=== PATIENT | female | born 1935 | race Caucasian/White ===

== ENCOUNTER → 2016-05-02 | Outpatient (CLI) | payer MEDICARE, BC ==
[~2016-05-02] MED LIST: CALC-136 PO; CELE-19 PO; FISH100049 PO; IRON27TA PO; ONETAB35 PO; PANT40TA2 PO; TYLE1TAB5 PO; VITA-130 PO
--- NOTE | 2016-05-02 09:58 | REPMRS ---
Patient History The patient states she has not had a clinical breast exam in over a year. Patient is postmenopausal. No known family history of cancer. Took hormonal contraceptives for 3 years. Took unspecified hormones for 1 year. Digital Mammo Screening Bilat: May 02, 2016 - Exam #: [id number] Bilateral CC and MLO view(s) were taken. Technologist: Daija Angeles, Technologist Prior study comparison: April 27, 2015, bilateral digital mammo screening bilat performed at [facility]. May 02, 2014, bilateral digital mammo screening bilat performed at [facility]. FINDINGS: There are scattered fibroglandular densities. There has been no change in the appearance of the mammogram from the prior studies. There is a mild amount of residual fibroglandular tissue which is fairly symmetric. There is no interval development of dominant mass, architectural distortion, or clustered microcalcification suggestive of malignancy. ASSESSMENT: BI-RADS/ACR category 1 mammogram. Negative. Recommendation Routine screening mammogram in 1 year (for women over age 40). This mammogram was interpreted with the aid of an FDA-approved computer-aided dectection system. Electronically Signed By: Saroj Flores MD 05/02/16 0958
== END ==
LOC: M RAD 09:34
PROVIDERS: ATTEND Nurse Practitioner Family
DX: Z12.31 Encounter for screening mammogram for malignant neoplasm of breast (principal); Z78.0 Asymptomatic menopausal state

== ENCOUNTER → 2017-06-03 | Outpatient (CLI) | payer MEDICARE, BC | LOC: M RAD 12:03 | DX: Z12.31 Encounter for screening mammogram for malignant neoplasm of breast (principal); Z78.0 Asymptomatic menopausal state; Z92.0 Personal history of contraception; Z92.29 Personal history of other drug therapy | CPT/HCPCS: 77067 ==

== ENCOUNTER 2017-10-05 18:55 | Emergency (ER) | payer MEDICARE, BC ==
[2017-10-05] MEDS: METOCLOPRAMIDE INJ 10MG/2ML VIAL (J2765) IV (19:49)
[2017-10-05] MEDS: NS 1,000 ML IV (19:49)
[2017-10-05 19:54] LABS: BASO % 0.1 % (0.0-1.0); EOS # 0.1 10^3/uL (0.0-0.50); EOS % 0.8 % (0.0-3.0); HEMATOCRIT 37.9 % (36.0-47.0); HEMOGLOBIN 12.5 g/dl (12.0-15.5); IMMATURE GRANULOCYTE % 0.4 % (0-3.0); LYMPH # 0.7 10^3/uL (1.5-4.5); LYMPH % 6.4 % (24.0-44.0); MEAN CORPUSCULAR HEMOGLOBIN 32.2 pg (27.0-33.0); MEAN CORPUSCULAR VOLUME 97.7 fl (80.0-96.0); MONO # 0.3 10^3/uL (0.0-0.8); MONO % 2.7 % (0.0-5.0); NEUTROPHILS # 9.2 10^3/uL (1.8-7.7); NEUTROPHILS % 89.6 % (36.0-66.0); PLATELET COUNT, AUTOMATED 224 10^3/uL (150-450); RED BLOOD COUNT 3.88 10^6/uL (4.00-5.40); RED CELL DISTRIBUTION WIDTH 12.9 % (11.5-14.5); WHITE BLOOD COUNT 10.3 10^3/uL (4.0-10.0)
[2017-10-05 19:58] LABS: INR 1.09; PROTHROMBIN TIME 14.2 SECONDS (12.1-14.4)
[2017-10-05 19:59] LABS: PARTIAL THROMBOPLASTIN TIME 27.6 SECONDS (25.4-37.6)
[2017-10-05] MEDS: MORPHINE 4 MG/ML 1ML VIAL/SYRINGE (J2270) IV (20:00)
[2017-10-05 20:08] LABS: ALBUMIN 3.6 GM/DL (3.2-5.2); ALBUMIN/GLOBULIN RATIO 1.16 (1.00-1.93); ALKALINE PHOSPHATASE 52 U/L (45-117); ALT/SGPT 16 U/L (12-78); ANION GAP 9 MEQ/L (8-16); AST/SGOT 15 U/L (7-37); BILIRUBIN,DIRECT 0.2 MG/DL (0.0-0.2); BILIRUBIN,TOTAL 0.8 MG/DL (0.2-1.0); BLOOD UREA NITROGEN 20 MG/DL (7-18); CALCIUM LEVEL 8.9 MG/DL (8.8-10.2); CARBON DIOXIDE LEVEL 28 MEQ/L (21-32); CHLORIDE LEVEL 103 MEQ/L (98-107); CREATININE FOR GFR 0.98 MG/DL (0.55-1.30); GLOMERULAR FILTRATION RATE 58.1 (>32); GLUCOSE, FASTING 135 MG/DL (70-100); LIPASE 88 U/L (73-393); POTASSIUM SERUM 4.5 MEQ/L (3.5-5.1); SODIUM LEVEL 140 MEQ/L (136-145); TOTAL PROTEIN 6.7 GM/DL (6.4-8.2)
[2017-10-05 20:16] LABS: LACTIC ACID SEPSIS PROTOCOL 1.3 MMOL/L (0.4-2.0)
== END 2017-10-05 21:00 | disposition home or self-care (01) ==
LOC: M ED 18:55
DX: K52.9 Noninfective gastroenteritis and colitis, unspecified (principal); K21.9 Gastro-esophageal reflux disease without esophagitis; M19.90 Unspecified osteoarthritis, unspecified site; M54.2 Cervicalgia; G89.29 Other chronic pain; Z95.0 Presence of cardiac pacemaker; Z79.899 Other long term (current) drug therapy
CPT/HCPCS: J2270

== ENCOUNTER → 2018-06-04 | Outpatient (CLI) | payer MEDICARE, BC ==
[~2018-06-04] MED LIST changes: -CELE-19 PO; +CELE1CAP4 PO; +GLUC1CAP9 PO; -IRON27TA PO; +IRON27TA2 PO; -PANT40TA2 PO; +PANT40TA3 PO; +SIMV40TA2 PO; -VITA-130 PO; +VITA500T PO
--- NOTE | 2018-06-04 11:00 | REPMRS ---
Patient History The patient states she has not had a clinical breast exam in over a year. No known family history of cancer. Took hormonal contraceptives for 3 years. Took unspecified hormones for 1 year. Digital Mammo Screening Bilat: June 04, 2018 - Exam #: [id number] Bilateral CC and MLO view(s) were taken. Technologist: Malathi Parker, Technologist Prior study comparison: June 03, 2017, bilateral digital mammo screening bilat performed at [facility]. May 02, 2016, bilateral digital mammo screening bilat performed at [facility]. April 27, 2015, bilateral digital mammo screening bilat performed at [facility]. FINDINGS: There are scattered fibroglandular densities. There is a pacemaker power plant projecting over the left axilla on the MLO view. There has been no change in the appearance of the mammogram from the prior studies. There is a mild amount of scattered fibroglandular density which is fairly symmetric. There is no interval development of dominant mass, architectural distortion, or clustered microcalcification suggestive of malignancy. 3-D tomosynthesis shows no additional findings. Assessment: BI-RADS/ACR category 2 mammogram. Benign Findings. Recommendation Routine screening mammogram of both breasts in 1 year (for women over age 40). This patient's Lifetime Breast Cancer RIsk is estimated at 0.9 %. This mammogram was interpreted with the aid of an FDA-approved computer-aided dectection system. Electronically Signed By: Max Johnston MD 06/04/18 7449
== END ==
LOC: M RAD 09:46
PROVIDERS: ATTEND Physician Assistant Medical
DX: Z12.31 Encounter for screening mammogram for malignant neoplasm of breast (principal); Z92.0 Personal history of contraception

== ENCOUNTER → 2019-12-16 | Outpatient (REF) | payer MEDICARE, BC ==
[~2019-12-16] MED LIST changes: +PANT40TA29 PO; -PANT40TA3 PO; -SIMV40TA2 PO; +SIMV40TA20 PO; +VITA-243 PO; -VITA500T PO
[2019-12-16 18:21] LABS: PERCENT SATURATION 38.2 % (13.2-45.0)
[2019-12-16 18:26] LABS: FOLATE 15.5 NG/ML
== END ==
LOC: M LAB REF 16:54
PROVIDERS: ATTEND Internal Medicine Nephrology
DX: D64.9 Anemia, unspecified (principal); N18.4 Chronic kidney disease, stage 4 (severe)

== ENCOUNTER → 2019-12-22 | Outpatient (CLI) | payer MEDICARE, BC ==
--- NOTE | 2019-12-22 13:39 | REP ---
INDICATION: CHRONIC KIDNEY DISEASE, STAGE 4 (SEVERE) W/ PVR. COMPARISON: CT chest 11/16/2015 showing a portion of upper pole left kidney TECHNIQUE: Standard renal ultrasound with color flow imaging FINDINGS: The right kidney is 8.6 x 4.2 x 3.9 cm. The cortical thickness is preserved but the length is diminished. 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 There is no hydronephrosis or hydroureter. Renal pelvis is mildly prominent but no gross hydronephrosis. Appearance suggest extrarenal pelvis I do not see a solid or cystic mass on the right. Color flow imaging was used on the right to separate vascular echoes from the extrarenal pelvis. The left kidney is 9.2 x 4.4 x 4.1 cm. Likewise cortical echogenicity is preserved but cortical thickness about 8 mm. Upper pole cyst laterally on the left measures 2.1 x 1.6 x 1.9 cm. There is an 9 x 7 x 6 mm lower pole cyst. IMPRESSION: 1. Mild cortical atrophy with mild sinus lipomatosis and no hydronephrosis or hydroureter. There does appear to be a mildly prominent extrarenal pelvis on the right. Two simple cysts on the left. No solid mass. <Electronically signed by Angelo Resendiz > 12/22/19 [id number]
--- NOTE | 2019-12-22 13:41 | REP ---
INDICATION: CHRONIC KIDNEY DISEASE, STAGE 4 (SEVERE) W/ PVR. COMPARISON: Pelvic ultrasound 09/22/2019 TECHNIQUE: Transabdominal images of the bladder were obtained. FINDINGS: Bladder measures 5.3 x 5.6 x 2.9 cm corresponding to bladder volume of 56 cc prevoid. Postvoid bladder measures 3.5 x 3.5 x 1.3 cm giving a a calculated volume of 12.9 cc. This is a 23% postvoid residual no ureteral jets were observed during the course of this examination. No bladder wall mass, ureterocele, diverticulum, debris or stone identified. IMPRESSION: 1. Bladder volume prevoid 56 mL with postvoid residual 23%. 2. No bladder wall mass, thickening, diverticulum, ureterocele or other significant finding. There is no stone or debris within the bladder. 3. No ureteral jet was observed. <Electronically signed by Angelo Resendiz > 12/22/19 [id number]
== END ==
LOC: M RAD 11:57
PROVIDERS: ATTEND Internal Medicine Nephrology
DX: N18.4 Chronic kidney disease, stage 4 (severe) (principal); E87.6 Hypokalemia; D64.9 Anemia, unspecified; R06.02 Shortness of breath

== ENCOUNTER → 2020-07-17 | Outpatient (CLI) | payer MEDICARE, BC ==
--- NOTE | 2020-07-17 11:49 | REPMRS ---
Patient History The patient states she has not had a clinical breast exam in over a year. No known family history of cancer. Took hormonal contraceptives for 3 years. Took unspecified hormones for 1 year. Best views possible due to patient condition. Patient is very frail and thin. She states she has not lost any weight recently. No breast complaints today Patient signed the MRS sheet Patient states she had both Moderna vaccines in the left arm but doean't know the dates. Priors on PACS Patient Identification Verified Digital Woman Screen Mammo: July 17, 2020 - Exam #: [id number] Bilateral CC and MLO view(s) were taken. Technologist: Daija Angeles, Technologist Prior study comparison: June 04, 2018, bilateral digital mammo screening bilat, performed at [facility]. June 03, 2017, bilateral digital mammo screening bilat, performed at [facility]. FINDINGS: The breast tissue is heterogeneously dense. This may lower the sensitivity of mammography. Screening. Digital screening (2D) mammography was performed bilaterally in the CC and MLO projections. Additionally, breast tomosynthesis (3D mammography) was performed bilaterally in the CC and MLO projections. Todays exam was compared to the prior exam/exams. By history, the patient has no complaints of a palpable breast abnormality or other significant breast complaints. The breasts are unchanged in size and shape.Once again, dense heterogenous fibroglandular elements are seen bilaterally in a stable appearing pattern but to such a degree that the sensitivity of the mammogram in detecting cancer is decreased. There are no maximiliano-soft tissue densities or spiculated masses. There is no internal architectural distortion. There are no suspicious maximiliano-calcific clusters. Skin thickening or nipple retraction is not present. IMPRESSION: BI-RADS Category 2- Benign Findings. There is no evidence of malignant alteration of the breasts. Followup examination recommended in one year. The Volpara volumetric breast density category is C, the breasts are heterogenously dense which may obscure small masses. This mammogram was read with the assistance of [employer],an FDA approved computer aided detection system for mammography. The lifetime Tyrer-Cuzick score is 0.4 % Negative x-ray reports should not delay surgical consultation if a dominant or clinically suspicious mass is present. Not all breast cancers can be identified by mammography. Therefore, we recommend that you continue to perform regular breast self-examination and physical examination and then promptly contact your physician of any concerns or changes. Adenosis and dense breasts may obscure an underlying neoplasm. Assessment: BI-RADS/ACR category 2 mammogram. Benign Findings. Recommendation Routine screening mammogram of both breasts in 1 year. Electronically Signed By: Rakesh Myles DO 07/17/20 1142
== END ==
LOC: M WHC 10:54
PROVIDERS: ATTEND Physician Assistant Medical
DX: Z12.31 Encounter for screening mammogram for malignant neoplasm of breast (principal); Z92.0 Personal history of contraception; Z92.29 Personal history of other drug therapy

== ENCOUNTER → 2020-11-20 | Outpatient (REF) | payer MEDICARE, BC | LOC: M LAB REF 17:11 | PROVIDERS: ATTEND Internal Medicine Nephrology | DX: N18.32 Chronic kidney disease, stage 3b (principal) ==

== ENCOUNTER 2020-12-04 05:40 | Emergency (ER) | payer MEDICARE, BC ==
[~2020-12-04] VITALS: Ht 157.5 cm; Wt 48.3 kg
--- OUTSIDE RECORDS SUMMARY | 2020-12-04 05:49 | CCD | Continuity of Care Document ---
Author Author Adrián ALMEIDA DPM Organization Unknown Address [address] [place] [address], [address] [place] [address] Phone [phone] Care Team Providers Care Station Inspector Name Role Phone Kayleen Roberts AUTM [phone] Problems Active Problems Provider Date Hammer toe Fer Almeida DPM Onset: 04/09/2016 Corns and callus Fer Almeida DPM Onset: 04/09/2016 Social History Type Date Description Comments Sex Unknown ETOH Use Rarely consumes alcohol maybe schmid s 1 or 2 glasses a year. Tobacco Use Start: Unknown Patient has never smoked Allergies, Adverse Reactions, Alerts Active Allergies Reaction Severity Comments Date Lactose (Intolerance) 2015 Inactive Allergies NKDA 01/18/2011 Medications Active Medications SIG Qnty Indications Ordering Provide r Date Celebrex Unknown Pantoprazole Sodium Unknown Glucosamine Chondroitin 1500 Complex Maximum Strength Unknown Immunizations Description No Information Available Vital Signs Date Vital Result Comment 10/08/2017 9:43am Height 62 inches 5'2" Weight 110.00 lb BP Systolic 100 mmHg BP Diastolic 50 mmHg Heart Rate 64 /min BMI (Body Mass Index) 20.1 kg/m2 01/28/2017 10:34am Height 62 inches 5'2" Weight 106.00 lb BP Systolic 118 mmHg BP Diastolic 64 mmHg Heart Rate 60 /min BMI (Body Mass Index) 19.4 kg/m2 Results Description No Information Available Procedures Date Code Description Status 08/28/2020 96871 Office/Outpatient Established SF MDM 10-19 Min Completed 05/01/2020 51428 Office/Outpatient Established SF MDM 10-19 Min Completed Medical Devices Description No Information Available Encounters Type Date Location Provider Dx Diagnosis Office Visit 08/28/2020 1:45p [facility] Fer Almeida DPM M20.40 Other hammer toe(s) (acquired), unspecified foot L84 Corns and callosities Office Visit 05/01/2020 1:45p [place] [facility] Fer Almeida DPM M20.40 Other hammer toe(s) (acquired), unspecified foot L84 Corns and callosities Assessments Date Code Description Provider 08/28/2020 M20.40 Other hammer toe(s) (acquired), unspecified foot Fer Almeida, MICHAEL 08/28/2020 L84 Corns and callosities Fer Almeida DPM 05/01/2020 M20.40 Other hammer toe(s) (acquired), unspecified foot Fer Almeida, MICHAEL 05/01/2020 L84 Corns and callosities Fer Almeida DPM Plan of Treatment Future Appointment(s):* 12/29/2020 1:45 pm - Fer Almeida DPM at [facility] Functional Status Description No Information Available Mental Status Description No Information Available Referrals Description No Information Available
--- OUTSIDE RECORDS SUMMARY | 2020-12-04 05:49 | CCD ---
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 Leonardo guzman DO Active Epiphora 08/22/2020 - 12:00AM Leonardo Conde DO Active Ectropion 08/22/2020 - 12:00AM Leonardo Conde DO Active Posterior Capsule Opacification Eccentric Capsule Both Eyes 04/20/2019 - 12:00AM Leonardo Conde DO Active Strabismus Non-paralytic Esotropia Alternating 04/20/2019 - 12:0 0AM Leonardo Conde DO Active Seeing Double Images Horizontally 04/20/2019 - 12:00AM Leonardo Conde DO Inactive Pseudophakia 04/20/2019 - 12:00AM Leonardo Conde DO Active Dry Eye Syndrome 04/20/2019 - 12:00AM Leonardo sebastian DO Active Vitreous Disorders Degeneration 04/20/2019 - 12:00AM Kory Conde DO Active Plan of Treatment Future Appointments Date Time Location Provider 1 Year Follow-Up 12/06/2020 2:00PM Heriberto Ovalle MD [facility] Leonardo Conde DO Assessments Includes: Assessments for all patient encounters Findings Encounter Date Dry eye syndrome TRIAGE NON URGENT with Leonardo Conde DO 08/22/2020 Epiphora TRIAGE NON URGENT with Leonardo Conde DO 08/22/2020 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 TRIAGE NON URGENT with Leonardo Conde DO 08/22/2020 Squamous blepharitis right eye, 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, upper and lower eyelids TRIAGE NON URGENT with Leonardo Conde DO 08/22/2020 Dry eye syndrome 5 Month Follow-Up with Leonardo Conde DO 12/01/2019 Posterior capsule opacification of eccentric capsule i n both eyes 5 Month Follow-Up with Leonardo Conde DO 12/01/2019 Pseudophakia 5 Month Follow-Up with Leonardo Conde DO 12/01/2019 Trichiasis of eyelid 5 Month Follow-Up with Leonardo sebastian DO 12/01/2019 Vitreous degeneration 5 Month Follow-Up with Leonardo Steele in DO 12/01/2019 Alternating esotropia 2 Week Follow-Up with Leonardo sebastian DO 08/04/2019 Alternating esotropia TRIAGE NON URGENT with Leonardo Steele in DO 07/21/2019 Assessment of horizontal diplopia TRIAGE NON URGENT with Ilan Conde DO 07/21/2019 Alternating esotropia 2 Month Follow up with Leonardo Steele in DO 07/02/2019 Dry eye syndrome 2 Month Follow up with Leonardo Conde DO 07/02/2019 Posterior capsule opacification of eccentric capsule i n both eyes 2 Month Follow up with Leonardo Conde 07/02/2019 Pseudophakia 2 Month Follow up with Leonardo Conde DO 07/02/2019 Alternating esotropia NEW PATIENT WITH REFERRAL with Leonardo Conde DO 04/20/2019 Diplopia NEW PATIENT WITH REFERRAL with Leonardo guardado DO 04/20/2019 Dry eye syndrome NEW PATIENT WITH REFERRAL with Leonardo guardado DO 04/20/2019 Posterior capsule opacification of eccentric capsule i n both eyes NEW PATIENT WITH REFERRAL with Leonardo Conde DO 04/20/2019 Pseudophakia NEW PATIENT WITH REFERRAL with Leonardo guardado DO 04/20/2019 Vitreous degeneration NEW PATIENT WITH REFERRAL with Leonardo Conde DO 04/20/2019 Instructions Instructions not supported for this document typeNo Instructions Recorded Medical Equipment - Implanted Devices Includes: Current and historical DevicesNo Medical Equipment Recorded Medications Includes: Current and historical Medications Current Medications (continue as prescribed) Pantoprazole 40 MG Oral Tablet 04/20/2019 Provider: Diagnosis: [facility] Vitamin C 500 MG Oral Tablet 04/20/2019 Provide r: Diagnosis: [facility] Vitamin B-12 500 MCG Oral Tablet 04/20/2019 Pro vider: Diagnosis: Vitamin D3 1000 MG Oral Tablet 04/20/2019 Provider: Diagnosis: [facility] Fish Oil 1000 MG Oral Capsule 04/20/2019 Provid er: Diagnosis: Ginkoba 120 MG Oral Capsule 04/20/2019 Provider: Diagnosis: Carbonyl Iron 45 MG Oral Tablet 04/20/2019 Provider : Diagnosis: Biotin 5000 MCG Oral Capsule 04/20/2019 Provider: Diagnosis: Oxybutynin Chloride ER 10 MG Oral Tablet Extended Release 24 Hour 04/20/2019 Provider: Diagnosis: Past Medications on file Tobramycin-Dexamethasone 0.3-0.1% Ophthalmic Suspension 08/10 - 08/22/2020 Provider: Diagnosis: Medications Administered Includes: Administered Medications in patient's chartNo Administered Medications Recorded Vital Signs Includes: Vital Signs from 10/16/2019 through 2020No Vital Signs Recorded For Specified Dates Results Includes: Results from 10/16/2019 through 2020No Results Recorded For Specified Dates History of Present Illness History of Present Illness not supported for this document typeNo History of Present Illness Recorded Social History Description Last Updated Tobacco non-user 08/22/2020 Not a current smoker 12/01/2019 Not using alcohol 12/01/2019 Not using drugs 12/01/2019 Smoking status : Never smoker 12/01/2019 Procedures and Surgical History Includes: Procedures from 10/16/2019 through 2020 Procedures Code Diagnosis Performing Provider Service Location Service Date Epilation of Trichiasis (LEFT LOWER LID) 28318 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 & Man.) 27805 Other secondary cataract, bilateral, Presence of intraocular lens, Dry eye syndrome of bilateral lacrimal glands, Vitreous degeneration, bilateral Leonardo Miller MD [facility] 12/01/2019 Surgical History Last Updated History of excision of a single chalazion of the left upper eyelid 08/22/2020 History of extracapsular cataract extrac tion PCIOL Right Eye 08/08/2016, PCIOL Left Eye 07/25/2016 12/01/2019 Surgical / procedural history Pacemaker put in in 1987, Pacemaker replaced 2015, Uterin Tumor Removed 1976 12/01/2019 Medical History Includes: Medical History in patient's chart Description Last Updated Currently wearing eyeglasses 12/01/2019 No recent change in medical history 12/01/2019 Reported medical history Heartburn 12/01/2019 Family History Includes: Family History in patient's chart Description Last Updated Fraternal history of heart disease 12/01/2019 Maternal history of heart disease 12/01/2019 Paternal history of heart disease 12/01/2019 Sororal history of heart disease 12/01/2019 Review of Systems Review of Systems not supported for this document typeNo Review of Systems Recorded Mental Status Mental Status not supported for this document type Description Oriented to time, place, and person Functional Status Functional Status not supported for this document typeNo Functional Status Recorded Physical Exam Physical Exam not supported for this document typeNo Physical Exam Recorded Immunizations Includes: Immunizations in patient's chartNo Immunizations Recorded Allergies Includes: Active, inactive, and resolved Allergies Substance Type Reaction Onset Date - Time Resolved Date - Ti me Status Lactose Allergy 04/20/2019 - 12:00AM Acti ve Encounters Includes: Encounters from 10/16/2019 through 2020 Encounter Provider Location Date Check-In Time Check-Out Time D iagnosis TRIAGE NON URGENT Leonardo Miller MD [facility] 8:03AM 8:48AM Blepharitis Squamous, Dry Ey e Syndrome, Ectropion, Epiphora 5 Month Follow-Up Leonardo Miller MD [facility] 2:18PM 3:38PM Pseudophakia, Vitreous Disor ders Degeneration, Dry Eye Syndrome, Trichiasis of Eyelid, Posterior Capsule Opacification Eccentric Capsule Both Eyes Insurance Includes: Active Insurance Policies Plan Name Member ID Group # Subscriber Relationship Effective Da so 1 - Medicare Part B [facility] ([place]) [id number] Adrián morelos Self 2 - [facility] [id number] Adrián Downing Advance Directives Includes: Current Advance DirectivesNo Advance Directives Recorded Health Concerns Includes: Active Health ConcernsNo Active Health Concerns Recorded Goals Includes: Active GoalsNo Active Goals Recorded Interventions Includes: Interventions for active GoalsNo Interventions Recorded Evaluations & Outcomes Includes: Evaluations & Outcomes for active GoalsNo Outcomes Recorded
--- OUTSIDE RECORDS SUMMARY | 2020-12-04 05:49 | CCD | Continuity of Care Document ---
Author Author Adrián WAY Organization Unknown Address [address] [facility] [address] [place] [address] Phone [phone] Care Team Providers Care Land Agent Name Role Phone IRAM WAY AUTM [phone] Social History Type Date Description Comments Sex Unknown Allergies, Adverse Reactions, Alerts Active Allergies Criticality Reaction | Severity Comments Date Lactose (Intolerance) Unable to assess criticality 11/12/2019 Medications Active Medications SIG Qnty Indications Ordering Provide r Date Macrobid 100mg Capsules take one capsule by mouth twice a day for 10 days. 20caps [facility] 06/20/2020 Flonase Allergy Relief 50mcg/Act Suspension 2 sprays each nostril daily 18.200ml [facility] 04/05/2020 Fish Oil 1000mg Capsules [facility] 02/02/2020 Vitamin D-3 25mcg (1000 Ut) Capsules [facility] 02/02/2020 Ferrous Sulfate 325mg Tablets [facility] 02/02/2020 Biotin 5000 5mg Capsules 1 by mouth every day [facility] 020 Trazodone HCL 50mg Tablets 1/2 by mouth every day 15tabs [facility] 020 Medications Administered in Office Medication SIG Qnty Indications Ordering Provider Date Lexiscan Injection [facility] 11/10/2019 Technetium TC 99M Sestamibi Injection [facility] 11/10/2019 Vital Signs Date Vital Result Comment 06/15/2020 11:21am Height 60 inches 5'0" Weight 106.50 lb BMI (Body Mass Index) 20.8 kg/m2 Body Temperature 97.5 F BP Systolic 110 mmHg BP Diastolic 61 mmHg Heart Rate 75 /min O2 % BldC Oximetry 93 % 04/05/2020 11:16am Height 60 inches 5'0" Weight 107.00 lb BMI (Body Mass Index) 20.9 kg/m2 Body Temperature 97.7 F BP Systolic 105 mmHg BP Diastolic 55 mmHg Heart Rate 84 /min O2 % BldC Oximetry 98 % Results Test Acquired Date Facility Test Result H/L Range Note Laboratory test finding 06/15/[address] [address] [phone] Hgba1c 5.8 % 4.4 - 6.1 1 CBC W/Automated Diff 06/15/[address] [address] [phone] CBC W/Automated Diff (SEE NOTE) 2 WBC 5.2 10^3/uL 4.2 - 11.0 RBC 3.55 10^6/uL Low 4.20 - 5.40 Hemoglobin 11.5 g/dL Low 12.0 - 16.0 Hematocrit 35.1 % Low 37.0 - 47.0 MCV 98.9 fL 81.0 - 101 MCH 32.4 pg 27.0 - 34.0 MCHC 32.8 g/dL 31.0 - 36.0 RDW 13.9 % 11.5 - 14.5 Platelets 238 10^3/uL 150 - 450 MPV 8.5 fL 7.4 - 10.4 Neut 48.3 % 37.0 - 80.0 Lymph 40.9 % High 25.0 - 40.0 [place] 5.6 % 3.0 - 8.0 Eos 3.8 % 0.0 - 7.0 Baso 1.2 % 0.0 - 2.5 %Ig 0.2 % High 0.0 - 0.0 %NRBC 0.0 % 0.0 - 0.0 #Neut 2.52 10^3/uL 2.00 - 6.90 #Lymph 2.13 10^3/uL 0.60 - 3.40 #[place] 0.29 10^3/uL 0.00 - 0.90 #Eos 0.20 10^3/uL 0.00 - 0.70 #Baso 0.06 10^3/uL 0.00 - 0.20 #Ig 0.01 10^3/uL 0.00 - 0.10 #NRBC 0.00 10^3/uL 0.00 - 0.00 Manual Diff NOT INDICATED RBC Morph NOT INDICATED Laboratory test finding 06/15/2020 [facility] [address] [place] [address] [phone] Iron 74 g/dL 42 - 135 Magnesium Serum 2.0 mg/dL 1.7 - 2.2 CRP (High Sensitivity) 0.57 mg/L Low 1.00 - 3.00 3 Comprehensive Metabolic Panel 06/15/2020 [facility] [address] [place] [address] [phone] Comprehensive Metabo (SEE NOTE) 4 Sodium 139 mEq/L 134 - 153 Potassium 4.6 mEq/L 3.6 - 5.0 Chloride 103 mEq/L 98 - 107 Co2 26 mEq/L 22 - 30 Glucose 105 mg/dL High 70 - 99 BUN 20 mg/dL 7 - 21 Creatinine 0.9 mg/dL 0.7 - 1.5 BUN/Creat 22 8 - 27 Total Protein 7.4 g/dL 6.3 - 8.2 Albumin 4.4 g/dL 3.9 - 5.0 Globulin 3.0 GM/DL 2.4 - 3.2 A/G Ratio 1.5 0.8 - 2.0 Calcium 10.0 mg/dL 8.4 - 10.2 Total Bili <0.7 mg/dL 0.2 - 1.3 Alkaline Phos 51 U/L 38 - 126 Sgot/Ast 15 U/L 5 - 40 SGPT/Alt 9 U/L 7 - 56 Anion Gap 10.0 mmol/L 8.0 - 16.0 Age 84 yrs Non-Aa GFR >60 mL/min Afr Amer GFR >60 5 Cve Panel 06/15/[address] [address] [phone] Cve Panel (SEE NOTE) 6 Cholesterol 189 mg/dL 131 - 200 Triglycerides 136 mg/dL 35 - 160 HDL 76 mg/dL 29 - 86 LDL 101 mg/dL 65 - 175 Risk Factor 2.5 Low 3.2 - 4.4 LDL/HDL 1.33 Low 1.47 - 3.22 7 Laboratory test finding 06/15/[address] [address] [phone] T4 - Free 1.43 ng/dL 0.93 - 1.70 Urinalysis 06/15/[address] [address] [phone] Urinalysis (SEE NOTE) 8 Source R Color yellow Normal: Yellow Clarity clear Normal: Clear Spec [place] 1.010 1.001 - 1.030 pH 5 5 - 9 Glucose NORM Normal: Negative Bilirubin NEG Normal: Negative Ketone NEG Normal: Negative Protein NEG Normal: Negative Nitrite NEG Normal: Negative Blood NEG Normal: Negative Leuk Est 25 Normal: Negative Urobilinogen NOR less than 1.0 mg/dL Microscopic See Below WBC 0 - 1 Normal: None Seen RBC None Seen Normal: None Seen Epithelial FEW Normal: None Seen Mucous Trace Normal: None Seen Laboratory test finding 06/15/[address] [address] [phone] Vitamin B12 Serum 1361 pg/mL High 232 - 1245 TSH Highly Sensitive 0.81 uIU/mL 0.47 - 5.01 Lyme Disease Antibodies 06/15/[address] [address] [phone] Lyme IgG/IgM Ab <0.91 ISR 0.00-0.90 9 Lyme Disease Ab, Quant,IgM <0.80 index 0.00-0.79 1 0 Culture Urine 06/15/[address] [address] [phone] Culture Urine (SEE NOTE) 11 1 {A1] {HB] 2 COMPLETE BLOOD COUNT 3 CDC/S HS-CRP CUT-OFF: RELATIVE RISK: <1.0 mg/L Low 1.0 - 3.0 mg/L A verage >3.0 mg/L High Optimally, the average of HS-CRP results repeated two weeks apart should be used for risk assessment. 4 COMPREHENSIVE METABOLIC PANE L 5 Male GFR Interprentation 20-49 yrs >60 mL/min Normal 50-59 yrs >56 mL/min Normal 60-69 yrs >49 mL/min Normal 70-79yrs >42 mL/min Normal 80 and above >35 mL/min Normal Female GFR Interpretation 20-39 yrs >60 mL/min Normal 40-49 yrs >58 mL/min Normal 50-59 yrs >51 mL/min Normal 60-69 yrs >45 mL/min Normal 70-79 yrs >39 mL/min Normal 80 and above >32 mL/min Normal 6 LIPID PANEL 7 CVE RISK CHOL/HDL LDL/HDL MEN: 1/2 AVERAGE 3.43 1.00 AVERAGE 4.97 3.55 2X AVERAGE 9.55 6.25 3X AVERAGE 23.99 7.99 WOMEN: 1/2 AVERAGE 3.27 1.47 AVERAGE 4.44 3.22 2X AVERAGE 7.05 5.03 3X AVERAGE 11.04 6.14 8 URINALYSIS 9 Negative <0.91 Equivocal 0.91 - 1.09 Positive >1.09 10 Negative <0.80 Equivocal 0.80 - 1.19 Positive >1.19 IgM levels may peak at 3-6 weeks post infection, then gradually decline. 11 _CULTURE URINE_ ^$[id number] ^^[id number] $$067296 ^^[id number] $$357162 $$753234 $$017128 $$122636 $$987557 $$183485 $$506109 $$514158 $$813928 $$680810 $$656433 $$737079 $$435025 $$234110 $$405072 $$125974 $$585478 $$621820 $$355430 $$721417 $$754342 $$625832 $$088777 ^^557570 $$019155 $$579761 $$[id number] -- Continued on next page -- Patient: HARMEET Melgoza Order: [id number] Page 2 Culture: CULTURE URINE Status: Final -- Continued on next page -- Patient: HARMEET Melgoza Order: Page 2 Culture: CULTURE URINE Status: Prelim $$[id number] $$[id number] REPORTED DATE/TIME: 06/20/2020 07:06 Culture: CULTURE URINE Status: Final Isolate 1 Escherichia coli Flag: A . . . . . . .1 1,000 Colonies/mL Cefazolin <=4 ug/mL Cefazolin with an ALDEN <=16 predicts susceptibility to the oral agents cefaclor, cefdinir, cefpodoxime, cefprozil, cefuroxime, cephalexin, and loracarbef when used for therapy of uncomplicated urinary tract infections due to E. coli, Klebsiella pneumoniae, and Proteus mirabilis. Previous result entered on 06/17/2020 23:58 ET Gram negative rods Urine Culture,Comprehensive: P1 Escherichia coli Flag: A Patient: HARMEET Melgoza Order: [id number] Page 3 Culture: CULTURE URINE Status: Final ISOLATE 1 Escherichia coli Isolate 1 Antibiotic ALDEN Int Units ug/mL Amoxicillin/Clavulanic Acid S S . . . . . .20-8 Ampicillin R R . . . . . .28-1 Cefepime S S . . . . . .6644-9 Ceftriaxone S S . . . . . .141-2 Cefuroxime S S . . . . . .145-3 Ciprofloxacin S S . . . . . .185-9 Ertapenem S S . . . . . .97991-7 Gentamicin S S . . . . . .267-5 Imipenem S S . . . . . .279-0 Levofloxacin S S . . . . . .57829-7 Meropenem S S . . . . . .6652-2 Nitrofurantoin S S . . . . . .363-2 Piperacillin/Tazobactam S S . . . . . .412-7 Tetracycline R R . . . . . .496-0 Tobramycin S S . . . . . .508-2 Trimethoprim/Sulfa R R . . . . . .516-5 P1 Test performed by: [facility] #: [id number] [address] [place] [id number] [facility] [address] Whizzer Operator : Killian Galaviz MD NPI #: Firearms Assembly Supervisor : 06/19/[email or web address] REF 06/20/20.0747.XMT.SENT REF Procedures Date Code Description Status 10/09/2020 89300 Office/Outpatient Established SF MDM 10-19 Min Completed 06/15/2020 17902 Office/Outpatient Established Mo d MDM 30-39 Min Completed 06/14/2020 92479 Office/Outpatient Established SF MDM 10-19 Min Completed Encounters Type Date Location Provider Dx Diagnosis Office Visit 10/09/2020 10:30a [facility] SOWMYA Jacobo R21 Rash and other nonspecific s kin eruption E55.9 Vitamin D deficiency, unspec ified Office Visit 06/15/2020 11:00a [facility] I10 Essential (primary) hypertension D50.9 Iron deficiency anemia, unsp ecified G45.9 Transient cerebral ischemic attack, unspecified R53.83 Other fatigue Office Visit 06/14/2020 8:45a [facility] SOWMYA Jacobo I10 Essential (primary) hyperten shahid E78.5 Hyperlipidemia, unspecified Assessments Date Code Description Provider 10/09/2020 R21 Rash and other nonspecific skin eruption SOWMYA Jiang 10/09/2020 E55.9 Vitamin D deficiency, unspecifie d SOWMYA Jiang 06/15/2020 I10 Essential (primary) hypertension [facility] 06/15/2020 D50.9 Iron deficiency anemia, unspecif ied [facility] 06/15/2020 G45.9 Transient cerebral ischemic lori ck, unspecified [facility] 06/15/2020 R53.83 Other fatigue Vance Monroy[facility] 06/14/2020 I10 Essential (primary) hypertension SOWMYA Jiang 06/14/2020 E78.5 Hyperlipidemia, unspecified Frederick SOWMYA Cole Plan of Treatment Future Appointment(s):* 12/13/2020 8:30 am - SOWMYA Jiang at [facility] Referrals Refer to Reason for Referral Status Appt Date Pablo Dutton MD, Faad PATIENT WITH CHANGES T O SKIN TEXTURE ON FOREHEAD. PLEASE EVAL AND TREAT.V Created [facility] [address] [id number] [phone]
--- OUTSIDE RECORDS SUMMARY | 2020-12-04 05:49 | CCD | Continuity of Care Document ---
Author Author Adrián LI F.N.P. Organization Unknown Address [address] [place] [address] Phone [phone] Care Team Providers Care Residential Green Building Designer Name Role Phone Thadshirley Margie BEAUCHAMP AUTM [phone] Ayush Porter RPA-C AUTM [phone] Problems Description No Information Available Social History Type Date Description Comments Sex Unknown Tobacco Use Start: Unknown Never Smoked Cigarettes ETOH Use Rarely consumes alcohol Tobacco Use Start: Unknown Patient has never smoked Sun Exposure moderate amount of sun exposure Sun Exposure Has never experienced blistering from sunburns Sun Exposure Uses > 30 SPF Sun Exposure Tanning bed - Has used in past. No longer using. Allergies and adverse reactions Active Allergies Criticality Reaction | Severity Comments Date Lactose Intolerance Unable to assess criticality 02/15/2009 Inactive Allergies NKDA Unable to assess criticality 02/17/2008 Medications Active Medications SIG Qnty Indications Ordering Provide r Date Fish Oil 1000mg Capsules Unknown Iron 28mg Tablets Unknown Biotin 5000 Unknown D3 Adult Unknown B12 Fast Dissolve Unknown /0 000 Medications Administered in Office Medication SIG Qnty Indications Ordering Provider Date Injection Intralesional Up To 7 Injection Katy Li, F.N.P. Immunizations Description No Information Available Vital Signs Date Vital Result Comment 11/07/2020 11:20am BP Systolic 115 mmHg BP Diastolic 72 mmHg Heart Rate 96 /min Weight 106.00 lb 08/09/2020 2:20pm BP Systolic 122 mmHg BP Diastolic 68 mmHg Weight 108.00 lb Respiratory Rate 18 /min Results Test Acquired Date Facility Test Result H/L Range Note Laboratory test finding 07/11/2020 [facility] Thyroid Stimulating Hormone (TSH) <pending> Laboratory test finding 07/11/2020 [facility] TSH 0.975 uIU/mL 0.450-4.500 1 PDF [id number] SEE IMAGE BXDX Pathology 07/05/2020 [facility] LC Icd9 Code ICD9 Code: L90.5 2 PDFReport SEE IMAGE 1 No further treatment necessa ry 2 ICD9 Code: L90.5 Protocol: shave Clinical Text: SCAR VS BCC Final Diagnosis: SCAR. Final Diagnosis: Note: No basal cell carcinoma is identified on initial and multiple level examined sections. Gross Text: The specimen grossly was oval shaped, measuring 2 x 2 mm. on the surface and 1 mm. deep. All of the tissue was submitted for processing. Microscopic Description: There is fibrillary collagen oriented parallel to the overlying surface epidermis with numerous dilated blood vessels oriented perpendicularly to the overlying surface epidermis. Lesional cells fail to highlight with a BerEP4 immunostain. Initial and multiple level sections were examined. CPT: 33280*1 CPT: 81310*1 CPT: 01074*1 Procedures Date Code Description Status 11/07/2020 48799 Office/Outpatient Established Mo d MDM 30-39 Min Completed 11/07/2020 44938 Destruction Benign L esions Other Than Skin Tags Or Cutan Vascular Completed 08/09/2020 43481 Destruction Benign L esions Other Than Skin Tags Or Cutan Vascular Completed 07/11/2020 82176 Office/Outpatient Established SF MDM 10-19 Min Completed 07/05/2020 65382 Office/Outpatient Established Mo d MDM 30-39 Min Completed 07/05/2020 31727 Shave Biopsy Of Skin, Single Les ion Completed 06/12/2020 45563 Destruction Of Lesions 2-14 Comp leted 06/12/2020 13850 Destruction Of Lesion First Comp leted Medical Devices Description No Information Available Encounters Type Date Location Provider Dx Diagnosis Office Visit 11/07/2020 11:15a Main Office Katy Li, F.N.P. L82.1 Other seborrheic keratosis R20.8 Other disturbances of skin s ensation Office Visit 07/11/2020 10:45a Main Office Katy Li, F.N.P. L65.8 Other specified nonscarring hair loss Office Visit 07/05/2020 3:30p Main Office [place] S. MICKIE MatthewP- D48.5 Neoplasm of uncertain behavior of skin L82.1 Other seborrheic keratosis R20.8 Other disturbances of skin s ensation R53.83 Other fatigue L65.8 Other specified nonscarring hair loss Assessments Date Code Description Provider 11/07/2020 L82.1 Other seborrheic keratosis CHEYENNE Guillen 11/07/2020 L82.1 Other seborrheic keratosis Laine nagel O'cherelle, F.N.P. 11/07/2020 R20.8 Other disturbances of skin sensa tion CHEYENNE King 11/07/2020 R20.8 Other disturbances of skin sensa tion Katy O'cherelle, F.N.P. 08/09/2020 L82.1 Other seborrheic keratosis Gregg Hernandez [facility] 08/09/2020 R20.8 Other disturbances of skin sensa tion Gregg Hernandez [facility] 07/11/2020 L65.8 Other specified nonscarring hair loss [facility]2020 L65.8 Alopecia Katy O'joce n, F.N.P. 07/05/2020 D48.5 Neoplasm of uncertain behavior o f skin Virginia S. CHEYENNE Matthew-C 07/05/2020 L82.1 Other seborrheic keratosis Gaby ea S. Tiff, FREIGHT ENGINEER-C 07/05/2020 R20.8 Other disturbances of skin sensa tion Virginia S. Terrellerheather [employer]RE[employer] ENGINEER-C 07/05/2020 R53.83 Other fatigue Virginia S. Veronique max [employer]REIGHT ENGINEER-C 07/05/2020 L65.8 Alopecia Virginia S. Veronique max, [facility] 06/12/2020 L57.0 Actinic keratosis [place] S. Luis scott FREIGHT ENGINEER- Plan of Treatment Future Appointment(s):* 02/20/2021 9:00 am - Yamile Camacho at Main Office 11/07/2020 - [place] Camacho.* L82.1 Other seborrheic keratosis* Comments:* Discussed seborrheic keratoses are benign warty growths on the skin that appear with age and that they are not contagious. The precise cause of Stephen K's is unknown although can run in families so genes may play a role Discussed LN2 at length to include that the areas treated will get red, bubble up/blister, maybe get a little weepy, form a scab then heal. Discussed S/E to include scarring, risk of hypopigmentation, bleeding, infectionInformed consent signedLN2 today to 3 SK's located on forehead and L cheek due to irritation. Wound care instructions givenInstructed to call with any problems * R20.8 Other disturbances of skin sensation* Comments:* See above. * Follow up:* Has appointment Functional Status Description No Information Available Mental Status Description No Information Available Referrals Refer to Reason for Referral Status Appt Date Katy Li, FREIGHT ENGINEER Closed [address] [place] [address] [phone]"
--- OUTSIDE RECORDS SUMMARY | 2020-12-04 05:50 | CCD ---
Author Author [facility] Organization [facility] Address Unknown Phone Unavailable Care Team Providers Care Nursing Consultant Name Role Phone KIRSCHMAN, L RICHARD REGISTERED ROUTE ASSOCIATE Unavailable Unavailable KIRSCHMAN, L RICHARD REGISTERED ROUTE ASSOCIATE Unavailable Unavailable KIRSCHMAN, L RICHARD REGISTERED ROUTE ASSOCIATE Unavailable Unavailable KIRSCHMAN, L RICHARD REGISTERED ROUTE ASSOCIATE Unavailable Unavailable KIRSCHMAN, L RICHARD REGISTERED ROUTE ASSOCIATE Unavailable Unavailable KIRSCHMAN, L RICHARD REGISTERED ROUTE ASSOCIATE Unavailable Unavailable KIRSCHMAN, L RICHARD REGISTERED ROUTE ASSOCIATE Unavailable Unavailable KIRSCHMAN, L RICHARD REGISTERED ROUTE ASSOCIATE Unavailable Unavailable KIRSCHMAN, L RICHARD REGISTERED ROUTE ASSOCIATE Unavailable Unavailable KIRSCHMAN, L RICHARD REGISTERED ROUTE ASSOCIATE Unavailable Unavailable KIRSCHMAN, L RICHARD REGISTERED ROUTE ASSOCIATE Unavailable Unavailable KIRSCHMAN, L RICHARD REGISTERED ROUTE ASSOCIATE Unavailable Unavailable KIRSCHMAN, L RICHARD REGISTERED ROUTE ASSOCIATE Unavailable Unavailable KIRSCHMAN, L RICHARD REGISTERED ROUTE ASSOCIATE Unavailable Unavailable KIRSCHMAN, L RICHARD REGISTERED ROUTE ASSOCIATE Unavailable Unavailable KIRSCHMAN, L RICHARD REGISTERED ROUTE ASSOCIATE Unavailable Unavailable KIRSCHMAN, L RICHARD REGISTERED ROUTE ASSOCIATE Unavailable Unavailable KIRSCHMAN, L RICHARD REGISTERED ROUTE ASSOCIATE Unavailable Unavailable KIRSCHMAN, L RICHARD REGISTERED ROUTE ASSOCIATE Unavailable Unavailable KIRSCHMAN, L RICHARD REGISTERED ROUTE ASSOCIATE Unavailable Unavailable KIRSCHMAN, L RICHARD REGISTERED ROUTE ASSOCIATE Unavailable Unavailable KIRSCHMAN, L RICHARD REGISTERED ROUTE ASSOCIATE Unavailable Unavailable KIRSCHMAN, L RICHARD REGISTERED ROUTE ASSOCIATE Unavailable Unavailable KIRSCHMAN, L RICHARD REGISTERED ROUTE ASSOCIATE Unavailable Unavailable KIRSCHMAN, L RICHARD REGISTERED ROUTE ASSOCIATE Unavailable Unavailable KIRSCHMAN, L RICHARD REGISTERED ROUTE ASSOCIATE Unavailable Unavailable KIRSCHMAN, L RICHARD REGISTERED ROUTE ASSOCIATE Unavailable Unavailable KIRSCHMAN, L RICHARD REGISTERED ROUTE ASSOCIATE Unavailable Unavailable KIRSCHMAN, L RICHARD REGISTERED ROUTE ASSOCIATE Unavailable Unavailable KIRSCHMAN, L RICHARD REGISTERED ROUTE ASSOCIATE Unavailable Unavailable KIRSCHMAN, L RICHARD REGISTERED ROUTE ASSOCIATE Unavailable Unavailable KIRSCHMAN, L RICHARD REGISTERED ROUTE ASSOCIATE Unavailable Unavailable KIRSCHMAN, L RICHARD REGISTERED ROUTE ASSOCIATE Unavailable Unavailable KIRSCHMAN, L RICHARD REGISTERED ROUTE ASSOCIATE Unavailable Unavailable KIRSCHMAN, L RICHARD REGISTERED ROUTE ASSOCIATE Unavailable Unavailable KIRSCHMAN, L RICHARD REGISTERED ROUTE ASSOCIATE Unavailable Unavailable KIRSCHMAN, L RICHARD REGISTERED ROUTE ASSOCIATE Unavailable Unavailable KIRSCHMAN, L RICHARD REGISTERED ROUTE ASSOCIATE Unavailable Unavailable KIRSCHMAN, L RICHARD REGISTERED ROUTE ASSOCIATE Unavailable Unavailable KIRSCHMAN, L RICHARD REGISTERED ROUTE ASSOCIATE Unavailable Unavailable KIRSCHMAN, L RICHARD REGISTERED ROUTE ASSOCIATE Unavailable Unavailable KIRSCHMAN, L RICHARD REGISTERED ROUTE ASSOCIATE Unavailable Unavailable KIRSCHMAN, L RICHARD REGISTERED ROUTE ASSOCIATE Unavailable Unavailable KIRSCHMAN, L RICHARD REGISTERED ROUTE ASSOCIATE Unavailable Unavailable KIRSCHMAN, L RICHARD REGISTERED ROUTE ASSOCIATE Unavailable Unavailable KIRSCHMAN, L RICHARD REGISTERED ROUTE ASSOCIATE Unavailable Unavailable KIRSCHMAN, L RICHARD REGISTERED ROUTE ASSOCIATE Unavailable Unavailable Luana ALMEIDA DPM Unavailable Unavailable Luana ALMEIDA DPM Unavailable Unavailable Luana ALMEIDA DPM Unavailable Unavailable Luana ALMEIDA DPM Unavailable Unavailable Luana ALMEIDA DPM Unavailable Unavailable Luana ALMEIDA DPM Unavailable Unavailable Luana ALMEIDA DPM Unavailable Unavailable Luana ALMEIDA DPM Unavailable Unavailable Luana ALMEIDA DPM Unavailable Unavailable Luana ALMEIDA DPM Unavailable Unavailable Luana ALMEIDA DPM Unavailable Unavailable Luana ALMEIDA DPM Unavailable Unavailable Luana ALMEIDA DPM Unavailable Unavailable Luana ALMEIDA DPM Unavailable Unavailable Luana ALMEIDA DPM Unavailable Unavailable Luana ALMEIDA DPM Unavailable Unavailable Luana ALMEIDA DPM Unavailable Unavailable Luana ALMEIDA DPM Unavailable Unavailable Luana ALMEIDA DPM Unavailable Unavailable Luana ALMEIDA DPM Unavailable Unavailable Luana ALMEIDA DPM Unavailable Unavailable Luana ALMEIDA DPM Unavailable Unavailable Luana ALMEIDA DPM Unavailable Unavailable Luana ALMEIDA DPM Unavailable Unavailable Luana ALMEIDA DPM Unavailable Unavailable Luana ALMEIDA DPM Unavailable Unavailable MAJAK, R RAINE DPM Unavailable Unavailable MAJAK, R RAINE DPM Unavailable Unavailable MAJAK, R RAINE DPM Unavailable Unavailable MAJAK, R RAINE DPM Unavailable Unavailable MAJAK, R RAINE DPM Unavailable Unavailable CARMINA, MAQBOOL KEVIN MD Unavailable Unavailable CARMINA, MAQBOOL KEVIN MD Unavailable Unavailable CARMINA, MAQBOOL KEVIN MD Unavailable Unavailable CARMINA, MAQBOOL KEVIN MD Unavailable Unavailable CARMINA, MAQBOOL KEVIN MD Unavailable Unavailable CARMINA, MAQBOOL KEVIN MD Unavailable Unavailable CARMINA, MAQBOOL KEVIN MD Unavailable Unavailable CARMINA, MAQBOOL KEVIN MD Unavailable Unavailable CARMINA, MAQBOOL KEVIN MD Unavailable Unavailable CARMINA, MAQBOOL KEVIN MD Unavailable Unavailable CARMINA, MAQBOOL KEVIN MD Unavailable Unavailable CARMINA, MAQBOOL KEVIN MD Unavailable Unavailable CARMINA, MAQBOOL KEVIN MD Unavailable Unavailable CARMINA, MAQBOOL KEVIN MD Unavailable Unavailable CARMINA, MAQBOOL KEVIN MD Unavailable Unavailable CARMINA, MAQBOOL KEVIN MD Unavailable Unavailable CARMINA, MAQBOOL KEVIN MD Unavailable Unavailable CARMINA, MAQBOOL KEVIN MD Unavailable Unavailable CARMINA, MAQBOOL KEVIN MD Unavailable Unavailable CARMINA, MAQBOOL KEVIN MD Unavailable Unavailable CARMINA, MAQBOOL KEVIN MD Unavailable Unavailable CARMINA, MAQBOOL KEVIN MD Unavailable Unavailable CARMINA, MAQBOOL KEVIN MD Unavailable Unavailable CARMINA, MAQBOOL KEVIN MD Unavailable Unavailable CARMINA, MAQBOOL KEVIN MD Unavailable Unavailable CARMINA, MAQBOOL KEVIN MD Unavailable Unavailable CARMINA, MAQBOOL KEVIN MD Unavailable Unavailable CARMINA, MAQBOOL KEVIN MD Unavailable Unavailable CARMINA, MAQBOOL KEVIN MD Unavailable Unavailable CARMINA, MAQBOOL KEVIN MD Unavailable Unavailable CARMINA, MAQBOOL KEVIN MD Unavailable Unavailable CARMINA, MAQBOOL KEVIN MD Unavailable Unavailable CARMINA, MAQBOOL KEVIN MD Unavailable Unavailable CARMINA, MAQBOOL KEVIN MD Unavailable Unavailable CARMINA, MAQBOOL KEVIN MD Unavailable Unavailable CARMINA, MAQBOOL KEVIN MD Unavailable Unavailable CARMINA, MAQBOOL KEVIN MD Unavailable Unavailable CARMINA, MAQBOOL KEVIN MD Unavailable Unavailable CARMINA, MAQBOOL KEVIN MD Unavailable Unavailable CARMINA, MAQBOOL KEVIN MD Unavailable Unavailable CARMINA, MAQBOOL KEVIN MD Unavailable Unavailable CARMINA, MAQBOOL KEVIN MD Unavailable Unavailable CARMINA, MAQBOOL KEVIN MD Unavailable Unavailable CARMINA, MAQBOOL KEVIN MD Unavailable Unavailable CARMINA, MAQBOOL KEVIN MD Unavailable Unavailable CARMINA, MAQBOOL KEVIN MD Unavailable Unavailable CARMINA, MAQBOOL KEVIN MD Unavailable Unavailable CARMINA, MAQBOOL KEVIN MD Unavailable Unavailable CARMINA, MAQBOOL KEVIN MD Unavailable Unavailable CARMINA, MAQBOOL KEVIN MD Unavailable Unavailable CARMINA, MAQBOOL KEVIN MD Unavailable Unavailable CARMINA, MAQBOOL KEVIN MD Unavailable Unavailable CARMINA, MAQBOOL KEVIN MD Unavailable Unavailable CARMINA, MAQBOOL KEVIN MD Unavailable Unavailable CARMINA, MAQBOOL KEVIN MD Unavailable Unavailable CARMINA, MAQBOOL KEVIN MD Unavailable Unavailable CARMINA, MAQBOOL KEVIN MD Unavailable Unavailable CARMINA, MAQBOOL KEVIN MD Unavailable Unavailable CARMINA, MAQBOOL KEVIN MD Unavailable Unavailable CARMINA, MAQBOOL KEVIN MD Unavailable Unavailable CARMINA, MAQBOOL KEVIN MD Unavailable Unavailable CARMINA, MAQBOOL KEVIN MD Unavailable Unavailable CARMINA, MAQBOOL KEVIN MD Unavailable Unavailable CARMINA, MAQBOOL KEVIN MD Unavailable Unavailable CARMINA, MAQBOOL KEVIN MD Unavailable Unavailable CARMINA, MAQBOOL KEVIN MD Unavailable Unavailable CARMINA, MAQBOOL KEVIN MD Unavailable Unavailable CARMINA, MAQBOOL KEVIN MD Unavailable Unavailable CARMINA, MAQBOOL KEVIN MD Unavailable Unavailable CARMINA, MAQBOOL KEVIN MD Unavailable Unavailable CARMINA, MAQBOOL KEVIN MD Unavailable Unavailable CARMINA, MAQBOOL KEVIN MD Unavailable Unavailable CARMINA, MAQBOOL KEVIN MD Unavailable Unavailable CARMINA, ESTEVAN BROWN MD Unavailable Unavailable CARMINA, ESTEVAN BROWN MD Unavailable Unavailable CARMINA, ESTEVAN BROWN MD Unavailable Unavailable CARMINA, ESTEVAN BROWN MD Unavailable Unavailable CARMINA, ESTEVAN BROWN MD Unavailable Unavailable Alleghany, Citlalli SKIFF OPERATOR Unavailable Unavailable Alleghany, Citlalli SKIFF OPERATOR Unavailable Unavailable Alleghany, Citlalli SKIFF OPERATOR Unavailable Unavailable Alleghany, Citlalli SKIFF OPERATOR Unavailable Unavailable Alleghany, Citlalli SKIFF OPERATOR Unavailable Unavailable Alleghany, Citlalli SKIFF OPERATOR Unavailable Unavailable Alleghany, Citlalli SKIFF OPERATOR Unavailable Unavailable Alleghany, Citlalli SKIFF OPERATOR Unavailable Unavailable Alleghany, Citlalli SKIFF OPERATOR Unavailable Unavailable Alleghany, Citlalli SKIFF OPERATOR Unavailable Unavailable Alleghany, Citlalli SKIFF OPERATOR Unavailable Unavailable Alleghany, Citlalli SKIFF OPERATOR Unavailable Unavailable Alleghany, Citlalli SKIFF OPERATOR Unavailable Unavailable Alleghany, Citlalli SKIFF OPERATOR Unavailable Unavailable Alleghany, Citlalli SKIFF OPERATOR Unavailable Unavailable Alleghany, Citlalli SKIFF OPERATOR Unavailable Unavailable Alleghany, Citlalli SKIFF OPERATOR Unavailable Unavailable Alleghany, Citlalli SKIFF OPERATOR Unavailable Unavailable Alleghany, Citlalli SKIFF OPERATOR Unavailable Unavailable Alleghany, Citlalli SKIFF OPERATOR Unavailable Unavailable Alleghany, Citlalli SKIFF OPERATOR Unavailable Unavailable Alleghany, Citlalli SKIFF OPERATOR Unavailable Unavailable Alleghany, Citlalli SKIFF OPERATOR Unavailable Unavailable Alleghany, Citlalli SKIFF OPERATOR Unavailable Unavailable Alleghany, Citlalli SKIFF OPERATOR Unavailable Unavailable Alleghany, Citlalli SKIFF OPERATOR Unavailable Unavailable Alleghany, Citlalli SKIFF OPERATOR Unavailable Unavailable Alleghany, Citlalli SKIFF OPERATOR Unavailable Unavailable Alleghany, Citlalli SKIFF OPERATOR Unavailable Unavailable Alleghany, Citlalli SKIFF OPERATOR Unavailable Unavailable Alleghany, Citlalli SKIFF OPERATOR Unavailable Unavailable Alleghany, Citlalli SKIFF OPERATOR Unavailable Unavailable Alleghany, Citlalli SKIFF OPERATOR Unavailable Unavailable Alleghany, Citlalli SKIFF OPERATOR Unavailable Unavailable AlleghanyAriella SKIFF OPERATOR Unavailable Unavailable AlleghanyAriellaCitlalli SKIFF OPERATOR Unavailable Unavailable TONTARSKI, G AYUSH PA Unavailable Unavailable TONTARSKI, G AYUSH PA Unavailable Unavailable TONTARSMUMTAZ, G AYUSH PA Unavailable Unavailable TONTARSKI, G AYUSH PA Unavailable Unavailable TONTARSKI, G AYUSH PA Unavailable Unavailable TONTARSKI, G AYUSH PA Unavailable Unavailable TONTARSKI, G AYUSH PA Unavailable Unavailable TONTARSKI, G AYUSH PA Unavailable Unavailable TONTARSKI, G AYUSH PA Unavailable Unavailable TONTARSKI, G AYUSH PA Unavailable Unavailable TONTARSMUMTAZ, G AYUSH PA Unavailable Unavailable TONTARSMUMTAZ, G AYUSH PA Unavailable Unavailable TONTARSMUMTAZ, G AYUSH PA Unavailable Unavailable TONTARSMUMTAZ, G AYUSH PA Unavailable Unavailable TONTARSKI, G AYUSH PA Unavailable Unavailable TONTARSMUMTAZ, G AYUSH PA Unavailable Unavailable TONTARSMUMTAZ, G AYUSH PA Unavailable Unavailable TONTARSMUMTAZ, G AYUSH PA Unavailable Unavailable TONTARSKI, G AYUSH PA Unavailable Unavailable TONTARSMUMTAZ, G AYUSH PA Unavailable Unavailable TONTARSMUMTAZ, G AYUSH PA Unavailable Unavailable TONTARSMUMTAZ, G AYUSH PA Unavailable Unavailable TONTARSMUMTAZ, G AYUSH PA Unavailable Unavailable TONTARSMUMTAZ, G AYUSH PA Unavailable Unavailable TONTARSMUMTAZ, G AYUSH PA Unavailable Unavailable TONTARSMUMTAZ, G AYUSH PA Unavailable Unavailable TONTARSMUMTAZ, G AYUSH PA Unavailable Unavailable TONTARSMUMTAZ, G AYUSH PA Unavailable Unavailable TONTARSMUMTAZ, G AYUSH PA Unavailable Unavailable TONTARSMUMTAZ, G AYUSH PA Unavailable Unavailable TONTARSKI, G AYUSH PA Unavailable Unavailable TONTARSMUMTAZ, G AYUSH PA Unavailable Unavailable TONTARSMUMTAZ, G AYUSH PA Unavailable Unavailable TONTARSMUMTAZ, G AYUSH PA Unavailable Unavailable TONTARSMUMTAZ, G AYUSH PA Unavailable Unavailable TONTARSMUMTAZ, G AYUSH PA Unavailable Unavailable TONTARSMUMTAZ, G AYUSH PA Unavailable Unavailable TONTARSMUMTAZ, G AYUSH PA Unavailable Unavailable TONTARSMUMTAZ, G AYUSH PA Unavailable Unavailable TONTARSKI, G AYUSH PA Unavailable Unavailable TONTARSKI, G AYUSH PA Unavailable Unavailable TONTARSKI, G AYUSH PA Unavailable Unavailable TONTARSKI, G AYUSH PA Unavailable Unavailable TONTARSKI, G AYUSH PA Unavailable Unavailable TONTARSKI, G AYUSH PA Unavailable Unavailable TONTARSKI, G AYUSH PA Unavailable Unavailable TONTARSKI, G AYUSH PA Unavailable Unavailable Lockerbie, S [place] SKIFF OPERATOR-C Unavailable Unavailable Lockerbie, S [place] SKIFF OPERATOR-C Unavailable Unavailable Lockerbie, S [place] SKIFF OPERATOR-C Unavailable Unavailable Lockerbie, S [place] SKIFF OPERATOR-C Unavailable Unavailable Lockerbie, S [place] SKIFF OPERATOR-C Unavailable Unavailable Lockerbie, S [place] SKIFF OPERATOR-C Unavailable Unavailable Lockerbie, S [place] SKIFF OPERATOR-C Unavailable Unavailable Lockerbie, S [place] SKIFF OPERATOR-C Unavailable Unavailable Lockerbie, S [place] SKIFF OPERATOR-C Unavailable Unavailable Lockerbie, S [place] SKIFF OPERATOR-C Unavailable Unavailable Lockerbie, S Vriginia SKIFF OPERATOR-C Unavailable Unavailable Lockerbie, S [place] SKIFF OPERATOR-C Unavailable Unavailable Lockerbie, S [place] SKIFF OPERATOR-C Unavailable Unavailable Lockerbie, S [place] SKIFF OPERATOR-C Unavailable Unavailable Lockerbie, S [place] SKIFF OPERATOR-C Unavailable Unavailable Lockerbie, S [place] SKIFF OPERATOR-C Unavailable Unavailable Lockerbie, S [place] SKIFF OPERATOR-C Unavailable Unavailable Lockerbie, S [place] SKIFF OPERATOR-C Unavailable Unavailable Lockerbie, S [place] SKIFF OPERATOR-C Unavailable Unavailable Lockerbie, S [place] SKIFF OPERATOR-C Unavailable Unavailable Lockerbie, S Virgniia SKIFF OPERATOR-C Unavailable Unavailable Lockerbie, S [place] SKIFF OPERATOR-C Unavailable Unavailable Lockerbie, S [place] SKIFF OPERATOR-C Unavailable Unavailable Lockerbie, S [place] SKIFF OPERATOR-C Unavailable Unavailable ALFRED, A SARAH DO Unavailable Unavailable ALFRED, A SARAH DO Unavailable Unavailable ALFRED, A SARAH DO Unavailable Unavailable ALFRED, A SARAH DO Unavailable Unavailable ALFRED, A SARAH DO Unavailable Unavailable ALFRED, A SARAH DO Unavailable Unavailable ALFRED, A SARAH DO Unavailable Unavailable ALFRED, A SARAH DO Unavailable Unavailable ALFRED, A SARAH DO Unavailable Unavailable ALFRED, A SARAH DO Unavailable Unavailable ALFRED, A SARAH DO Unavailable Unavailable ALFRED, A SARAH DO Unavailable Unavailable ALFRED, A SARAH DO Unavailable Unavailable ALFRED, A SARAH DO Unavailable Unavailable ALFRED, A SARAH DO Unavailable Unavailable ALFRED, A SARAH DO Unavailable Unavailable ALRFED, A SARAH DO Unavailable Unavailable ALFRED, A SARAH DO Unavailable Unavailable ALFRED, A SARAH DO Unavailable Unavailable ALFRED, A SARAH DO Unavailable Unavailable ALFRED, A SARAH DO Unavailable Unavailable ALFRED, A SARAH DO Unavailable Unavailable CARMINA, MAQBOOL KEVIN MD Unavailable Unavailable CARMINA, MAQBOOL KEVIN MD Unavailable Unavailable CARMINA, MAQBOOL KEVIN MD Unavailable Unavailable CARMINA, MAQBOOL KEVIN MD Unavailable Unavailable CARMINA, MAQBOOL KEVIN MD Unavailable Unavailable CARMINA, MAQBOOL KEVIN MD Unavailable Unavailable CARMINA, MAQBOOL KEVIN MD Unavailable Unavailable CARMINA, MAQBOOL KEVIN MD Unavailable Unavailable CARMINA, MAQBOOL KEVIN MD Unavailable Unavailable CARMINA, MAQBOOL KEVIN MD Unavailable Unavailable CARMINA, MAQBOOL KEVIN MD Unavailable Unavailable CARMINA, MAQBOOL KEVIN MD Unavailable Unavailable CARMINA, MAQBOOL KEVIN MD Unavailable Unavailable CARMINA, MAQBOOL KEVIN MD Unavailable Unavailable CARMINA, MAQBOOL KEVIN MD Unavailable Unavailable CARMINA, MAQBOOL KEVIN MD Unavailable Unavailable CARMINA, MAQBOOL KEVIN MD Unavailable Unavailable CARMINA, MAQBOOL KEVIN MD Unavailable Unavailable CARMINA, MAQBOOL KEVIN MD Unavailable Unavailable CARMINA, MAQBOOL KEVIN MD Unavailable Unavailable CARMINA, MAQBOOL KEVIN MD Unavailable Unavailable CARMINA, MAQBOOL KEVIN MD Unavailable Unavailable CARMINA, MAQBOOL KEVIN MD Unavailable Unavailable CARMINA, MAQBOOL KEVIN MD Unavailable Unavailable CARMINA, MAQBOOL KEVIN MD Unavailable Unavailable CARMINA, MAQBOOL KEVIN MD Unavailable Unavailable CARMINA, MAQBOOL KEVIN MD Unavailable Unavailable CARMINA, MAQBOOL KEVIN MD Unavailable Unavailable CARMINA, MAQBOOL KEVIN MD Unavailable Unavailable CARMINA, MAQBOOL KEVIN MD Unavailable Unavailable CARMINA, MAQBOOL KEVIN MD Unavailable Unavailable CARMINA, MAQBOOL KEVIN MD Unavailable Unavailable CARMINA, MAQBOOL KEVIN MD Unavailable Unavailable CARMINA, MAQBOOL KEVIN MD Unavailable Unavailable CARMINA, MAQBOOL KEVIN MD Unavailable Unavailable CARMINA, MAQBOOL KEVIN MD Unavailable Unavailable CARMINA, MAQBOOL KEVIN MD Unavailable Unavailable CARMINA, MAQBOOL KEVIN MD Unavailable Unavailable CARMINA, MAQBOOL KEVIN MD Unavailable Unavailable CARMINA, MAQBOOL KEVIN MD Unavailable Unavailable CARMINA, MAQBOOL KEVIN MD Unavailable Unavailable CARMINA, MAQBOOL KEVIN MD Unavailable Unavailable CARMINA, MAQBOOL KEVIN MD Unavailable Unavailable CARMINA, MAQBOOL KEVIN MD Unavailable Unavailable CARMINA, MAQBOOL KEVIN MD Unavailable Unavailable CARMINA, MAQBOOL KEVIN MD Unavailable Unavailable CARMINA, MAQBOOL KEVIN MD Unavailable Unavailable CARMINA, MAQBOOL KEVIN MD Unavailable Unavailable CARMINA, MAQBOOL KEVIN MD Unavailable Unavailable CARMINA, MAQBOOL KEVIN MD Unavailable Unavailable CARMINA, MAQBOOL KEVIN MD Unavailable Unavailable CARMINA, MAQBOOL KEVIN MD Unavailable Unavailable CARMINA, MAQBOOL KEVIN MD Unavailable Unavailable CARMINA, MAQBOOL KEVIN MD Unavailable Unavailable CARMINA, MAQBOOL KEVIN MD Unavailable Unavailable CARMINA, MAQBOOL KEVIN MD Unavailable Unavailable CARMINA, MAQBOOL KEVIN MD Unavailable Unavailable CARMINA, MAQBOOL KEVIN MD Unavailable Unavailable CARMINA, MAQBOOL KEVIN MD Unavailable Unavailable CARMINA, MAQBOOL KEVIN MD Unavailable Unavailable CARMINA, MAQBOOL KEVIN MD Unavailable Unavailable CARMINA, MAQBOOL KEVIN MD Unavailable Unavailable CARMINA, MAQBOOL KEVIN MD Unavailable Unavailable CARMINA, MAQBOOL KEVIN MD Unavailable Unavailable CARMINA, MAQBOOL KEVIN MD Unavailable Unavailable CARMINA, MAQBOOL KEVIN MD Unavailable Unavailable CARMINA, MAQBOOL KEVIN MD Unavailable Unavailable CARMINA, MAQBOOL KEVIN MD Unavailable Unavailable CARMINA, MAQBOOL KEVIN MD Unavailable Unavailable CARMINA, MAQBOOL KEVIN MD Unavailable Unavailable CARMINA, MAQBOOL KEVIN MD Unavailable Unavailable CARMINA, MAQBOOL KEVIN MD Unavailable Unavailable CARMINA, MAQBOOL KEVIN MD Unavailable Unavailable CARMINA, MAQBOOL KEVIN MD Unavailable Unavailable CARMINA, MAQBOOL KEVIN MD Unavailable Unavailable CARMINA, MAQBOOL KEVIN MD Unavailable Unavailable CARMINA, MAQBOOL KEVIN MD Unavailable Unavailable CARMINA, MAQBOOL KEVIN MD Unavailable Unavailable Re-disclosure Warning The records that you are about to access may contain information from federally-assisted alcohol or drug abuse programs. If such information is present, then the following federally mandated warning applies: This information has been disclosed to you from records protected by federal confidentiality rules (42 CFR part 2). The federal rules prohibit you from making any further disclosure of this information unless further disclosure is expressly permitted by the written consent of the person to whom it pertains or as otherwise permitted by 42 CFR part 2. A general authorization for the release of medical or other information is NOT sufficient for this purpose. The Federal rules restrict any use of the information to criminally investigate or prosecute any alcohol or drug abuse patient.The records that you are about to access may contain highly sensitive health information, the redisclosure of which is protected by Article 27-F of the [facility] Public Health law. If you continue you may have access to information: Regarding HIV / AIDS; Provided by facilities licensed or operated by the [facility] Office of Mental Health; or Provided by the [facility] Office for People With Developmental Disabilities. If such information is present, then the following [facility] mandated warning applies: This information has been disclosed to you from confidential records which are protected by state law. State law prohibits you from making any further disclosure of this information without the specific written consent of the person to whom it pertains, or as otherwise permitted by law. Any unauthorized further disclosure in violation of state law may result in a fine or residential sentence or both. A general authorization for the release of medical or other information is NOT sufficient authorization for further disc losure. Allergies and Adverse Reactions Type Description Substance Reaction Status Data Source(s ) No Known Environmental Allergies No Known Environmental [facility] Drug allergy lactose intolerant lactose intolerant [facility] Family History Family Member Name Family Member Gender Family Member Status Date o f Status Description Data Source(s) Unknown Unknown Problem [facility] ([facility] Unknown Unknown Problem [facility] ([facility], ) Encounters Encounter Providers Location Date Indications Data Source(s ) Outpatient Attender: Katy Mosquera [facility] Main Office 11/07/2020 11:15:00 AM EDT [facility] Outpatient Attender: AYUSH WAY [facility] 10/09/2020 10:30:00 AM EDT [facility] (Kevin Baer MD) Outpatient Attender: RAINE ALMEIDA [facility] 08/10 01:45:00 PM EDT [facility] ([facility] <td ID="encounterTypeDescriptionID0">TRI AGE NON URGENT</td><td>Sarah Conde DO</td><td>Heriberto Ovalle MD [facility]</td><td>08/22/2020</td><td>8:03AM</td><td>8:48AM</td><td><content ID="encounterDiagnosisID0-0">Blepharitis Squamous</content>, <content ID="encounterDiagnosisID0-1">Dry Eye Syndrome</content>, <content ID="encounterDiagnosisID0-2">Ectropion</content>, <content ID="encounterDiagnosisID0-3">Epiphora</content></td>Outpatient Attender: SARAH Miller MD [facility] 08/22/2020 08:03:00 AM EDT - 08/22/2020 08:48:00 AM EDT EpiphoraEctropionBlepharitis SquamousEpiphoraEctropionBlepharitis SquamousDry Eye SyndromeDry Eye Syndrome [place] (Heriberto Jaramillo MD 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 Dry Eye Syndrome Dry Eye Syndrome Outpatient Attender: Katy Mosquera [facility] Main Office 07/11/2020 10:45:00 AM EDT [facility] ([facility]) Outpatient Attender: Virginia Stackkal [facility] Main Office 07/05/2020 03:30:00 PM EDT [facility] ([facility]) Outpatient Attender: KEVIN BAER MDConsultant: RICHARDZACHARY PUGH REGISTERED ROUTE ASSOCIATE 06/15/2020 11:50:00 AM EDT - 06/15/2020 12:50:00 PM EDT [facility] Outpatient Attender: KEVIN BAER MD [facility] 06/15 11:00:00 AM EDT [facility] (Kevin Baer MD) Outpatient Attender: AYUSH WAY [facility] 06/14/2020 08:45:00 AM EDT [facility] (Kevin Baer MD) Outpatient Attender: RAINE ALMEIDA DPM Mobile Office 04/11 01:45:00 PM EDT [facility] ([facility] Outpatient Attender: KEVIN BAER MD [facility] 04/05 09:45:00 AM EST [facility] (Kevin Baer MD) Outpatient Attender: Katy Mosquera [facility] Main Office 02/21/2020 08:00:00 AM EST [facility] ([facility] Outpatient Attender: KEVIN BAER MD [facility] 02/01 10:15:00 AM EST [facility] (Kevin Baer MD) Outpatient Attender: AYUSH WAY [facility] 01/17/2020 07:30:00 AM EST [facility] (Kevin Baer MD) Outpatient Attender: RAINE ALMEIDA [facility] Office 12/12 12:45:00 PM EST [facility] ([facility] Outpatient Attender: KEVIN BAER MD Medical [facility] 12/30 09:00:00 AM EST [facility] (Kevin Baer MD) Outpatient Attender: KEVIN BAER MDConsultant: RICHARD SHARMADYAN REGISTERED ROUTE ASSOCIATE 12/15/2019 11:06:00 AM EST - 12/15/2019 12:06:00 PM [facility] Outpatient Attender: KEVIN BAER MD [facility] 12/14 10:00:00 AM EST [facility] (Kevin Baer MD) Outpatient<td ID="encounterTypeDescripti onID1">5 Month Follow-Up</td><td>Sarah Conde DO</td><td>Heriberto Ovalle MD 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) Trichiasis of Eyelid Trichiasis of Eyelid Posterior Capsule Opacification Eccentri c Capsule Both Eyes Dry Eye Syndrome Vitreous Disorders Degeneration Pseudophakia Posterior Capsule Opacification Eccentri c Capsule Both Eyes Dry Eye Syndrome Vitreous Disorders Degeneration Pseudophakia Outpatient Attender: KEVIN BAER MD [facility] 11/11 10:30:00 AM EDT [facility] (Kevin Baer MD) Outpatient Attender: KEVIN BAER MDConsultant: RICHARD WHITAKER KEATON REGISTERED ROUTE ASSOCIATE 10/26/2019 03:29:00 PM EDT - 10/26/2019 04:29:00 PM EDT [facility] Outpatient Attender: [facility] 10/05/2019 10:00:00 AM EDT [facility] (Kevin Baer MD) Immunizations Vaccine Date Status Description Data Source(s) COVID-19 VACCINE Moderna 04/10/2020 12:00:00 AM EST completed [facility] Vaccine Series Complete: YESThis Data wa s Submitted to [facility] Via [employer]. COVID-19 VACCINE, MRNA-1273, LNP-S (MODERNA)/PF 04/10/2020 1 2:00:00 AM EST completed [facility] COVID-19 VACCINE, MRNA-1273, LNP-S (MODERNA)/PF 03/11/2020 1 2:00:00 AM EST completed [facility] COVID-19 VACCINE Moderna 03/10/2020 12:00:00 AM EST completed [facility] Vaccine Series Complete: NOThis Data was Submitted to [facility] Via [employer]. INFLUENZA VACCINE QUADRIVALENT (65 YR UP)/MF59 C.1/PF 10/23/2019 12:00:00 AM EDT completed [facility] Medications Medication Brand Name Start Date Product Form Dose Route Admi nistrative Instructions Pharmacy Instructions Status Indications Reaction Description Data Source(s) Fluticasone propionate 0.05 MG/ACTUAT Metered Dose [facility] [place] 50 mcg/actuation FLUTICASONE PROPIONATE 11/21/2020 12:00:00 AM EDT spray,suspension 16 SPRAY 2 SPRAYS IN EACH NOSTRIL ONCE DAILY SPRAY 2 SPRAYS IN EACH NOSTRIL ONCE DAILY SOLD: 11/24/2020 [facility] 30 ACTUAT fluticasone furoate 0.1 MG/ACT UAT / umeclidinium 0.0625 MG/ACTUAT / vilanterol 0.025 MG/ACTUAT Dry Powder Inhaler [Trelegy] 100-62.5-25 mcg FLUTICASONE/UMECLIDIN/VILANTER 11/21/2020 12:00:00 AM EDT blister with device 60 INHALE 1 PUFF BY MOUTH ONCE DAILY INHALE 1 PUFF BY MOUTH ONCE DAILY SOLD: 11/24/2020 [facility] 240 mcg/0.7 mL 11/10/2020 12:00:00 AM EDT syringe 0 INJECT DIRECTED INJECT DIRECTED SOLD: 11/10/2020 [facility] Fluticasone propionate 0.05 MG/ACTUAT Metered Dose [facility] [place] 50 mcg/actuation FLUTICASONE PROPIONATE 10/19/2020 12:00:00 AM EDT spray,suspension 16 SPRAY 2 SPRAYS IN EACH NOSTRIL EACH DAY SPRAY 2 SPRAYS IN EACH NOSTRIL EACH DAY SOLD: 10/22/2020 [facility] Dexamethasone 1 MG/ML / Tobramycin 3 MG/ ML Ophthalmic Suspension Tobramycin- Dexamethasone 0.3-0.1% Ophthalmic Suspension Tobramycin-Dexamethasone 0.3-0.1% Ophthalmic Suspension 08/22/2020 12:00:00 AM EDT 1 aborted dexamethasone 1 MG/ML / tobramycin 3 MG/ML Ophthalmic Suspension [place] (Heriberto Jaramillo MD [facility]) 50 mcg/actuation 08/09/2020 12:00:00 AM EDT spray,suspension 16 SPRAY 2 SPRAYS IN EACH NOSTRIL DAILY SPRAY 2 SPRAYS IN EACH NOSTRIL DAILY SOLD: 08/11/2020 [facility] 0.3-0.1 % 07/31/2020 12:00:00 AM EDT drops,suspension 5 INSTILL 1 DROP IN EACH EYE FOUR TIMES A DAY INSTILL 1 DROP IN EACH EYE FOUR TIMES A DAY SOLD: 08/01/2020 [facility] 15 mg 07/20/2020 12:00:00 AM EDT tablet 15 TAKE ONE-HALF TABLET BY MOUTH EVERY DAY AT BEDTIME MAXIMUM DAILY DOSE = 1/2 TABLET TAKE ONE-HALF TABLET BY MOUTH EVERY DAY AT BEDTIME MAXIMUM DAILY DOSE = 1/2 TABLET SOLD: 07/21/2020 [facility] 15 mg 07/20/2020 12:00:00 AM EDT tablet 15 TAKE ONE-HALF TABLET BY MOUTH EVERY DAY AT BEDTIME MAXIMUM DAILY DOSE = 1/2 TABLET TAKE ONE-HALF TABLET BY MOUTH EVERY DAY AT BEDTIME MAXIMUM DAILY DOSE = 1/2 TABLET SOLD: 09/01/2020 [facility] 50 mcg/actuation 07/04/2020 12:00:00 AM EDT spray,suspension 16 SPRAY 2 SPRAYS IN EACH NOSTRIL ONCE DAILY SPRAY 2 SPRAYS IN EACH NOSTRIL ONCE DAILY SOLD: 07/04/2020 [facility] 0.3-0.1 % 06/28/2020 12:00:00 AM EDT drops,suspension 5 INSTILL 1 DROP INTO EACH EYE FOUR TIMES A DAY INSTILL 1 DROP INTO EACH EYE FOUR TIMES A DAY SOLD: 06/29/2020 [facility] NITROFURANTOIN, MACROCRYSTALS 25 MG / Ni trofurantoin, Monohydrate 75 MG Oral Capsule [Macrobid] Macrobid 06/20/2020 12:00:00 AM EDT ORAL active [facility] (Kevin Baer MD) NITROFURANTOIN, MACROCRYSTALS 25 MG / Ni trofurantoin, Monohydrate 75 MG Oral Capsule 100 mg NITROFURANTOIN MONOHYD/M-CRYST 06/20/2020 12:00:00 AM EDT ca psule 20 TAKE ONE CAPSULE BY MOUTH TWICE A DAY FOR 10 DAYS TAKE ONE CAPSULE BY MOUTH TWICE A DAY FOR 10 DAYS SOLD: 06/21/2020 [facility] 50 mcg/actuation 05/26/2020 12:00:00 AM EDT spray,suspension 16 SPRAY 2 SPRAYS INTO EACH NOSTRIL ONCE DAILY SPRAY 2 SPRAYS INTO EACH NOSTRIL ONCE DAILY SOLD: 05/27/2020 [facility] Flonase Allergy Relief Flonase Allergy Relief 04/05/2020 12:00:[address] active [facility] (Kevin Baer MD) 50 mg 04/05/2020 12:00:00 AM EST tablet 15 TAKE ONE-HALF TABLET BY MOUTH EVERY DAY TAKE ONE-HALF TABLET BY MOUTH EVERY DAY SOLD: 04/07/2020 [facility] 50 mcg/actuation 04/05/2020 12:00:00 AM EST spray,suspension 16 SPRAY 2 SPRAYS IN EACH NOSTRIL ONCE DAILY SPRAY 2 SPRAYS IN EACH NOSTRIL ONCE DAILY SOLD: 04/07/2020 [facility] 50 mcg/actuation 02/15/2020 12:00:00 AM EST spray,suspension 16 SPRAY 2 SPRAYS IN EACH NOSTRIL ONCE A DAY SPRAY 2 SPRAYS IN EACH NOSTRIL ONCE A DAY SOLD: 02/16/2020 [facility] Fluticasone propionate 0.05 MG/ACTUAT Metered Dose [facility]elius [facility] [place] 50 mcg/actuation FLUTICASONE PROPIONATE 02/15/2020 12:00:00 AM EST spray,suspension 16 SPRAY 2 SPRAYS IN EACH NOSTRIL ONCE A DAY SPRAY 2 SPRAYS IN EACH NOSTRIL ONCE A DAY SOLD: 09/27/2020 [facility] Trazodone Hydrochloride 50 MG Oral Tablet Trazodone HCL 02/02/2020 12:00:00 AM EST ORAL active [facility] (Suzi Baer MD) docosahexaenoic acid 120 MG / Eicosapentaenoic Acid 18 0 MG Oral Capsule Fish Oil 02/02/2020 12:00:00 AM EST active [facility] (Kevin Baer MD) Cholecalciferol 1000 UNT Oral Capsule Vitamin D-3 02/02/2020 12:00 :00 AM EST active [facility] (Kevin Baer MD) 50 mg 02/02/2020 12:00:00 AM EST tablet 15 TAKE 1/2 TABLET BY MOUTH EVERY DAY TAKE 1/2 TABLET BY MOUTH EVERY DAY SOLD: 02/02/2020 [facility] ferrous sulfate 325 MG Oral Tablet Ferrous Sulfate 02/02/2020 12:00 :00 AM EST active [facility] (Kevin Baer MD) Biotin 5 MG Oral Capsule Biotin 5000 02/02/2020 12:00:00 AM EST ORAL active [facility] (Kevin Baer MD) 50 mcg/actuation 01/01/2020 12:00:00 AM EST spray,suspension 16 SPRAY 2 SPRAYS IN EACH NOSTRIL ONCE DAILY SPRAY 2 SPRAYS IN EACH NOSTRIL ONCE DAILY SOLD: 01/01/2020 [facility] Flonase Allergy Relief Flonase Allergy Relief 12/31/2019 12:00:[address] completed [facility] (Kevin Baer MD) Fexofenadine hydrochloride 180 MG Oral Tablet Nilda Allerg y 12/31/2019 12:00:00 AM EST completed [facility] (Kevin Baer MD) 250 mg 12/26/2019 12:00:00 AM EST tablet 5 TAKE ONE TABLET BY MOUTH EVERY DAY FOR 5 DAYS TAKE ONE TABLET BY MOUTH EVERY DAY FOR 5 DAYS SOLD: 12/27/2019 [facility] 40 mg 12/16/2019 12:00:00 AM EST tablet 90 TAKE ONE TABLET BY MOUTH EVERY DAY TAKE ONE TABLET BY MOUTH EVERY DAY SOLD: 12/17/2019 [facility] 40 mg 11/26/2019 12:00:00 AM EDT tablet 30 TAKE ONE TABLET BY MOUTH EVERY DAY TAKE ONE TABLET BY MOUTH EVERY DAY SOLD: 01/01/2020 [facility] 10 mEq 11/26/2019 12:00:00 AM EDT capsule, extended relea se 60 TAKE TWO CAPSULES BY MOUTH EVERY DAY WITH FOOD TAKE TWO CAPSULES BY MOUTH EVERY DAY WIT H FOOD SOLD: 01/01/2020 [facility] 40 mg 11/26/2019 12:00:00 AM EDT tablet 30 TAKE ONE TABLET BY MOUTH EVERY DAY TAKE ONE TABLET BY MOUTH EVERY DAY SOLD: 11/29/2019 [facility] 10 mEq 11/26/2019 12:00:00 AM EDT capsule, extended relea se 60 TAKE TWO CAPSULES BY MOUTH EVERY DAY WITH FOOD TAKE TWO CAPSULES BY MOUTH EVERY DAY WIT H FOOD SOLD: 11/29/2019 [facility] Technetium TC 99M Sestamibi 11/10/2019 12:00:00 AM EDT completed [facility] (Kevin Baer MD) Medication administered onsite Lexiscan 11/10/2019 12:00:00 AM EDT completed [facility] (Kevin Baer MD) Medication administered onsite 10 mEq 10/28/2019 12:00:00 AM EDT capsule, extended relea se 60 TAKE TWO CAPSULES BY MOUTH EVERY DAY WITH FOOD TAKE TWO CAPSULES BY MOUTH EVERY DAY WIT H FOOD SOLD: 10/29/2019 [facility] 40 mg 10/28/2019 12:00:00 AM EDT tablet 30 TAKE ONE TABLET BY MOUTH EVERY DAY TAKE ONE TABLET BY MOUTH EVERY DAY SOLD: 10/29/2019 [facility] 40 mg 10/25/2019 12:00:00 AM EDT tablet,delayed release (DR/EC) 90 TAKE ONE TABLET BY MOUTH EVERY DAY TAKE ONE TABLET BY MOUTH EVERY DAY SOLD: 10/26/2019 [facility] Insurance Providers Payer name Policy type / Coverage type Policy ID Covered republican ID Covered republican's relationship to patricia Policy Patricia Plan Information [facility] Part B [id number] Self [id number] [facility] Part B [id number] Self [id number] BS [place] [facility] FEDERAL [id number] SP [id number] [employer]CE[employer] BCBS [id number] Poonam [id number] EXCELL[employer] BCBS [id number] Poonam [id number] MEDICARE [id number] P[place]am [id number] A MEDICARE [id number] SP [id number] MEDICARE [id number] SP [id number] A [facility] [employer] [employer] [id number] SP [id number] EXCELLUS BC-BS PPO [id number] SP [id number] Medicare Medicare Primary [id number] Self [id number] [facility] Part B [id number] Self [id number] Medicare Medicare Primary [id number] Self [id number] Medicare Medicare Primary [id number] Self [id number] Medicare Medicare Primary [id number] Self [id number] [place] Primary [id number] Self [id number] [place] Medicare Primary [id number] Self [id number] [place] Medicare Primary [id number] Self [id number] [place] Medicare Primary [id number] Self [id number] Medicare [place]/[facility] Medicare Primary [id number] Self [id number] Medicare Medicare Primary [id number] Self [id number] [facility] B [id number] S [id number] [facility] B [id number] S [id number] MEDICARE -O/P [id number] 18 [id number] Medicare Medicare Primary [id number] Self [id number] [employer] BC-BS PPO [id number] SP [id number] MEDICARE [id number] SP [id number] A Medicare Medicare Primary [id number] Self [id number] MEDICARE [id number] SP [id number] A BS Federal Medigap Part B [id number] Self [id number] Medicare Medicare Primary [id number] Self MEDICARE [id number] SP [id number] A [employer] BCBS FEDERAL [id number] SP [id number] [facility] FEDERAL -CLINIC [id number] 18 [id number] MEDICARE PART A -CLINIC [id number] 18 [id number] A [id number] BCBS of [facility] Other 0 [id number] Self 0 Medicare Part B [facility] Other 0 [id number] Self 0 BCBS of [facility] Other 0 [id number] Self 0 Medicare Part B [facility] Other 0 [id number] Self 0 MEDICARE PART A -O/P [id number] 18 [id number] [facility] FEDERAL -O/P [id number] 18 [id number] MEDICARE PART A -O/P [id number] 18 [id number] MEDICARE C [id number] S [id number] BC BS [facility] FEDERAL B [id number] S [id number] MEDICARE C [id number] S [id number] A Problems, Conditions, and Diagnoses Code Display Name Description Problem Type Effective Dates Data Source(s) E8342 Hypomagnesemia Hypomagnesemia Diagnosis 06/15/2020 11:50: 00 AM [facility] N390 Urinary tract infection, site not specif ied Urinary tract infection, site not specified Diagnosis 06/15/2020 11:50:00 AM [facility] E039 Hypothyroidism, unspecified Hypothyroidism, unspecifie d Diagnosis 06/15/2020 11:50:00 AM [facility] D649 Anemia, unspecified Anemia, unspecified Diagnosis 0 06/15/2020 11:50:00 AM [facility] E119 Type 2 diabetes mellitus without complic ations Type 2 diabetes mellitus without complications Diagnosis 06/15/2020 11:50:00 AM EDT [facility] E785 Hyperlipidemia, unspecified Hyperlipidemia, unspecifie d Diagnosis 06/15/2020 11:50:00 AM [facility] K7689 Other specified diseases of liver Other specifie d diseases of liver Diagnosis 12/15/2019 11:06:00 AM [facility] J189 Pneumonia, unspecified organism Pneumonia, unspecified organism Diagnosis 12/15/2019 11:06:00 AM [facility] J440 Chronic obstructive pulmonar y disease with (acute) lower respiratory infection Chronic obstructive pulmonary disease wi th (acute) lower respiratory infection Diagnosis 12/15/2019 11:06:00 AM [facility] M109 Gout, unspecified Gout, unspecified Diagnosis 10/26/2019 03:29:00 PM EDT [facility] R0600 Dyspnea, unspecified Dyspnea, unspecified Diagnosis 10/26/2019 03:29:00 PM EDT [facility] 375.21 Epiphora Epiphora Problem 08/22/2020 12:00:00 AM ED T [facility] (Heriberto Jaramillo MD 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) 375.21 Epiphora Epiphora Problem 08/22/2020 12:00:00 AM ED T [facility] (Heriberto Jaramillo MD 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) Surgeries/Procedures Procedure Description Date Indications Data Source(s) DESTRUCTION BENIGN LESIONS UP TO 14 11/07/2020 12:00:0 0 AM EDT [facility] ([facility]) OFFICE OUTPATIENT VISIT 25 MINUTES 11/07/2020 12:00:00 AM EDT [facility] ([facility]) OFFICE OUTPATIENT VISIT 10 MINUTES 10/09/2020 12:00:00 AM EDT [facility] (Kevin Baer MD) OFFICE OUTPATIENT VISIT 10 MINUTES 08/28/2020 12:00:00 AM EDT [facility] ([facility] Chalazion removal (procedure) History of excision of a single chalazion of the left upper eyelid 08/22/2020 12:00:00 AM EDT [facility] (Bin Jaramillo MD [facility]) Surgical / procedural history Pacemaker put in in 1987, Pacemaker replaced 2015, Uterin Tumor Removed 1975 Surgical / procedural history Pacemaker put in in 1987, Pacemaker replaced 2015, Uterin Tumor Removed 197508/22/2020 12:00:00 AM EDT [facility] (Heriberto Jaramillo MD [facility]) Extracapsular extraction of lens (procedure) History o f extracapsular cataract extraction PCIOL Right Eye 08/08/2016, PCIOL Left Eye 07/25/2016 08/22/2020 12:00:00 AM EDT [facility] (Heriberto Jaramillo MD [facility]) DESTRUCTION BENIGN LESIONS UP TO 14 08/09/2020 12:00:0 0 AM EDT [facility] ([facility]) OFFICE OUTPATIENT VISIT 10 MINUTES 07/11/2020 12:00:00 AM EDT [facility] ([facility]) Shave Biopsy Of Skin, Single Lesion 07/05/2020 12:00:0 0 AM EDT [facility] ([facility]) OFFICE OUTPATIENT VISIT 25 MINUTES 07/05/2020 12:00:00 AM EDT [facility] ([facility]) OFFICE OUTPATIENT VISIT 25 MINUTES 06/15/2020 12:00:00 AM EDT [facility] (Kevin Baer MD) OFFICE OUTPATIENT VISIT 10 MINUTES 06/14/2020 12:00:00 AM EDT [facility] (Kevin Baer MD) DESTRUCTION PREMALIGNANT LESION 1ST 06/12/2020 12:00:0 0 AM EDT [facility] ([facility]) DESTRUCTION PREMALIGNANT LESION 2-14 EA 06/12/2020 12: 00:00 AM EDT [facility] ([facility]) OFFICE OUTPATIENT VISIT 10 MINUTES 05/01/2020 12:00:00 AM EDT [facility] ([facility] NON-INVAS PHYSIOLOGIC STD EXTREMITY ART 2 LEVEL 2020 12:00:00 AM EST [facility] (Kevin Baer MD) ACNE SURGERY 02/21/2020 12:00:00 AM EST M [facility] ([facility]) OFFICE OUTPATIENT VISIT 25 MINUTES 02/21/2020 12:00:00 AM EST [facility] ([facility]) Surgical / procedural history Pacemaker put in in 1987, Pacemaker replaced 2015, Uterin Tumor Removed 1975 Surgical / procedural history Pacemaker put in in 1987, Pacemaker replaced 2015, Uterin Tumor Removed 197512/01/2019 12:00:00 AM EDT [facility] (Heriberto Jaramillo MD [facility]) Extracapsular extraction of lens (procedure) History o f extracapsular cataract extraction PCIOL Right Eye 08/08/2016, PCIOL Left Eye 07/25/2016 12/01/2019 12:00:00 AM EDT [facility] (Heriberto Jaramillo MD [facility]) Intermediate Eye Exam Established Patient (Signi/Sep E joseph. & Man.) Intermediate Eye Exam Established Patient (Signi/Sep Eval. & Man.) 12/01/2019 12:00:00 AM EDT [facility] (Heriberto Jaramillo MD 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) MYOCARDIAL SPECT MULTIPLE STUDIES 11/10/2019 12:00:00 AM EDT [facility] (Kevin Baer MD) ECG ROUTINE ECG W/LEAST 12 LDS W/I&R 10/26/2019 12:00: 00 AM EDT [facility] (Kevin Baer MD) ECHO TTHRC R-T 2D W/WOM-MODE COMPL SPEC&COLR DOP 10/25 12:00:00 AM EDT [facility] (Kevin Baer MD) Results ID Date Data Source [id number] 07/11/2020 04:02:00 PM EDT [facility] ([facility]) Name Value Range Interpretation Code Description Data Ilene rce(s) Supporting Document(s) Laboratory test finding (navigational concept) Laboratory test result [facility] ([facility]) No further treatment necessary Thyrotropin [Units/volume] in Serum or Plasma 0.975 uIU/mL 0.450-4.50 0 [facility] ([facility]) No further treatment necessary ID Date Data Source [id number] 07/11/2020 02:47:00 PM EDT [facility] ([facility]) Name Value Range Interpretation Code Description Data Ilene rce(s) Supporting Document(s) Thyrotropin [Units/volume] in Serum or Plasma Laboratory test result [facility] ([facility]) ID Date Data Source [id number] 07/05/2020 03:47:00 PM [facility]T [facility]) Name Value Range Interpretation Code Description Data Ilene rce(s) Supporting Document(s) Laboratory test finding (navigational concept) Laboratory test result [facility] ([facility]) ICD9 Code: L90.5 Protocol: lilo Clinical Text: SCAR VS BCC Final Diagnosis: [...] and multiple level sections were examined. CPT: 20768*1 CPT: 36923*1 CPT: 79813*1 Laboratory test finding (navigational concept) Laboratory test result [facility] ([facility]) ID Date Data Source [id number] 06/15/2020 11:57:00 AM EDT [facility]Kevin [facility] Name Value Range Interpretation Code Description Data Ilene rce(s) Supporting Document(s) Laboratory test finding (navigational concept) Laboratory test result [facility] (Kevin Baer MD) <content>_CULTURE URINE_</content>
<content>^$007809</content>
<content>^^367523</content>
<content>$$514935</content>
<content>^^713479</content>
<content>$$ 215765</content>
<content>$$934995</content>
<content>$$136055</content>
<content>$$ 477272</content>
<content>$$908541</content>
<content>$$419050</content>
<content> $$486222</content>
<content>$$941747</content>
<content>$$342498</conten t>
<content>$$944234</content>
<content>$$482693</content>
<content> $$030753</content>
<content>$$099423</content>
<content>$$973336</content>
<content>$$31020 0</content>
<content>$$581808</content>
<content>$$827223</content>
<content>$$345861</content>
<content>$$216457</content>
<content>$$032342</content>
<content>$$ 674355</content>
<content>$$612506</content>
<content>$$998434</content>
<content> ^^287667</content>
<content>$$762968</content>
<content>$$378699</conten t>
<content>$$370089</content>
<content></content>
<content>-- Continued on next page --</content>
<content>Patient: HARMEET Melgoza Order: [id number] Page 2</content>
<content>Culture: CULTURE URINE Status: Final</harmony nt>
<content> < /content>
<content></content>
<content></content>
<content>-- Continued on next page --</content>
<content>Patient: HARMEET Melgoza Order: [id number] Page 2</content>
<content>Culture: CULTURE URINE Status: Prelim</content>
<content> < /content>
<content></content>
<content>$$210881</content>
<content>$ $440100</content>
<content></content>
<content>REPORTED DATE/TIME: 06/20/2020 07:06</content>
<content>Culture: CULTURE URINE Status: Final</content>
<content></content>
<content>Isolate 1 Escherichia coli Flag: A . . . . . . .1</content>
<content>1,000 Colonies/mL</content>
<content>Cefazolin <=4 ug/mL</content>
<content>Cefazolin with an ALDEN <=16 predicts susceptibility to the oral agents</content>
<content>cefaclor, cefdinir, cefpodoxime, cefprozil, cefuroxime, cephalexin,</content>
<content>and loracarbef when used for therapy of uncomplicated urinary tract</content>
<content>infections due to E. coli, Klebsiella pneumoniae, and Proteus</content>
<content>mirabilis.</content>
<content> Previous result entered on 06/17/2020 23:58 ET </content>
<content>Gram negative rods</content>
<content>Urine Culture,Comprehensive: P1</content>
<content>Escherichia coli Flag: A</content>
<content></content>
<content></content>
<content> Patient: HARMEET Melgoza Order: [id number] Page 3</content>
<content>Culture: CULTURE URINE Status: Final</content>
<content> < /content>
<content></content>
<content>ISOLATE 1 Escherichia coli</content>
<content></content>
<content>Isolate 1</content>
<content>Antibiotic ALDEN Int</content>
<content>Units ug/mL</content>
<content> < /content>
<content></content>
<content>Amoxicillin/Clavulanic Acid S S . . . . . .20-8</content>
<content>Ampicillin R R . . . . . .28-1</content>
<content>Cefepime S S . . . . . .6644-9</content>
<content>Ceftriaxone S S . . . . . .141-2</content>
<content>Cefuroxime S S . . . . . .145-3</content>
<content>Ciprofloxacin S S . . . . . .185-9</content>
<content>Ertapenem S S . . . . . .87377-6</content>
<content>Gentamicin S S . . . . . .267-5</content>
<content>Imipenem S S . . . . . .279-0</content>
<content>Levofloxacin S S . . . . . .82594-9</content>
<content>Meropenem S S . . . . . .6652-2</content>
<content>Nitrofurantoin S S . . . . . .363-2</content>
<content>Piperacillin/Tazobactam S S . . . . . .412-7</content>
<content>Tetracycline R R . . . . . .496-0</content>
<content>Tobramycin S S . . . . . .508-2</content>
<content>Trimethoprim/Sulfa R R . . . . . .516-5</content>
<content></content>
<content>P1 Test performed by: Antonio SHARP #: [id number]</content>
<content>[address]</content>
<content>[id number]</content>
<content>[place] [id number]</content>
<content>Desktop Analyst : Killian Galaviz MD NPI #:</content>
<content>Cotton Ball Bagger :</content>
<content>06/19/20.0627.XMT.SENT REF</content>
<content>06/20/20.0747.XMT.SENT REF</content>
<content></content>
<content></content> ID Date Data Source [id number] 06/15/2020 11:57:00 AM EDT [facility] (Kevin Baer MD) Name Value Range Interpretation Code Description Data Ilene rce(s) Supporting Document(s) Laboratory test finding (navigational concept) Laboratory test r esult 0.00-0.79 [facility] (Kevin Baer MD) <content>Negative <0.80</content >
<content>Equivocal 0.80 - 1.19</content>
<content>Positive >1.19</content>
<content>IgM levels may peak at 3-6 weeks post infection, then</content>
<content>gradually decline.</content>
<content></content> Laboratory test finding (navigational concept) Laboratory test r esult 0.00-0.90 [facility] (Kevin Baer MD) <content>Negative <0.91</content >
<content>Equivocal 0.91 - 1.09</content>
<content>Positive >1.09</content>
<content></content> ID Date Data Source [id number] 06/15/2020 11:57:00 AM EDT [facility] (Kevin Baer MD) Name Value Range Interpretation Code Description Data Ilene rce(s) Supporting Document(s) Cobalamin (Vitamin B12) [Mass/volume] in Serum or Plasma 1361 pg /mL 232-1245 Above high normal [facility] (Kevin Baer MD) Thyrotropin [Units/volume] in Serum or Plasma by Detec tion limit <= 0.005 mIU/L 0.81 uIU/mL 0.47-5.01 [facility] (Kevin Baer MD) ID Date Data Source [id number] 06/15/2020 11:57:00 AM EDT [facility] (Kevin Baer MD) Name Value Range Interpretation Code Description Data Ilene rce(s) Supporting Document(s) Laboratory test finding (navigational concept) Laboratory test result [facility] (Kevin Baer MD) URINALYSIS Laboratory test finding (navigational concept) Laboratory test result [facility] (Kevin Baer MD) Laboratory test finding (navigational concept) Laboratory test result [facility] (Kevin Baer MD) Laboratory test finding (navigational concept) Laboratory test result [facility] (Kevin Baer MD) Laboratory test finding (navigational concept) Laboratory test result [facility] (Kevin Baer MD) Laboratory test finding (navigational concept) 5 5-9 [facility] (Kevin Baer MD) Laboratory test finding (navigational concept) 1.010 1.001-1.030 [facility] (Kevin Baer MD) Laboratory test finding (navigational concept) Laboratory test result [facility] (Kevin Baer MD) Laboratory test finding (navigational concept) Laboratory test result [facility] (Kevin Baer MD) Laboratory test finding (navigational concept) Laboratory test result [facility] (Kevin Baer MD) Laboratory test finding (navigational concept) Laboratory test result [facility] (Kevin Baer MD) Laboratory test finding (navigational concept) 25 [facility] (Kevin Baer MD) Laboratory test finding (navigational concept) Laboratory test result [facility] (Kevin Baer MD) Laboratory test finding (navigational concept) Laboratory test result [facility] (Kevin Baer MD) Laboratory test finding (navigational concept) Laboratory test result [facility] (Kevin Baer MD) Laboratory test finding (navigational concept) Laboratory test result [facility] (Kevin Baer MD) Laboratory test finding (navigational concept) Laboratory test result [facility] (Kevin Baer MD) Laboratory test finding (navigational concept) Laboratory test result [facility] (Kevin Baer MD) Laboratory test finding (navigational concept) Laboratory test result [facility] (Kevin Baer MD) ID Date Data Source [id number] 06/15/2020 11:57:00 AM EDT [facility] (Kevin Baer MD) Name Value Range Interpretation Code Description Data Ilene rce(s) Supporting Document(s) Thyroxine (T4) free [Mass/volume] in Serum or Plasma 1.43 ng/dL 0.93- 1.70 [facility] (Kevin Baer MD) ID Date Data Source [id number] 06/15/2020 11:57:00 AM EDT [facility] (Kevin Baer MD) Name Value Range Interpretation Code Description Data Ilene rce(s) Supporting Document(s) Laboratory test finding (navigational concept) Laboratory test result [facility] (Kevin Baer MD) LIPID PANEL Laboratory test finding (navigational concept) 136 mg/dL 35-160 [facility] (Kvein Baer MD) Laboratory test finding (navigational concept) 189 mg/dL 131-200 [facility] (Kevin Baer MD) Laboratory test finding (navigational concept) 101 mg/dL 65-175 [facility] (Kevin Baer MD) Laboratory test finding (navigational concept) 76 mg/dL 29-86 [facility] (Kevin Baer MD) Laboratory test finding (navigational concept) 2.5 3.2-4.4 Below low normal [facility] (Kevin Baer MD) Laboratory test finding (navigational concept) 1.33 1.47-3. 22 Below low normal [facility] (Kevin Baer MD) CVE RISK CHOL/HDL LDL/HDL MEN: 1/2 AVERAGE 3.43 1.00 AVERAGE 4.97 3.55 2X AVERAGE 9.55 6.25 3X AVERAGE 23.99 7.99 WOMEN: 1/2 AVERAGE 3.27 1.47 AVERAGE 4.44 3.22 2X AVERAGE 7.05 5.03 3X AVERAGE 11.04 6.14 ID Date Data Source [id number] 06/15/2020 11:57:00 AM EDT [facility] (Kevin Baer MD) Name Value Range Interpretation Code Description Data Ilene rce(s) Supporting Document(s) Laboratory test finding (navigational concept) Laboratory test result [facility] (Kevin Baer MD) COMPREHENSIVE METABOLIC PANEL Laboratory test finding (navigational concept) 139 meq/L 134-153 [facility] (Kevin Baer MD) Laboratory test finding (navigational concept) 4.6 meq/L 3.6-5.0 [facility] (Kevin Baer MD) Laboratory test finding (navigational concept) 26 meq/L 22-30 [facility] (Kevin Baer MD) Laboratory test finding (navigational concept) 103 meq/L 98-107 [facility] (Kevin Baer MD) Laboratory test finding (navigational concept) 0.9 mg/dL 0.7-1.5 [facility] (Kevin Baer MD) Laboratory test finding (navigational concept) 105 mg/dL 7 0-99 Above high normal [facility] (Kevin Baer MD) Laboratory test finding (navigational concept) 20 mg/dL 7-21 [facility] (Kevin Baer MD) Laboratory test finding (navigational concept) 7.4 g/dL 6.3-8.2 [facility] (Kevin Baer MD) Laboratory test finding (navigational concept) 22 8-27 [facility] (Kevin Baer MD) Laboratory test finding (navigational concept) 4.4 g/dL 3.9-5.0 [facility] (Kevin Baer MD) Laboratory test finding (navigational concept) 3.0 GM/DL 2.4-3.2 [facility] (Kevin Baer MD) Laboratory test finding (navigational concept) 1.5 0.8-2.0 [facility] (Kevin Baer MD) Laboratory test finding (navigational concept) 10.0 mg/dL 8.4-10.2 [facility] (Kevin Baer MD) Laboratory test finding (navigational concept) 51 U/L 38-126 [facility] (Kevin Baer MD) Laboratory test finding (navigational concept) Laboratory test resu lt 0.2-1.3 [facility] (Kevin Baer MD) Laboratory test finding (navigational concept) 9 U/L 7-56 [facility] (Kevin Baer MD) Laboratory test finding (navigational concept) 10.0 mmol/L 8.0-16.0 [facility] (Kevin Baer MD) Laboratory test finding (navigational concept) 15 U/L 5-40 [facility] (Kevin Baer MD) Laboratory test finding (navigational concept) Laboratory test result [facility] (Kevin Baer MD) Laboratory test finding (navigational concept) 84 yrs [facility] (Kevin Baer MD) Laboratory test finding (navigational concept) Laboratory test result [facility] (Kevin Baer MD) Male GFR Interprentation 20-49 yrs >60 mL/min Normal 50-59 yrs >56 mL/min Normal 60-69 yrs >49 mL/min Normal 70-79yrs >42 mL/min Normal 80 and above >35 mL/min Normal Female GFR Interpretation 20-39 yrs >60 mL/min Normal 40-49 yrs >58 mL/min Normal 50-59 yrs >51 mL/min Normal 60-69 yrs >45 mL/min Normal 70-79 yrs >39 mL/min Normal 80 and above >32 mL/min Normal ID Date Data Source [id number] 06/15/2020 11:57:00 AM EDT [facility] (Kevin Baer MD) Name Value Range Interpretation Code Description Data Ilene rce(s) Supporting Document(s) Iron [Mass/volume] in Serum or Plasma 74 ug/dL 42-135 [facility] (Kevin Baer MD) Magnesium [Mass/volume] in Serum or Plasma 2.0 mg/dL 1.7-2.2 [facility] (Kevin Baer MD) C reactive protein [Mass/volume] in Serum or Plasma by High sensitivity method 0.57 mg/L 1.00-3.00 Below low normal [facility] (Kevin Baer MD) <content>CDC/S HS-CRP CUT-OFF: RELATIVE RISK:</content>
<content><1.0 mg/L Low</content>
<content>1.0 - 3.0 mg/L Average</harmony nt>
<content>>3.0 mg/L High</content>
<content>Optimally, the average of HS-CRP results repeated</content>
<content>two weeks apart should be used for risk assessment.</content>
<content></content> ID Date Data Source [id number] 06/15/2020 11:57:00 AM EDT [facility] (Kevin Baer MD) Name Value Range Interpretation Code Description Data Ilene rce(s) Supporting Document(s) Laboratory test finding (navigational concept) Laboratory test result [facility] (Kevin Baer MD) COMPLETE BLOOD COUNT Laboratory test finding (navigational concept) 3.55 10^6/uL 4 .20-5.40 Below low normal [facility] (Kevin Baer MD) Laboratory test finding (navigational concept) 11.5 g/dL 1 2.0-16.0 Below low normal [facility] (Kevin Baer MD) Laboratory test finding (navigational concept) 5.2 10^3/uL 4.2-11.0 [facility] (Kevin Baer MD) Laboratory test finding (navigational concept) 98.9 fL 81.0-101 [facility] (Kevin Baer MD) Laboratory test finding (navigational concept) 35.1 % 3 7.0-47.0 Below low normal [facility] (Kevin Baer MD) Laboratory test finding (navigational concept) 32.8 g/dL 31.0-36.0 [facility] (Kevin Baer MD) Laboratory test finding (navigational concept) 32.4 pg 27.0-34.0 [facility] (Kevin Baer MD) Laboratory test finding (navigational concept) 238 10^3/uL 150-450 [facility] (Kevin Baer MD) Laboratory test finding (navigational concept) 13.9 % 11.5-14.5 [facility] (Kevin Baer MD) Laboratory test finding (navigational concept) 8.5 fL 7.4-10.4 [facility] (Kevin Baer MD) Laboratory test finding (navigational concept) 40.9 % 2 5.0-40.0 Above high normal [facility] (Kevin Baer MD) Laboratory test finding (navigational concept) 48.3 % 37.0-80.0 [facility] (Kevin Baer MD) Laboratory test finding (navigational concept) 3.8 % 0.0-7.0 [facility] (Kevin Baer MD) Laboratory test finding (navigational concept) 5.6 % 3.0-8.0 [facility] (Kevin Baer MD) Laboratory test finding (navigational concept) 0.2 % 0.0-0.0 Above high normal [facility] (Kevin Baer MD) Laboratory test finding (navigational concept) 1.2 % 0.0-2.5 [facility] (Kevin Baer MD) Laboratory test finding (navigational concept) 0.0 % 0.0-0.0 [facility] (Kevin Baer MD) Laboratory test finding (navigational concept) 2.52 10^3/uL 2.00-6.90 [facility] (Kevin Baer MD) Laboratory test finding (navigational concept) 0.20 10^3/uL 0.00-0.70 [facility] (Kevin Baer MD) Laboratory test finding (navigational concept) 2.13 10^3/uL 0.60-3.40 [facility] (Kevin Baer MD) Laboratory test finding (navigational concept) 0.29 10^3/uL 0.00-0.90 [facility] (Kevin Baer MD) Laboratory test finding (navigational concept) 0.06 10^3/uL 0.00-0.20 [facility] (Kevin Baer MD) Laboratory test finding (navigational concept) 0.01 10^3/uL 0.00-0.10 [facility] (Kevin Baer MD) Laboratory test finding (navigational concept) Laboratory test result [facility] (Kevin Baer MD) Laboratory test finding (navigational concept) 0.00 10^3/uL 0.00-0.00 [facility] (Kevin Baer MD) Laboratory test finding (navigational concept) Laboratory test result [facility] (Kevin Baer MD) ID Date Data Source [id number] 06/15/2020 11:57:00 AM EDT [facility] (Kevin Baer MD) Name Value Range Interpretation Code Description Data Ilene rce(s) Supporting Document(s) Hemoglobin A1c/Hemoglobin.total in Blood 5.8 % 4.4-6.1 [facility] (Kevin Baer MD) {A1] {HB] ID Date Data Source [id number] 06/20/2020 07:47:00 AM EDT [facility] Name Value Range Interpretation Code Description Data Ilene rce(s) Supporting Document(s) CULTURE URINE [facility] spital _CULTURE URINE_$$[id number]$$[id number]$$945559$$003969$$509046$$647388$$329916$$194088$$727289$$ 842661$$600264$$272300$$182073$$706746$$605031$$145380$$169978$$790741$$961052$$ 571490$$366947$$479627$$152477$$430531$$589791$$472218$$[id number] -- Continued on next page --Patient: HARMEET Melgoza Order: Page 2Culture: CULTURE URINE Status: Final ==== -- Continued on next page --Patient: HARMEET Melgoza Order: Page 2Culture: CULTURE URINE Status: Prelim =====$$[id number] DATE/TIME: 06/20/2020 07:06Culture: CULTURE URINE Status: FinalIsolate 1 Escherichia coli Flag: A . . . . . . .11,000 Colonies/mLCefazolin <=4 ug/mLCefazolin with an ALDEN <=16 predicts susceptibility to the oral agentscefaclor, cefdinir, cefpodoxime, cefprozil, cefuroxime, cephalexin,and loracarbef when used for therapy of uncomplicated urinary tractinfections due to E. coli, Klebsiella pneumoniae, and Proteusmirabilis. Previous result entered on 06/17/2020 23:58 ET Gram negative rodsUrine Culture,Comprehensive: [id number] coli Flag: APatient: HARMEET Melgoza Order: Page 3Culture: CULTURE URINE Status: Final ISOLATE 1 Escherichia coli Isolate 1Antibiotic ALDEN IntUnits ug/mL Amoxicillin/Cla vulanic Acid S S . . . . . .20-8Ampicillin R R . . . . . .28-1Cefepime S S . . . . . .6644-9Ceftriaxone S S . . . . . .141- 2Cefuroxime S S . . . . . .145-3Ciprofloxacin S S . . . . . .185-9Ertapenem S S . . . . . .91263-2Vaohvrrzfb S S . . . . . .267-5Imipenem S S . . . . . .279-0Levofloxacin S S . . . . . .25199-4Whcchnuzz S S . . . . . .6652- 2Nitrofurantoin S S . . . . . .363-2Piperacillin/Tazobactam S S . . . . . .412-7Tetracycline R R . . . . . .496-0Tobramycin S S . . . . . .508-2Trimethoprim/Sulfa R R . . . . . .516-5P1 Test performed by: [facility] Allie SHARP #: [id number] [address] [place] [id number] [facility] [id number] Director : Killian Galaviz MD NPI #:Cotton Ball Bagger : 06/19/2027.XMT.SENT REF 06/20/20.XMT.SENT REF ID Date Data Source [id number] 06/17/2020 04:36:00 PM EDT [facility] Name Value Range Interpretation Code Description Data Ilene rce(s) Supporting Document(s) Borrelia burgdorferi IgG+IgM Ab [Units/volume] in Serum <0.91 ISR 0. 00-0.90 [facility] Negative <0.91 Equivocal 0.91 - 1.09 Positive >1.09 Borrelia burgdorferi IgM Ab [Units/volume] in Serum by Immun oassay <0.80 index 0.00-0.79 [facility] Negative <0.80 Equivocal 0.80 - 1.19 Positive >1.19 IgM levels may peak at 3-6 weeks post infection, then gradually decline. ID Date Data Source [id number] 06/15/2020 01:50:00 PM [facility] Name Value Range Interpretation Code Description Data Ilene rce(s) Supporting Document(s) Thyrotropin [Units/volume] in Serum or Plasma by Detec tion limit <= 0.05 mIU/L 0.81 uIU/mL 0.47 - 5.01 [facility] ID Date Data Source [id number] 06/15/2020 01:26:00 PM EDT [facility] Name Value Range Interpretation Code Description Data Ilene rce(s) Supporting Document(s) Cobalamin (Vitamin B12) [Mass/volume] in Serum or Plasma 1361 PG /ML 232 - 1245 H [facility] ID Date Data Source [id number] 06/15/2020 01:16:00 PM [facility] Name Value Range Interpretation Code Description Data Ilene rce(s) Supporting Document(s) URINALYSIS [facility] Hospi jevon URINALYSIS SOURCE R [facility] al COLOR yellow NORMAL: Yellow [facility] H ospital CLARITY clear NORMAL: Clear [facility] Ho spital Specific gravity of Urine by Test strip 1.010 1.001 - 1.030 [facility] pH 5 5 - 9 [facility] Glucose [Mass/volume] in Urine by Test strip NORM NORMAL: Negat kandy [facility] Bilirubin.total [Presence] in Urine by Test strip NEG NORMAL: Negative [facility] Ketones [Presence] in Urine by Test strip NEG NORMAL: Negative [facility] Protein [Mass/volume] in Urine by Test strip NEG NORMAL: Negat kandy [facility] Nitrite [Presence] in Urine by Test strip NEG NORMAL: Negative [facility] BLOOD NEG NORMAL: Negative [facility] Leukocyte esterase [Presence] in Urine by Test strip 25 RENNY L: Negative [facility] Urobilinogen [Mass/volume] in Urine by Test strip NOR less sania n 1.0 mg/dL [facility] MICROSCOPIC See Below [facility] ital WBC 0 - 1 NORMAL: NONE SEEN [facility] Erythrocytes [#/volume] in Urine by Test strip None Seen NORMAL: NON E SEEN [facility] EPITHELIAL FEW NORMAL: NONE SEEN [facility] Mucus [Presence] in Urine sediment by Light microscopy Trace NORMAL: NONE SEEN [facility] ID Date Data Source [id number] 06/15/2020 01:10:00 PM EDT [facility] Name Value Range Interpretation Code Description Data Ilene rce(s) Supporting Document(s) Thyroxine (T4) free index in Serum or Plasma by calculation 1.43 NG/DL 0.93 - 1.70 [facility] ID Date Data Source [id number] 06/15/2020 01:00:00 PM EDT [facility] Name Value Range Interpretation Code Description Data Ilene rce(s) Supporting Document(s) C reactive protein [Mass/volume] in Serum or Plasma by High sensitivity method 0.57 MG/L 1.00 - 3.00 L [facility] CDC/S HS-CRP CUT-OFF: RELATIVE RISK: <1.0 mg/L Low 1.0 - 3.0 mg/L Average >3.0 mg/L High Optimally, the average of HS-CRP results repeated two weeks apart should be used for risk assessment. ID Date Data Source [id number] 06/15/2020 01:00:00 PM EDT [facility] Name Value Range Interpretation Code Description Data Ilene rce(s) Supporting Document(s) [facility] LIPID PANEL Cholesterol [Mass/volume] in Serum or Plasma 189 MG/DL 131 - 200 [facility] Deprecated Triglyceride [Mass/volume] in Serum or Plasma 136 MG/DL 3 5 - 160 [facility] HDL 76 MG/DL 29 - 86 [facility] Cholesterol in LDL [Mass/volume] in Serum or Plasma by Direc t assay 101 mg/dL 65 - 175 [facility] Cholesterol.total/Cholesterol in HDL [Mass Ratio] in Serum o r Plasma 2.5 3.2 - 4.4 L [facility] LDL/HDL 1.33 1.47 - 3.22 L [facility] ital CVE RISK CHOL/HDL LDL/HDLMEN: 1/2 AVERAGE 3.43 1.00 AVERAGE 4.97 3.55 2X AVERAGE 9.55 6.25 3X AVERAGE 23.99 7.99WOMEN: 1/2 AVERAGE 3.27 1.47 AVERAGE 4.44 3.22 2X AVERAGE 7.05 5.03 3X AVERAGE 11.04 6.14 ID Date Data Source [id number] 06/15/2020 01:00:00 PM EDT [facility] Name Value Range Interpretation Code Description Data Ilene rce(s) Supporting Document(s) COMPREHENSIVE METABOLIC PANEL [facility] COMPREHENSIVE METABOLIC PANEL Sodium [Moles/volume] in Serum or Plasma 139 mEq/L 134 - 153 [facility] Potassium [Moles/volume] in Serum or Plasma 4.6 mEq/L 3.6 - 5.0 [facility] Chloride [Moles/volume] in Serum or Plasma 103 mEq/L 98 - 107 [facility] Carbon dioxide, total [Moles/volume] in Serum or Plasma 26 MEQ/L 22 - 30 [facility] Glucose [Mass/volume] in Serum or Plasma 105 MG/DL 70 - 99 H [facility] BUN 20 MG/DL 7 - 21 [facility] Creatinine [Mass/volume] in Serum or Plasma 0.9 MG/DL 0.7 - 1.5 [facility] BUN/CREAT 22 8 - 27 [facility] al Protein [Mass/volume] in Serum or Plasma 7.4 G/DL 6.3 - 8.2 [facility] Albumin [Mass/volume] in Serum or Plasma 4.4 G/DL 3.9 - 5.0 [facility] Globulin [Mass/volume] in Serum by calculation 3.0 GM/DL 2.4 - 3.2 [facility] A/G RATIO 1.5 0.8 - 2.0 [facility] Calcium [Mass/volume] in Serum or Plasma 10.0 MG/DL 8.4 - 10.2 [facility] Bilirubin.total [Mass/volume] in Serum or Plasma <0.7 MG/DL 0.2 - 1.3 [facility] Alkaline phosphatase [Enzymatic activity/volume] in Serum or Plasma 51 U/L 38 - 126 [facility] Aspartate aminotransferase [Enzymatic activity/volume] in Serum or Plasma 15 U/L 5 - 40 [facility] Alanine aminotransferase [Enzymatic activity/volume] in Seru m or Plasma 9 U/L 7 - 56 [facility] Anion gap 3 in Serum or Plasma 10.0 mmol/L 8.0 - 16.0 [facility] AGE 84 yrs [facility] al NON-AA GFR >60 mL/min [facility] ital AFR AMER GFR >60 [facility] pital Male GFR In terprentation 20-49 yrs >60 mL/min Normal 50-59 yrs >56 mL/min Normal 60-69 yrs >49 mL/min Normal 70-79yrs >42 mL/min Normal 80 and above >35 mL/min Normal Female GFR Interpretation 20-39 yrs >60 mL/min Normal 40-49 yrs >58 mL/min Normal 50-59 yrs >51 mL/min Normal 60-69 yrs >45 mL/min Normal 70-79 yrs >39 mL/min Normal 80 and above >32 mL/min Normal ID Date Data Source [id number] 06/15/2020 12:55:00 PM EDT [facility] Name Value Range Interpretation Code Description Data Ilene rce(s) Supporting Document(s) Magnesium [Mass/volume] in Serum or Plasma 2.0 MG/DL 1.7 - 2.2 [facility] ID Date Data Source [id number] 06/15/2020 12:55:00 PM EDT [facility] Name Value Range Interpretation Code Description Data Ilene rce(s) Supporting Document(s) Iron [Mass/volume] in Serum or Plasma 74 UG/DL 42 - 135 [facility] ID Date Data Source [id number] 06/15/2020 12:30:00 PM EDT [facility] Name Value Range Interpretation Code Description Data Ilene rce(s) Supporting Document(s) CBC W/AUTOMATED DIFF [facility] COMPLETE BLOOD COUNT Leukocytes [#/volume] in Blood by Automated count 5.2 10^3/uL 4.2 - 1 1.0 [facility] Erythrocytes [#/volume] in Blood by Automated count 3.55 10^6/uL 4. 20 - 5.40 L [facility] Hemoglobin [Mass/volume] in Blood 11.5 g/dL 12.0 - 16.0 L [facility] Hematocrit [Volume Fraction] of Blood by Automated count 35.1 % 3 7.0 - 47.0 L [facility] Erythrocyte mean corpuscular volume [Entitic volume] by Auto mated count 98.9 fL 81.0 - 101 [facility] Erythrocyte mean corpuscular hemoglobin [Entitic mass] by Automated count 32.4 pg 27.0 - 34.0 [facility] Erythrocyte mean corpuscular hemoglobin concentration [Mass/volume] by Automated count 32.8 g/dL 31.0 - 36.0 [facility] Erythrocyte distribution width [Ratio] by Automated count 13.9 % 11.5 - 14.5 [facility] Platelets [#/volume] in Blood by Automated count 238 10^3/uL 150 - 45 0 [facility] Platelet mean volume [Entitic volume] in Blood by Automated count 8.5 fL 7.4 - 10.4 [facility] Neutrophils/100 leukocytes in Blood by Automated count 48.3 % 37. 0 - 80.0 [facility] Lymphocytes/100 leukocytes in Blood by Manual count 40.9 % 25.0 - 40.0 H [facility] Monocytes/100 leukocytes in Blood by Automated count 5.6 % 3.0 - 8.0 [facility] Eosinophils/100 leukocytes in Blood by Automated count 3.8 % 0.0 - 7.0 [facility] [facility] Basophils/100 leukocytes in Blood by Automated count 1.2 % 0.0 - 2.5 [facility] %IG 0.2 % 0.0 - 0.0 [facility] %NR[facility] 0.0 % 0.0 - 0.0 [facility] Neutrophils [#/volume] in Blood by Automated count 2.52 10^3/uL 2.00 - 6.90 [facility] Lymphocytes [#/volume] in Blood by Automated count 2.13 10^3/uL 0.60 - 3.40 [facility] Monocytes [#/volume] in Blood by Automated count 0.29 10^3/uL 0.00 - 0.90 [facility] Eosinophils [#/volume] in Blood by Automated count 0.20 10^3/uL 0.00 - 0.70 [facility] Basophils [#/volume] in Blood by Automated count 0.06 10^3/uL 0.00 - 0.20 [facility] #IG 0.01 10^3/uL 0.00 - 0.10 [facility] H ospital #NRBC 0.00 10^3/uL 0.00 - 0.00 [facility]spital MANUAL DIFF NOT INDICATED [facility] RBC MORPH NOT INDICATED [facility] Ho spital ID Date Data Source [id number] 06/15/2020 12:17:00 PM EDT [facility] Name Value Range Interpretation Code Description Data Ilene rce(s) Supporting Document(s) Hemoglobin A1c/Hemoglobin.total in Blood 5.8 % 4.4 - 6.1 [facility] {A1]{HB] ID Date Data Source [id number] 12/16/2019 12:09:00 PM EST [facility] [address] [place] [address] PHONE: [phone] FAX: [phone] Name .................. : HARMEET SARAH T Acct Number.................. : [id number] ROOM. ................. : Number ................... : [id number] Stay type ............. : O/P Discharge Date......... ... : 12/15/19 Admit Date .... ..... : 12/15/19 Admit Phys .................... : CARMINA REYES Date of ....... : 1935 Family Phys ................... : MARY ELLEN Phone .................. : [phone] Age ................................ : 84 Film# .................. .:[id number] Sex ................................. : F Unsigned transcriptions are preliminary reports and do not represent a medical or legal document CT CTA CHEST NON-CORONARY W C [id number] COMPLETE:12/15/19 12:04 BEM [id number] (REASON FOR EXAM: PE CT ANGIOGRAM OF THE CHEST WITH CONTRAST: FINDINGS: Pulmonary embolism, aortic aneurysm or aortic dissection is not seen. The heart is not enlarged. Pneumonic infiltrate or pulmonic parenchymal mass is not seen. COPD changes are present. There is no mediastinal or hilar adenopathy. In the left lobe of the liver, there is a cystic structure seen measuring 1.3 cm in maximal diameter. Degenerative changes are noted in the spine without acute osseous abnormality. IMPRESSION: COPD. Pneumonic infiltrate. However, suspicious pulmonic mass not seen. Pulmonary embolism, aortic aneurysm or aortic dissection not seen. Small hepatic cystic structure noted. While performing the above CT examination, radiation dose reduction was accomplished utilizing automated exposure control, adjusting of the mA and kV based on the patient's body size and/or the use of imperative reconstructive techniques. CT dose: 297.3 mGycm Contrast agent in mL: 75 Isovue 370 Method of administration: Intravenous Electronically Reviewed and Signed By Becky Kent MD , 12/16/19 12:09, KGG Transcribe Initials: DZ , Transcribe Date: 12/16/19 00:03, Dictation Date: Page 1 of 2 [facility] [address] [place] [address] PHONE: [phone] FAX: [phone] Name .................. : HARMEET Melgoza Acct Number.................. : [id number] ROOM. ................. : MR Number ................... : [id number] Stay type ............. : O/P Discharge Date......... ... : 12/15/19 Admit Date ......... : 12/15/19 Admit Phys .................... : CARMINA REYES Date of ....... : 1935 Family Phys ................... : evocatal Phone .................. : [phone] Age ................................ : 84 Film# .................. .:[id number] Sex ................................. : F Unsigned transcriptions are preliminary reports and do not represent a medical or legal document CT CTA CHEST NON-CORONARY W C [id number] COMPLETE:12/15/19 12:04 BE [id number] (REASON FOR EXAM: PE Copy for: CARMINA BROWN via modem Copy for: MARY ELLEN RAMOS via modem Copy for: [address] [place] [address] REC Page 2 of 2 Name Value Range Interpretation Code Description Data Ilene rce(s) Supporting Document(s) ID Date Data Source [id number] 10/26/2019 05:39:00 PM EDT [facility] Value Range Interpretation Code Description Data Ilene rce(s) Supporting Document(s) Thyrotropin [Units/volume] in Serum or Plasma by Detec tion limit <= 0.05 mIU/L 2.29 uIU/mL 0.47 - 5.01 [facility] ID Date Data Source [id number] 10/26/2019 05:39:00 PM EDT [facility] Value Range Interpretation Code Description Data Ilene rce(s) Supporting Document(s) BNP 1396 PG/ML 0 - 450 H [facility] Hospi jevon ID Date Data Source [id number] 10/26/2019 05:39:00 PM EDT [facility] Value Range Interpretation Code Description Data Ilene rce(s) Supporting Document(s) Cobalamin (Vitamin B12) [Mass/volume] in Serum or Plasma 1311 PG /ML 232 - 1245 H [facility] ID Date Data Source [id number] 10/26/2019 05:39:00 PM EDT [facility] Value Range Interpretation Code Description Data Ilene rce(s) Supporting Document(s) Thyroxine (T4) free index in Serum or Plasma by calculation 1.48 NG/DL 0.93 - 1.70 [facility] ID Date Data Source [id number] 10/26/2019 05:39:00 PM EDT [facility] Value Range Interpretation Code Description Data Ilene rce(s) Supporting Document(s) Urate [Mass/volume] in Serum or Plasma 4.9 MG/DL 2.5 - 8.5 [facility] ID Date Data Source [id number] 10/26/2019 05:39:00 PM EDT [facility] Value Range Interpretation Code Description Data Ilene rce(s) Supporting Document(s) Magnesium [Mass/volume] in Serum or Plasma 1.9 MG/DL 1.7 - 2.2 [facility] ID Date Data Source [id number] 10/26/2019 05:39:00 PM EDT [facility] Name Value Range Interpretation Code Description Data Ilene rce(s) Supporting Document(s) CVE PANEL [facility] al LIPID PANEL Cholesterol [Mass/volume] in Serum or Plasma 186 MG/DL 131 - 200 [facility] Deprecated Triglyceride [Mass/volume] in Serum or Plasma 105 MG/DL 3 5 - 160 [facility] HDL 73 MG/DL 29 - 86 [facility] al Cholesterol in LDL [Mass/volume] in Serum or Plasma by Direc t assay 101 mg/dL 65 - 175 [facility] Cholesterol.total/Cholesterol in HDL [Mass Ratio] in Serum o r Plasma 2.5 3.2 - 4.4 L [facility] LDL/HDL 1.38 1.47 - 3.22 L [facility] ital CVE RISK CHOL/HDL LDL/HDLMEN: 1/2 AVERAGE 3.43 1.00 AVERAGE 4.97 3.55 2X AVERAGE 9.55 6.25 3X AVERAGE 23.99 7.99WOMEN: 1/2 AVERAGE 3.27 1.47 AVERAGE 4.44 3.22 2X AVERAGE 7.05 5.03 3X AVERAGE 11.04 6.14 ID Date Data Source [id number] 10/26/2019 05:39:00 PM EDT [facility] Name Value Range Interpretation Code Description Data Ilene rce(s) Supporting Document(s) COMPREHENSIVE METABOLIC PANEL [facility] COMPREHENSIVE METABOLIC PANEL Sodium [Moles/volume] in Serum or Plasma 141 mEq/L 134 - 153 [facility] Potassium [Moles/volume] in Serum or Plasma 4.3 mEq/L 3.6 - 5.0 [facility] Chloride [Moles/volume] in Serum or Plasma 103 mEq/L 98 - 107 [facility] Carbon dioxide, total [Moles/volume] in Serum or Plasma 28 MEQ/L 22 - 30 [facility] Glucose [Mass/volume] in Serum or Plasma 97 MG/DL 65 - 110 [facility] BUN 18 MG/DL 7 - 21 [facility] al Creatinine [Mass/volume] in Serum or Plasma 1.0 MG/DL 0.7 - 1.5 [facility] BUN/CREAT 18 8 - 27 [facility] al Protein [Mass/volume] in Serum or Plasma 7.3 G/DL 6.3 - 8.2 [facility] Albumin [Mass/volume] in Serum or Plasma 4.4 G/DL 3.9 - 5.0 [facility] Globulin [Mass/volume] in Serum by calculation 2.9 GM/DL 2.4 - 3.2 [facility] A/G RATIO 1.5 0.8 - 2.0 [facility] Calcium [Mass/volume] in Serum or Plasma 9.3 MG/DL 8.4 - 10.2 [facility] Bilirubin.total [Mass/volume] in Serum or Plasma <0.7 MG/DL 0.2 - 1.3 [facility] Alkaline phosphatase [Enzymatic activity/volume] in Serum or Plasma 52 U/L 38 - 126 [facility] Aspartate aminotransferase [Enzymatic activity/volume] in Serum or Plasma 19 U/L 5 - 40 [facility] Alanine aminotransferase [Enzymatic activity/volume] in Seru m or Plasma 12 U/L 7 - 56 [facility] Anion gap 3 in Serum or Plasma 10.0 mmol/L 8.0 - 16.0 [facility] AGE 84 yrs [facility] al NON-AA GFR 56 mL/min [facility] AFR AMER GFR >60 [facility] Hos pital Male GFR In terprentation 20-49 yrs >60 mL/min Normal 50-59 yrs >56 mL/min Normal 60-69 yrs >49 mL/min Normal 70-79yrs >42 mL/min Normal 80 and above >35 mL/min Normal Female GFR Interpretation 20-39 yrs >60 mL/min Normal 40-49 yrs >58 mL/min Normal 50-59 yrs >51 mL/min Normal 60-69 yrs >45 mL/min Normal 70-79 yrs >39 mL/min Normal 80 and above >32 mL/min Normal ID Date Data Source [id number] 10/26/2019 05:39:00 PM EDT [facility] Name Value Range Interpretation Code Description Data Ilene rce(s) Supporting Document(s) Iron [Mass/volume] in Serum or Plasma 87 UG/DL 42 - 135 [facility] ID Date Data Source [id number] 10/26/2019 05:38:00 PM EDT [facility] Name Value Range Interpretation Code Description Data Ilene rce(s) Supporting Document(s) Hemoglobin A1c/Hemoglobin.total in Blood 5.5 % 4.4 - 6.1 [facility] {A1]{HB] ID Date Data Source [id number] 10/26/2019 04:05:00 PM EDT [facility] Name Value Range Interpretation Code Description Data Ilene rce(s) Supporting Document(s) Fibrin D-dimer FEU [Mass/volume] in Platelet poor plasma 0.39 ug /mL 0.27 - 0.50 [facility] ID Date Data Source [id number] 10/26/2019 03:53:00 PM EDT [facility] Name Value Range Interpretation Code Description Data Ilene rce(s) Supporting Document(s) CBC W/AUTOMATED DIFF [facility] COMPLETE BLOOD COUNT Leukocytes [#/volume] in Blood by Automated count 6.1 10^3/uL 4.2 - 1 1.0 [facility] Erythrocytes [#/volume] in Blood by Automated count 3.67 10^6/uL 4. 20 - 5.40 L [facility] Hemoglobin [Mass/volume] in Blood 11.4 g/dL 12.0 - 16.0 L [facility] Hematocrit [Volume Fraction] of Blood by Automated count 35.4 % 3 7.0 - 47.0 L [facility] Erythrocyte mean corpuscular volume [Entitic volume] by Auto mated count 96.5 fL 81.0 - 101 [facility] Erythrocyte mean corpuscular hemoglobin [Entitic mass] by Automated count 31.1 pg 27.0 - 34.0 [facility] Erythrocyte mean corpuscular hemoglobin concentration [Mass/volume] by Automated count 32.2 g/dL 31.0 - 36.0 [facility] Erythrocyte distribution width [Ratio] by Automated count 13.5 % 11.5 - 14.5 [facility] Platelets [#/volume] in Blood by Automated count 213 10^3/uL 150 - 45 0 [facility] Platelet mean volume [Entitic volume] in Blood by Automated count 8.3 fL 7.4 - 10.4 [facility] Neutrophils/100 leukocytes in Blood by Automated count 46.0 % 37. 0 - 80.0 [facility] Lymphocytes/100 leukocytes in Blood by Manual count 37.2 % 25.0 - 40.0 [facility] Monocytes/100 leukocytes in Blood by Automated count 7.4 % 3.0 - 8.0 [facility] Eosinophils/100 leukocytes in Blood by Automated count 8.1 % 0.0 - 7.0 H [facility] Basophils/100 leukocytes in Blood by Automated count 1.0 % 0.0 - 2.5 [facility] %IG 0.3 % 0.0 - 0.0 [facility] %NRBC 0.0 % 0.0 - 0.0 [facility] al Neutrophils [#/volume] in Blood by Automated count 2.79 10^3/uL 2.00 - 6.90 [facility] Lymphocytes [#/volume] in Blood by Automated count 2.26 10^3/uL 0.60 - 3.40 [facility] Monocytes [#/volume] in Blood by Automated count 0.45 10^3/uL 0.00 - 0.90 [facility] Eosinophils [#/volume] in Blood by Automated count 0.49 10^3/uL 0.00 - 0.70 [facility] Basophils [#/volume] in Blood by Automated count 0.06 10^3/uL 0.00 - 0.20 [facility] #IG 0.02 10^3/uL 0.00 - 0.10 [facility] ospital #NRBC 0.00 10^3/uL 0.00 - 0.00 [facility] H ospital MANUAL DIFF NOT INDICATED [facility] RBC MORPH NOT INDICATED [facility] spital ID Date Data Source [id number] 10/13/2019 12:00:00 AM EDT [facility] Imaging Ayush DENG Patient Name: SARAH [id number] Date of : [address] [address] Date of Exam: 10/13/2019PH#: Fax: [phone] EXAM: CHEST (2 VIEW) X-RAYCLINICAL INFORMATION: Pacemaker, fatigue.Two views.Comparison is 02/13/2015.The diffuse bilateral infiltrates identified on the prior study haveresolved. On the current study, the lung bennett are clear but appearhyperinflated. No nodules or masses are identified. Cardiac size isnormal. The sunday, mediastinum and skeletal structures are unremarkable.There is a triple lead pacemaker entering from the left. There are twoleads in the right ventricle and a single lead in the right atrium. Thisis unchanged. There is a fracture of one of the three leads at the levelof the subclavian vein. I am unable to determine with certainty preciselywhich lead is fractured because of superimposition of the wires, however, Isuspect it is one of the two right ventricular leads. This lead fractureis unchanged from the prior study.LOREN Sood/Salvador you for referring SARAH WANG to our office.Electronically Signed - GARRETT ROBB MD 10/14/19 10:24 Name Value Range Interpretation Code Description Data Ilene rce(s) Supporting Document(s) Procedure Social History Code Duration Value Status Description Data Source(s ) Smoking 2020 03:55:11 PM EDT Never smoked tobacco (findi ng) completed Never smoked tobacco (finding) [facility] (Heriberto Jaramillo MD [facility]) Smoking 08/22/2020 09:04:57 AM EDT Never smoked tobacco (findi ng) completed Never smoked tobacco (finding) [place] (Heriberto Jaramillo MD [facility]) Vital Signs ID Date Data Source UNK Name Value Range Interpretation Code Description Data Source(s) Systolic blood pressure 115 mm[Hg] 115 [facility]Hg[facility] Heart rate 96 /min 96 /min [facility] ([facility]) Diastolic blood pressure 72 mm[Hg] 72 mm[Hg] [facility] ([facility]) Body weight 106.00 [lb_av] 106.00 [lb_av] [facility] T ([facility]) Respiratory rate 18 /min 18 /min [facility] ( [facility]) Body weight 108.00 [lb_av] 108.00 [lb_av] [facility] ([facility]) Systolic blood pressure 122 mm[Hg] 122 mm[Hg] M [facility] ([facility]) Diastolic blood pressure 68 mm[Hg] 68 mm[Hg] [facility] ([facility]) Respiratory rate 18 /min 18 /min [facility] ( [facility]) Body weight 108.00 [lb_av] 108.00 [lb_av] [facility] ([facility]) Body weight 108.00 [lb_av] 108.00 [lb_av] [facility] ([facility]) Systolic blood pressure 118 mm[Hg] 118 mm[Hg] [facility] Diastolic blood pressure 68 mm[Hg] 68 mm[Hg] [facility] ([facility]) [facility]piratory rate 18 /min 18 /[facility] Body height 60 [in_i] 60 [in_i] [facility] (Kevin Baer MD) 5'0" Body weight 106.50 [lb_av] 106.50 [lb_av] [facility] T (Kevin Baer MD) Body mass index (BMI) [Ratio] 20.8 kg/m2 20.8 k g/m2 [facility] (Kevin Baer MD) Body temperature 97.5 [degF] 97.5 [degF] [facility] (Kevin Baer MD) Systolic blood pressure 110 mm[Hg] 110 mm[Hg] [facility] Diastolic blood pressure 61 mm[Hg] 61 mm[Hg] [facility] (Kevin Baer MD) Heart rate 75 /min 75 /min [facility] (Kevin Baer MD) Oxygen saturation in Arterial blood by Pulse oximetry 93 % 93 % [facility] (Kevin Baer MD) Oxygen saturation in Arterial blood by Pulse oximetry 98 % 98 % [facility] (Kevin Baer MD) Body height 60 [in_i] 60 [in_i] [facility] (Kevin Baer MD) 5'0" Body weight 107.00 [lb_av] 107.00 [lb_av] [facility] (Kevin Baer MD) Body mass index (BMI) [Ratio] 20.9 kg/m2 20.9 k g/m2 [facility] (Kevin Baer MD) Body temperature 97.7 [degF] 97.7 [degF] [facility] (Kevin Baer MD) Systolic blood pressure 105 mm[Hg] 105 mm[Hg] M [facility] (Kevin Baer MD) Diastolic blood pressure 55 mm[Hg] 55 mm[Hg] [facility] (Kevin Baer MD) Heart rate 84 /min 84 /min [facility] (Kevin Baer MD) Body weight 108.00 [lb_av] 108.00 [lb_av] [facility] T (Kevin Baer MD) Body height 60 [in_i] 60 [in_i] [facility] (Kevin Baer MD) 5'0" Body mass index (BMI) [Ratio] 21.1 kg/m2 21.1 k g/m2 [facility] (Kevin Baer MD) Heart rate 75 /min 75 /min [facility] (Kevin Baer MD) Oxygen saturation in Arterial blood by Pulse oximetry 98 % 98 % [facility] (Kevin Baer MD) Body temperature 97.9 [degF] 97.9 [degF] [facility] (Kevin Baer MD) Systolic blood pressure 115 mm[Hg] 115 mm[Hg] M [facility] (Kevin Baer MD) Diastolic blood pressure 65 mm[Hg] 65 mm[Hg] [facility] (Kevin Baer MD) Body height 60 [in_i] 60 [in_i] [facility] (Kevin Baer MD) 5'0" Diastolic blood pressure 57 mm[Hg] 57 mm[Hg] [facility] (Kevin Baer MD) Body temperature 98.2 [degF] 98.2 [degF] [facility] (Kevin Baer MD) Systolic blood pressure 94 mm[Hg] 94 mm[Hg] M [facility] (Kevin Baer MD) Heart rate 93 /min 93 /min [facility] (Kevin Baer MD) Oxygen saturation in Arterial blood by Pulse oximetry 97 % 97 % [facility] (Kevin Baer MD) Body weight 104.00 [lb_av] 104.00 [lb_av] [facility] (Kevin Baer MD) Body mass index (BMI) [Ratio] 20.3 kg/m2 20.3 k g/m2 [facility] (Kevin Baer MD) Respiratory rate 16 /min 16 /min [facility] ( Kevin Baer MD)
[2020-12-04] MEDS ORDERED: ULTR5TAB PO (05:52)
[2020-12-04] MEDS ORDERED: CVS5000S2 PO (05:52)
[2020-12-04] MEDS ORDERED: NOXI1TAB PO (05:52)
[2020-12-04] MEDS ORDERED: TREL1AER PO (05:52)
[2020-12-04] MEDS ORDERED: FLON1SPR NARES (05:52)
[2020-12-04] MEDS ORDERED: FISH1000 PO (05:52)
--- OUTSIDE RECORDS SUMMARY | 2020-12-04 07:32 | CCD ---
Author Author [facility] Organization [facility] Address Unknown Phone Unavailable Care Team Providers Care Mexican Food Cook Name Role Phone KIRSCHMAN, L IRCHARD SUPERINTENDENT MENAGERIE Unavailable Unavailable KIRSCHMAN, L RICHARD SUPERINTENDENT MENAGERIE Unavailable Unavailable KIRSCHMAN, L RICHARD SUPERINTENDENT MENAGERIE Unavailable Unavailable KIRSCHMAN, L RICHARD SUPERINTENDENT MENAGERIE Unavailable Unavailable KIRSCHMAN, L RICHARD SUPERINTENDENT MENAGERIE Unavailable Unavailable KIRSCHMAN, L RICHARD SUPERINTENDENT MENAGERIE Unavailable Unavailable KIRSCHMAN, L RICHARD SUPERINTENDENT MENAGERIE Unavailable Unavailable KIRSCHMAN, L RICHARD SUPERINTENDENT MENAGERIE Unavailable Unavailable KIRSCHMAN, L RICHARD SUPERINTENDENT MENAGERIE Unavailable Unavailable KIRSCHMAN, L RICHARD SUPERINTENDENT MENAGERIE Unavailable Unavailable KIRSCHMAN, L RICHARD SUPERINTENDENT MENAGERIE Unavailable Unavailable KIRSCHMAN, L RICHARD SUPERINTENDENT MENAGERIE Unavailable Unavailable KIRSCHMAN, L RICHARD SUPERINTENDENT MENAGERIE Unavailable Unavailable KIRSCHMAN, L RICHARD SUPERINTENDENT MENAGERIE Unavailable Unavailable KIRSCHMAN, L RICHARD SUPERINTENDENT MENAGERIE Unavailable Unavailable KIRSCHMAN, L RICHARD SUPERINTENDENT MENAGERIE Unavailable Unavailable KIRSCHMAN, L RICHARD SUPERINTENDENT MENAGERIE Unavailable Unavailable KIRSCHMAN, L RICHARD SUPERINTENDENT MENAGERIE Unavailable Unavailable KIRSCHMAN, L RICHARD SUPERINTENDENT MENAGERIE Unavailable Unavailable KIRSCHMAN, L RICHARD SUPERINTENDENT MENAGERIE Unavailable Unavailable KIRSCHMAN, L RICHARD SUPERINTENDENT MENAGERIE Unavailable Unavailable KIRSCHMAN, L RICHARD SUPERINTENDENT MENAGERIE Unavailable Unavailable KIRSCHMAN, L RICHARD SUPERINTENDENT MENAGERIE Unavailable Unavailable KIRSCHMAN, L RICHARD SUPERINTENDENT MENAGERIE Unavailable Unavailable KIRSCHMAN, L RICHARD SUPERINTENDENT MENAGERIE Unavailable Unavailable KIRSCHMAN, L RICHARD SUPERINTENDENT MENAGERIE Unavailable Unavailable KIRSCHMAN, L RICHARD SUPERINTENDENT MENAGERIE Unavailable Unavailable KIRSCHMAN, L RICHARD SUPERINTENDENT MENAGERIE Unavailable Unavailable KIRSCHMAN, L RICHARD SUPERINTENDENT MENAGERIE Unavailable Unavailable KIRSCHMAN, L RICHARD SUPERINTENDENT MENAGERIE Unavailable Unavailable KIRSCHMAN, L RICHARD SUPERINTENDENT MENAGERIE Unavailable Unavailable KIRSCHMAN, L RICHARD SUPERINTENDENT MENAGERIE Unavailable Unavailable KIRSCHMAN, L RICHARD SUPERINTENDENT MENAGERIE Unavailable Unavailable KIRSCHMAN, L RICHARD SUPERINTENDENT MENAGERIE Unavailable Unavailable KIRSCHMAN, L RICHARD SUPERINTENDENT MENAGERIE Unavailable Unavailable KIRSCHMAN, L RICHARD SUPERINTENDENT MENAGERIE Unavailable Unavailable KIRSCHMAN, L RICHARD SUPERINTENDENT MENAGERIE Unavailable Unavailable KIRSCHMAN, L RICHARD SUPERINTENDENT MENAGERIE Unavailable Unavailable KIRSCHMAN, L RICHARD SUPERINTENDENT MENAGERIE Unavailable Unavailable KIRSCHMAN, L RICHARD SUPERINTENDENT MENAGERIE Unavailable Unavailable KIRSCHMAN, L RICHARD SUPERINTENDENT MENAGERIE Unavailable Unavailable KIRSCHMAN, L RICHARD SUPERINTENDENT MENAGERIE Unavailable Unavailable KIRSCHMAN, L RICHARD SUPERINTENDENT MENAGERIE Unavailable Unavailable KIRSCHMAN, L RICHARD SUPERINTENDENT MENAGERIE Unavailable Unavailable KIRSCHMAN, L RICHARD SUPERINTENDENT MENAGERIE Unavailable Unavailable KIRSCHMAN, L RICHARD SUPERINTENDENT MENAGERIE Unavailable Unavailable KIRSCHMAN, L RICHARD SUPERINTENDENT MENAGERIE Unavailable Unavailable Luana ALMEIDA DPM Unavailable Unavailable [...] MAQBOOL KEVIN MD Unavailable Unavailable CARMINA, MAQBOOL EKVIN MD Unavailable Unavailable CARMINA, MAQBOOL KEVIN MD [...] Unavailable CARMINA, ESTEVAN BROWN MD Unavailable Unavailable Sabana Grande, Citlalli CLINICAL ACCOUNT MANAGER Unavailable Unavailable Sabana Grande, Citlalli CLINICAL ACCOUNT MANAGER Unavailable Unavailable Sabana Grande, Citlalli CLINICAL ACCOUNT MANAGER Unavailable Unavailable Sabana Grande, Citlalli CLINICAL ACCOUNT MANAGER Unavailable Unavailable Sabana Grande, Citlalli CLINICAL ACCOUNT MANAGER Unavailable Unavailable Sabana Grande, Citlalli CLINICAL ACCOUNT MANAGER Unavailable Unavailable Sabana Grande, Citlalli CLINICAL ACCOUNT MANAGER Unavailable Unavailable Sabana Grande, Citlalli CLINICAL ACCOUNT MANAGER Unavailable Unavailable Sabana Grande, Citlalli CLINICAL ACCOUNT MANAGER Unavailable Unavailable Sabana Grande, Citlalli CLINICAL ACCOUNT MANAGER Unavailable Unavailable Sabana Grande, Citlalli CLINICAL ACCOUNT MANAGER Unavailable Unavailable Sabana Grande, Citlalli CLINICAL ACCOUNT MANAGER Unavailable Unavailable Sabana Grande, Citlalli CLINICAL ACCOUNT MANAGER Unavailable Unavailable Sabana Grande, Citlalli CLINICAL ACCOUNT MANAGER Unavailable Unavailable Sabana Grande, Citlalli CLINICAL ACCOUNT MANAGER Unavailable Unavailable Sabana Grande, Citlalli CLINICAL ACCOUNT MANAGER Unavailable Unavailable Sabana Grande, Citlalli CLINICAL ACCOUNT MANAGER Unavailable Unavailable Sabana Grande, Citlalli CLINICAL ACCOUNT MANAGER Unavailable Unavailable Sabana Grande, Citlalli CLINICAL ACCOUNT MANAGER Unavailable Unavailable Sabana Grande, Citlalli CLINICAL ACCOUNT MANAGER Unavailable Unavailable Sabana Grande, Citlalli CLINICAL ACCOUNT MANAGER Unavailable Unavailable Sabana Grande, Citlalli CLINICAL ACCOUNT MANAGER Unavailable Unavailable Sabana Grande, Citlalli CLINICAL ACCOUNT MANAGER Unavailable Unavailable Sabana Grande, Citlalli CLINICAL ACCOUNT MANAGER Unavailable Unavailable Sabana Grande, Citlalli CLINICAL ACCOUNT MANAGER Unavailable Unavailable Sabana Grande, Citlalli CLINICAL ACCOUNT MANAGER Unavailable Unavailable Sabana Grande, Citlalli CLINICAL ACCOUNT MANAGER Unavailable Unavailable Sabana Grande, Citlalli CLINICAL ACCOUNT MANAGER Unavailable Unavailable Sabana Grande, Citlalli CLINICAL ACCOUNT MANAGER Unavailable Unavailable Sabana Grande, Citlalli CLINICAL ACCOUNT MANAGER Unavailable Unavailable Sabana Grande, Citlalli CLINICAL ACCOUNT MANAGER Unavailable Unavailable Sabana Grande, Citlalli CLINICAL ACCOUNT MANAGER Unavailable Unavailable Sabana Grande, Citlalli CLINICAL ACCOUNT MANAGER Unavailable Unavailable Sabana Grande, Citlalli CLINICAL ACCOUNT MANAGER Unavailable Unavailable Sabana GrandeAriella CLINICAL ACCOUNT MANAGER Unavailable Unavailable Sabana GrandeAriellaCitlalli CLINICAL ACCOUNT MANAGER Unavailable Unavailable TONTARSKI, G AYUSH PA Unavailable [...] AYUSH PA Unavailable Unavailable Lockerbie, S Virginia CLINICAL ACCOUNT MANAGER-C Unavailable Unavailable Lockerbie, S Virginia CLINICAL ACCOUNT MANAGER-C Unavailable Unavailable Lockerbie, S Virginia CLINICAL ACCOUNT MANAGER-C Unavailable Unavailable Lockerbie, S Virginia CLINICAL ACCOUNT MANAGER-C Unavailable Unavailable Lockerbie, S [place] CLINICAL ACCOUNT MANAGER-C Unavailable Unavailable Lockerbie, S [place] CLINICAL ACCOUNT MANAGER-C Unavailable Unavailable Lockerbie, S [place] CLINICAL ACCOUNT MANAGER-C Unavailable Unavailable Lockerbie, S [place] CLINICAL ACCOUNT MANAGER-C Unavailable Unavailable Lockerbie, S [place] CLINICAL ACCOUNT MANAGER-C Unavailable Unavailable Lockerbie, S [place] CLINICAL ACCOUNT MANAGER-C Unavailable Unavailable Lockerbie, S [place] CLINICAL ACCOUNT MANAGER-C Unavailable Unavailable Lockerbie, S [place] CLINICAL ACCOUNT MANAGER-C Unavailable Unavailable Lockerbie, S [place] CLINICAL ACCOUNT MANAGER-C Unavailable Unavailable Lockerbie, S [place] CLINICAL ACCOUNT MANAGER-C Unavailable Unavailable Lockerbie, S [place] CLINICAL ACCOUNT MANAGER-C Unavailable Unavailable Lockerbie, S [place] CLINICAL ACCOUNT MANAGER-C Unavailable Unavailable Lockerbie, S [place] CLINICAL ACCOUNT MANAGER-C Unavailable Unavailable Lockerbie, S [place] CLINICAL ACCOUNT MANAGER-C Unavailable Unavailable Lockerbie, S [place] CLINICAL ACCOUNT MANAGER-C Unavailable Unavailable Lockerbie, S [place] CLINICAL ACCOUNT MANAGER-C Unavailable Unavailable Lockerbie, S [place] CLINICAL ACCOUNT MANAGER-C Unavailable Unavailable Lockerbie, S [place] CLINICAL ACCOUNT MANAGER-C Unavailable Unavailable Lockerbie, S [place] CLINICAL ACCOUNT MANAGER-C Unavailable Unavailable Lockerbie, S [place] CLINICAL ACCOUNT MANAGER-C Unavailable Unavailable ALFRED, A SARAH DO Unavailable [...] Unavailable ALFRED, A SARAH DO Unavailable Unavailable LAFRED, A SARAH DO Unavailable Unavailable ALFRED, A [...] Unavailable CARMINA, MAQBOOL KEVIN MD Unavailable Unavailable CRAMINA, MAQBOOL KEVIN MD Unavailable Unavailable CARMINA, MAQBOOL [...] is protected by Article 27-F of the [facility] Public Health law. If you continue you may have access to information: Regarding HIV / AIDS; Provided by facilities licensed or operated by the [facility] Office of Mental Health; or Provided by the [facility] Office for People With Developmental Disabilities. If such information is present, then the following [facility] mandated warning applies: This information has been [...] law may result in a fine or long-term sentence or both. A general authorization for the release of medical or other information is NOT sufficient authorization for further disc losure. Allergies and Adverse Reactions Type Description Substance Reaction Status Data Source(s ) No Known Environmental Allergies No Known Environmental [facility] Drug allergy lactose intolerant lactose intolerant [facility] Family History Family Member Name Family Member Gender Family Member Status Date o f Status Description Data Source(s) Unknown Unknown Problem [facility] ([facility] Unknown Unknown Problem [facility] ([facility], ) Encounters Encounter Providers Location Date Indications Data Source(s ) Outpatient Attender: Katy Mosquera [facility] Main Office 11/07/2020 11:15:00 AM EDT [facility] Outpatient Attender: AYUSH WAY [facility] 10/09/2020 10:30:00 AM EDT MED[facility] (Kevin Baer MD) Outpatient Attender: RAINE ALMEIDA [facility] 08/10 01:45:00 PM EDT [facility] ([facility] <td ID="encounterTypeDescriptionID0">TRI AGE NON URGENT</td><td>Sarah Conde DO</td><td>Heriberto Ovalle MD [facility]</td><td>08/22/2020</td><td>8:03AM</td><td>8:48AM</td><td><content ID="encounterDiagnosisID0-0">Blepharitis Squamous</content>, <content ID="encounterDiagnosisID0-1">Dry Eye Syndrome</content>, <content ID="encounterDiagnosisID0-2">Ectropion</content>, <content ID="encounterDiagnosisID0-3">Epiphora</content></td>Outpatient Attender: SARAH Miller MD [facility] 08/22/2020 08:03:00 AM EDT - 08/22/2020 08:48:00 AM EDT EpiphoraEctropionBlepharitis SquamousEpiphoraEctropionBlepharitis SquamousDry Eye SyndromeDry Eye Syndrome [place] (Heriberto Jaramillo MD 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 Outpatient Attender: KEVIN BAER MD [facility] 06/15 11:00:00 AM EDT MED[facility] (Kevin Baer MD) Outpatient Attender: AYUSH WAY [facility] 06/14/2020 08:45:00 AM EDT MED[facility] (Kevin Baer MD) Outpatient Attender: RAINE ALMEIDA DPM [employer] Office 04/11 01:45:00 PM EDT [facility] ([facility] Outpatient Attender: KEVIN BAER MD [facility] 04/05 09:45:00 AM EST [facility] (Kevin Baer MD) Outpatient Attender: Katy Mosquera [facility] Main Office 02/21/2020 08:00:00 AM EST [facility] ([facility] Outpatient Attender: KEVIN BAER MD [facility] 02/01 10:15:00 AM EST [facility] (Kevin Baer MD) Outpatient Attender: AYUSH WAY [facility] 01/17/2020 07:30:00 AM EST [facility] (Kevin Baer MD) Outpatient Attender: RAINE ALMEIDA [facility] Office 12/12 12:45:00 PM EST [facility] ([facility] Outpatient Attender: KEVIN BAER MD [facility] 12/30 09:00:00 AM EST [facility] (Kevin Baer MD) Outpatient Attender: KEVIN BAER MDConsultant: RICHARD SHARMADYAN SUPERINTENDENT MENAGERIE 12/15/2019 11:06:00 AM EST - 12/15/2019 12:06:00 PM [facility] Outpatient Attender: KEVIN BAER MD [facility] 12/14 10:00:00 AM EST [facility] (Kevin Baer MD) Outpatient<td ID="encounterTypeDescripti onID1">5 Month Follow-Up</td><td>Sarah Conde DO</td><td>Heriberto Ovalle MD [facility]</td><td>12/01/2019</td><td>2:18PM</td><td>3:38PM</td><td><content ID="encounterDiagnosisID1-0">Pseudophakia</content>, <content ID="encounterDiagnosisID1-1">Vitreous Disorders Degeneration</content>, <content ID="encounterDiagnosisID1-2">Dry [...] Disorders DegenerationPseudophakia MICHELLE (Heriberto Jaramillo MD 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 10:00:00 AM EDT [facility] (Kevin Baer MD) Immunizations Vaccine Date Status Description Data Source(s) COVID-19 VACCINE Moderna 04/10/2020 12:00:00 AM EST completed [facility] Vaccine Series Complete: YESThis Data wa s Submitted to [facility] Via [employer]. COVID-19 VACCINE, MRNA-1273, LNP-S (MODERNA)/PF 04/10/2020 1 2:00:00 AM EST completed [facility] COVID-19 VACCINE, MRNA-1273, LNP-S (MODERNA)/PF 03/11/2020 1 2:00:00 AM EST completed [facility] COVID-19 VACCINE Moderna 03/10/2020 12:00:00 AM EST completed [facility] Vaccine Series Complete: NOThis Data was Submitted to [facility] Via [employer]. INFLUENZA VACCINE QUADRIVALENT (65 YR UP)/MF59 C.1/PF 10/23/2019 12:00:00 AM EDT completed [facility] Medications Medication Brand Name Start Date Product Form Dose Route Admi nistrative Instructions Pharmacy Instructions Status Indications Reaction Description Data Source(s) Fluticasone propionate 0.05 MG/ACTUAT Metered Dose Cornel[facility] 50 mcg/actuation FLUTICASONE PROPIONATE 11/21/2020 12:00:00 AM [...] propionate 0.05 MG/ACTUAT Metered Dose [facility] 50 mcg/actuation FLUTICASONE PROPIONATE 10/19/2020 12:00:00 AM [...] MG/ML / tobramycin 3 MG/ML Ophthalmic Suspension [place] (Heriberto Jaramillo MD [facility]) 50 mcg/actuation 08/09/2020 12:00:00 AM EDT spray,suspension [...] EACH NOSTRIL ONCE A DAY SOLD: 02/16/2020 [facility] Fluticasone propionate 0.05 MG/ACTUAT Metered Dose [facility] [place] 50 mcg/actuation FLUTICASONE PROPIONATE 02/15/2020 12:00:00 AM EST spray,suspension 16 SPRAY 2 SPRAYS IN EACH NOSTRIL ONCE A DAY SPRAY 2 SPRAYS IN EACH NOSTRIL ONCE A DAY SOLD: 09/27/2020 [facility] Trazodone Hydrochloride 50 MG Oral Tablet Trazodone [...] type / Coverage type Policy ID Covered democrat ID Covered democrat's relationship to patricia Policy Patricia Plan Information [facility] Part B [id number] Self [id number] [facility] Part B [id number] Self [id number] BS [place] [facility] FEDERAL [id number] SP [id number] [employer] BCBS [id number] Poonam [id number] [employer] BCBS [id number] P[place]am [id number] MEDICARE [id number] Poonam [id number] A MEDICARE [id number] SP [id number] MEDICARE [id number] SP [id number] A [facility] [employer]EE PROGRAM [id number] SP [id number] [employer] BC-BS PPO [id number] SP [id number] Medicare Medicare Primary [id number] Self [id number] [facility] Part B [id number] Self [id number] Medicare Medicare Primary [id number] Self [id number] Medicare Medicare Primary [id number] Self [id number] Medicare Medicare Primary [id number] Self [id number] [place] Primary [id number] Self [id number] [place] Medicare Primary [id number] Self [id number] [place] Medicare Primary [id number] Self [id number] Medicare [place] Medicare Primary [id number] Self [id number] Medicare [place]/[facility] Medicare Primary [id number] Self [id number] Medicare Medicare Primary [id number] Self [id number] [facility] FED[facility] B [id number] S [id number] [facility] B [id number] S [id number] MEDICARE -O/P [id number] 18 [id number] Medicare Medicare Primary [id number] Self [id number] [employer] BC-BS PPO [id number] SP [id number] MEDICARE [id number] SP [id number] A Medicare Medicare Primary [id number] Self [id number] MEDICARE [id number] SP [id number] A BS Federal Medigap Part B [id number] Self [id number] Medicare Medicare Primary [id number] Self MEDICARE [id number] SP [id number] A [employer] FEDERAL [id number] SP [id number] [facility] FEDERAL -CLINIC [id number] 18 [id number] MEDICARE PART A -CLINIC [id number] 18 [id number] A [id number] [facility] Other 0 [id number] Self 0 Medicare Part B [facility] Other 0 [id number] Self 0 BCBS [facility] Other 0 [id number] Self 0 Medicare Part B [facility] Other 0 [id number] Self 0 MEDICARE PART A -O/P [id number] 18 [id number] [facility] FEDERAL -O/P [id number] 18 [id number] MEDICARE PART A -O/P [id number] 18 [id number] MEDICARE C [id number] S [id number] BC BS [facility] FEDERAL B [id number] S [id number] MEDICARE C [id number] S [id number] A Problems, Conditions, and Diagnoses Code Display Name Description Problem Type Effective Dates Data Source(s) E8342 Hypomagnesemia Hypomagnesemia Diagnosis 06/15/2020 11:50: 00 AM [facility] N390 Urinary tract infection, site not specif ied Urinary tract infection, site not specified Diagnosis 06/15/2020 11:50:00 AM [facility] E039 Hypothyroidism, unspecified Hypothyroidism, unspecifie d Diagnosis 06/15/2020 11:50:00 AM [facility] D649 Anemia, unspecified Anemia, unspecified Diagnosis 0 06/15/2020 11:50:00 AM [facility] E119 Type 2 diabetes mellitus without complic ations Type 2 diabetes mellitus without complications Diagnosis 06/15/2020 11:50:00 AM EDT [facility] E785 Hyperlipidemia, unspecified Hyperlipidemia, unspecifie d Diagnosis 06/15/2020 11:50:00 AM [facility] K7689 Other specified diseases of liver Other specifie d diseases of liver Diagnosis 12/15/2019 11:06:00 AM [facility] J189 Pneumonia, unspecified organism Pneumonia, unspecified organism Diagnosis 12/15/2019 11:06:00 AM [facility] J440 Chronic obstructive pulmonar y disease with (acute) lower respiratory infection Chronic obstructive pulmonary disease wi th (acute) lower respiratory infection Diagnosis 12/15/2019 11:06:00 AM [facility] M109 Gout, unspecified Gout, unspecified Diagnosis 10/26/2019 03:29:[address] [facility] R0600 Dyspnea, unspecified Dyspnea, unspecified Diagnosis 10/26/2019 03:29:[address] [facility] 375.21 Epiphora Epiphora Problem 08/22/2020 12:00:00 AM ED T MICHELLE (Heriberto Jaramillo MD 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) 375.21 Epiphora Epiphora Problem 08/22/2020 12:00:00 AM ED T [facility] (Heriberto Jaramillo MD 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) Surgeries/Procedures Procedure Description Date Indications Data Source(s) DESTRUCTION BENIGN LESIONS UP TO 14 11/07/2020 12:00:0 0 AM EDT [facility] ([facility]) OFFICE OUTPATIENT VISIT 25 MINUTES 11/07/2020 12:00:00 AM EDT [facility] ([facility]) OFFICE OUTPATIENT VISIT 10 MINUTES 10/09/2020 12:00:00 AM EDT MED[facility] (Kevin Baer MD) OFFICE OUTPATIENT VISIT 10 MINUTES 08/28/2020 12:00:00 AM EDT [facility] ([facility] Chalazion removal (procedure) History of excision of a single chalazion of the left upper eyelid 08/22/2020 12:00:00 AM EDT [facility]LE (Bin Jaramillo MD [facility]) Surgical / procedural history Pacemaker put in in 1987, Pacemaker replaced 2015, Uterin Tumor Removed 1975 Surgical / procedural history Pacemaker put in in 1987, Pacemaker replaced 2015, Uterin Tumor Removed 197508/22/2020 12:00:00 AM EDT [facility]HELLE (Heriberto Jaramillo MD [facility]) Extracapsular extraction of lens (procedure) History o f extracapsular cataract extraction PCIOL Right Eye 08/08/2016, PCIOL Left Eye 07/25/2016 08/22/2020 12:00:00 AM EDT [facility]LE (Heriberto Jaramillo MD [facility]) DESTRUCTION BENIGN LESIONS UP TO 14 08/09/2020 12:00:0 0 AM EDT [facility] ([facility]) OFFICE OUTPATIENT VISIT 10 MINUTES 07/11/2020 12:00:00 AM EDT [facility] ([facility]) Shave Biopsy Of Skin, Single Lesion 07/05/2020 12:00:0 0 AM EDT [facility] ([facility]) OFFICE OUTPATIENT VISIT 25 MINUTES 07/05/2020 12:00:00 AM EDT [facility] ([facility]) OFFICE OUTPATIENT VISIT 25 MINUTES 06/15/2020 12:00:00 AM EDT [facility] (Kevin Baer MD) OFFICE OUTPATIENT VISIT 10 MINUTES 06/14/2020 12:00:00 AM EDT [facility] (Kevin Baer MD) DESTRUCTION PREMALIGNANT LESION 1ST 06/12/2020 12:00:0 0 AM EDT [facility] ([facility]) DESTRUCTION PREMALIGNANT LESION 2-14 EA 06/12/2020 12: 00:00 AM EDT [facility] ([facility]) OFFICE OUTPATIENT VISIT 10 MINUTES 05/01/2020 12:00:00 AM EDT [facility] ([facility] NON-INVAS PHYSIOLOGIC STD EXTREMITY ART 2 LEVEL 2020 12:00:00 AM EST [facility] (Kevin Baer MD) ACNE SURGERY 02/21/2020 12:00:00 AM EST M EDENT ([facility]) OFFICE OUTPATIENT VISIT 25 MINUTES 02/21/2020 12:00:00 AM EST [facility] ([facility]) Surgical / procedural history Pacemaker put in in 1987, Pacemaker replaced 2015, Uterin Tumor Removed 1975 Surgical / procedural history Pacemaker put in in 1987, Pacemaker replaced 2015, Uterin Tumor Removed 197512/01/2019 12:00:00 AM EDT MICHELLE (Heriberto Jaramillo MD [facility]) Extracapsular extraction of lens (procedure) History o f extracapsular cataract extraction PCIOL Right Eye 08/08/2016, PCIOL Left Eye 07/25/2016 12/01/2019 12:00:00 AM EDT MICHELLE (Heriberto Jaramillo MD [facility]) Intermediate Eye Exam Established Patient (Signi/Sep E joseph. & Man.) Intermediate Eye Exam Established Patient (Signi/Sep Eval. & Man.) 12/01/2019 12:00:00 AM EDT MICHELLE (Heriberto Jaramillo MD 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) MYOCARDIAL SPECT MULTIPLE STUDIES 11/10/2019 12:00:00 AM EDT [facility] (Kevin Baer MD) ECG ROUTINE ECG W/LEAST 12 LDS W/I&R 10/26/2019 12:00: 00 AM EDT [facility] (Kevin Baer MD) ECHO TTHRC R-T 2D W/WOM-MODE COMPL SPEC&COLR DOP 10/25 12:00:00 AM EDT [facility] (Kevin Baer MD) Results ID Date Data Source [id number] 07/11/2020 04:02:00 PM EDT [facility] ([facility]ition[facility]) Name Value Range Interpretation Code Description Data Ilene rce(s) Supporting Document(s) Laboratory test finding (navigational concept) Laboratory test result [facility] ([facility] Nurse [facility]) No further treatment necessary Thyrotropin [Units/volume] in Serum or Plasma 0.975 uIU/mL 0.450-4.50 0 [facility] ([facility] Nurse [facility]) No further treatment necessary ID Date Data Source [id number] 07/11/2020 02:47:00 PM EDT [facility] ([facility] Nurse [facility]) Name Value Range Interpretation Code Description Data Ilene rce(s) Supporting Document(s) Thyrotropin [Units/volume] in Serum or Plasma Laboratory test result [facility] ([facility]) ID Date Data Source [id number] 07/05/2020 03:47:00 PM [facility]) Name Value Range Interpretation Code Description Data Ilene rce(s) Supporting Document(s) Laboratory test finding (navigational concept) Laboratory test result [facility] ([facility] Nurse [facility]) ICD9 Code: L90.5 Protocol: lilo Clinical Text: [...] and multiple level sections were examined. CPT: 27381*1 CPT: 25573*1 CPT: 79942*1 Laboratory test finding (navigational concept) Laboratory test result [facility] ([facility] Nurse [facility]) ID Date Data Source [id number] 06/15/2020 11:57:00 AM EDT [facility]Kevin [facility] Name Value Range Interpretation Code Description Data Ilene rce(s) Supporting Document(s) Laboratory test finding (navigational concept) Laboratory test result [facility] (Kevin Baer MD) <content>_CULTURE URINE_</content>
<content>^$366223</content>
<content>^^587529</content>
<content>$$535657</content>
<content>^^921619</content>
<content>$$ 531763</content>
<content>$$056766</content>
<content>$$318004</content>
<content>$$ 671140</content>
<content>$$793123</content>
<content>$$923350</content>
<content> $$735735</content>
<content>$$722421</content>
<content>$$418305</conten t>
<content>$$926383</content>
<content>$$194661</content>
<content> $$693212</content>
<content>$$639416</content>
<content>$$354324</content>
<content>$$57985 0</content>
<content>$$194913</content>
<content>$$948268</content>
<content>$$903096</content>
<content>$$167022</content>
<content>$$174195</content>
<content>$$ 270988</content>
<content>$$347437</content>
<content>$$153034</content>
<content> ^^371690</content>
<content>$$900191</content>
<content>$$600494</conten t>
<content>$$919338</content>
<content></content>
<content>-- Continued on next page --</content>
<content>Patient: HARMEET Melgoza Order: [id number] Page 2</content>
<content>Culture: CULTURE URINE Status: Final</harmony nt>
<content> < /content>
<content></content>
<content></content>
<content>-- Continued on next page --</content>
<content>Patient: HARMEET Melgoza Order: [id number] Page 2</content>
<content>Culture: CULTURE URINE Status: Prelim</content>
<content> < /content>
<content></content>
<content>$$195569</content>
<content>$ $298601</content>
<content></content>
<content>REPORTED DATE/TIME: 06/20/2020 07:06</content>
<content>Culture: CULTURE [...]
<content></content>
<content></content>
<content> Patient: HARMEET Melgoza Order: [id number] Page 3</content>
<content>Culture: CULTURE URINE Status: Final</content>
[...] S S . . . . . .62919-1</content>
<content>Gentamicin S S . . . . . .267-5</content>
<content>Imipenem S S . . . . . .279-0</content>
<content>Levofloxacin S S . . . . . .45830-1</content>
<content>Meropenem S S . . . . . .6652-2</content>
<content>Nitrofurantoin S S . . . . . .363-2</content>
<content>Piperacillin/Tazobactam S S . . . . . .412-7</content>
<content>Tetracycline R R . . . . . .496-0</content>
<content>Tobramycin S S . . . . . .508-2</content>
<content>Trimethoprim/Sulfa R R . . . . . .516-5</content>
<content></content>
<content>P1 Test performed by: Antonio SHARP #: [id number]</content>
<content>[address]</content>
<content>[id number]</content>
<content>[place]ie [place] [address]</content>
<content>Fagot Heater Helper : Killian Galaviz MD NPI #:</content>
<content>Audio Video Mechanic :</content>
<content>06/19/20.0627.XMT.SENT REF</content>
<content>06/20/20.0747.XMT.SENT REF</content>
<content></content>
<content></content> ID Date Data Source [id number] 06/15/2020 11:57:00 AM EDT [facility] (Kevin Baer [...]
<content>Positive >1.09</content>
<content></content> ID Date Data Source [id number] 06/15/2020 11:57:00 AM EDT [facility] (Kevin Baer MD) Name Value Range Interpretation Code Description Data Ilene rce(s) Supporting Document(s) Cobalamin (Vitamin B12) [Mass/volume] in Serum or Plasma 1361 pg /mL 232-1245 Above high normal [facility] (Kevin Baer MD) Thyrotropin [Units/volume] in Serum or Plasma by Detec tion limit <= 0.005 mIU/L 0.81 uIU/mL 0.47-5.01 [facility] (Kevin Baer MD) ID Date Data Source [id number] 06/15/2020 11:57:00 AM EDT [facility] (Kevin Baer MD) Name Value Range Interpretation Code Description Data Ilene rce(s) Supporting Document(s) Laboratory test finding (navigational concept) Laboratory test result [facility] (Kevin Bear MD) URINALYSIS Laboratory test finding (navigational concept) [...] (Kevin Baer MD) ID Date Data Source [id number] 06/15/2020 11:57:00 AM EDT [facility] (Kevin Baer MD) Name Value Range Interpretation Code Description Data Ilene rce(s) Supporting Document(s) Thyroxine (T4) free [Mass/volume] in Serum or Plasma 1.43 ng/dL 0.93- 1.70 [facility] (Kevin Baer MD) ID Date Data Source [id number] 06/15/2020 11:57:00 AM EDT [facility] (Kevin Baer MD) Name Value Range Interpretation Code Description Data Ilene rce(s) Supporting Document(s) Laboratory test finding (navigational concept) Laboratory test result [facility] (Kevin Baer MD) LIPID PANEL Laboratory test finding (navigational concept) 136 mg/dL 35-160 [facility] (Kevin Baer MD) Laboratory test finding [...] AVERAGE 11.04 6.14 ID Date Data Source [id number] 06/15/2020 11:57:00 AM EDT [facility] (Kevin Baer [...] >32 mL/min Normal ID Date Data Source [id number] 06/15/2020 11:57:00 AM EDT [facility] (Kevin Baer [...] risk assessment.</content>
<content></content> ID Date Data Source [id number] 06/15/2020 11:57:00 AM EDT [facility] (Kevin Baer [...] 1 2.0-16.0 Below low normal [facility] (Kevin Bare MD) Laboratory test finding (navigational concept) 5.2 [...] (navigational concept) 48.3 % 37.0-80.0 [facility] (Kevin Bare MD) Laboratory test finding (navigational concept) 3.8 [...] (Kevin Baer MD) ID Date Data Source [id number] 06/15/2020 11:57:00 AM EDT [facility] (Kevin Baer MD) Name Value Range Interpretation Code Description Data Ilene rce(s) Supporting Document(s) Hemoglobin A1c/Hemoglobin.total in Blood 5.8 % 4.4-6.1 [facility] (Kevin Baer MD) {A1] {HB] ID Date Data Source [id number] 06/20/2020 07:47:[address] [facility] Name Value Range Interpretation Code Description Data Ilene rce(s) Supporting Document(s) CULTURE URINE [facility] sp[facility] _CULTURE URINE_$$[id number]$$964413$$188121$$707278$$177711$$734904$$952136$$899466$$437630$$ 208322$$153145$$355607$$245993$$765754$$174274$$930210$$216124$$337503$$427225$$ 552945$$034341$$004115$$459220$$090104$$298389$$600858$$468682 -- Continued on next page --Patient: HARMEET Melgoza Order: Page 2Culture: CULTURE URINE Status: Final ==== -- Continued on next page --Patient: HARMEET Melgoza Order: Page 2Culture: CULTURE URINE Status: Prelim =====$$[id number]$$146388SHPUXCYD DATE/TIME: 06/20/2020 07:06Culture: CULTURE URINE Status: FinalIsolate [...] 06/17/2020 23:58 ET Gram negative rodsUrine Culture,Comprehensive: A0Doewrdepwrc coli Flag: APatient: HARMEET Melgoza Order: Page [...] S S . . . . . .35862-9Bkwovirrah S S . . . . . .267-5Imipenem S S . . . . . .279-0Levofloxacin S S . . . . . .62043-4Togvmvahq S S . . . . . .6652- 2Nitrofurantoin S S . . . . . .363-2Piperacillin/Tazobactam S S . . . . . .412-7Tetracycline R R . . . . . .496-0Tobramycin S S . . . . . .508-2Trimethoprim/Sulfa R R . . . . . .516-5P1 Test performed by: [facility] Allie SHARP #: [id number] [address] [place] [address] [id number] [facility] [address]Ztyhizf Director : Killian Galaviz MD NPI #:Audio Video Mechanic : 06/19/2027.XMT.SENT REF 06/20/20.XMT.SENT REF ID Date Data Source [id number] 06/17/2020 04:36:[address] [facility] Name Value Range Interpretation Code Description Data Ilene rce(s) Supporting Document(s) Borrelia burgdorferi IgG+IgM Ab [Units/volume] in Serum <0.91 ISR 0. 00-0.90 [facility] Negative <0.91 Equivocal 0.91 - 1.09 Positive >1.09 Borrelia burgdorferi IgM Ab [Units/volume] in Serum by Immun oassay <0.80 index 0.00-0.79 [facility] Negative <0.80 Equivocal 0.80 - 1.19 Positive >1.19 IgM levels may peak at 3-6 weeks post infection, then gradually decline. ID Date Data Source [id number] 06/15/2020 01:50:00 PM [facility] Name Value Range Interpretation Code Description Data Ilene rce(s) Supporting Document(s) Thyrotropin [Units/volume] in Serum or Plasma by Detec tion limit <= 0.05 mIU/L 0.81 uIU/mL 0.47 - 5.01 [facility] ID Date Data Source [id number] 06/15/2020 01:26:[address] [facility] Name Value Range Interpretation Code Description Data Ilene rce(s) Supporting Document(s) Cobalamin (Vitamin B12) [Mass/volume] in Serum or Plasma 1361 PG /ML 232 - [address] [facility] ID Date Data Source [id number] 06/15/2020 01:16:00 PM [facility] Name Value Range Interpretation Code Description Data Ilene rce(s) Supporting Document(s) URINALYSIS [facility] jevon URINALYSIS SOURCE R [facility] COLOR yellow NORMAL: Yellow [facility] CLARITY clear NORMAL: Clear [facility] Specific gravity of Urine by Test strip 1.010 1.001 - 1.030 [facility] - [facility] Gl[facility] [Mass/volume] in Urine by Test strip NORM NORMAL: Negat kandy [facility] Bilirubin.total [Presence] in Urine by Test strip NEG NORMAL: Negative [facility] Ketones [Presence] in Urine by Test strip NEG NORMAL: Negative [facility] Protein [Mass/volume] in Urine by Test strip NEG NORMAL: Negat kandy [facility] Nitrite [Presence] in Urine by Test strip NEG NORMAL: Negative [facility] BLOOD NEG NORMAL: Negative [facility] Leukocyte esterase [Presence] in Urine by Test strip 25 RENNY L: Negative [facility] Urobilinogen [Mass/volume] in Urine by Test strip NOR less sania n 1.0 mg/dL [facility] MICROSCOPIC See Below [facility] ital WBC 0 - 1 NORMAL: NONE SEEN [facility] Erythrocytes [#/volume] in Urine by Test strip None Seen NORMAL: NON E SEEN [facility] EPITHELIAL FEW NORMAL: NONE SEEN [facility] Mucus [Presence] in Urine sediment by Light microscopy Trace NORMAL: NONE SEEN [facility] ID Date Data Source [id number] 06/15/2020 01:10:[address] [facility] Name Value Range Interpretation Code Description Data Ilene rce(s) Supporting Document(s) Thyroxine (T4) free index in Serum or Plasma by calculation 1.43 NG/DL 0.93 - 1.70 [facility] ID Date Data Source [id number] 06/15/2020 01:00:[address] [facility] Name Value Range Interpretation Code Description Data Ilene rce(s) Supporting Document(s) C reactive protein [Mass/volume] in Serum or Plasma by High sensitivity method 0.57 MG/L 1.00 - 3.[address] [facility] CDC/S HS-CRP CUT-OFF: RELATIVE RISK: <1.0 mg/L Low 1.0 - 3.0 mg/L Average >3.0 mg/L High Optimally, the average of HS-CRP results repeated two weeks apart should be used for risk assessment. ID Date Data Source [id number] 06/15/2020 01:00:[address] [facility] Name Value Range Interpretation Code Description Data Ilene rce(s) Supporting Document(s) [facility] LIP[facility] Cholesterol [Mass/volume] in Serum or Plasma 189 MG/DL 131 - 200 [facility] Deprecated Triglyceride [Mass/volume] in Serum or Plasma 136 MG/DL 3 5 - 160 [facility] HDL 76 MG/DL 29 - 86 [facility] Cholesterol in LDL [Mass/volume] in Serum or Plasma by Direc t assay 101 mg/dL 65 - 175 [facility] Cholesterol.total/Cholesterol in HDL [Mass Ratio] in Serum o r Plasma 2.5 3.2 - 4.[address] [facility] LDL/HDL 1.33 1.47 - 3.22 L [facility] ital CVE RISK CHOL/HDL LDL/HDLMEN: 1/2 AVERAGE 3.43 1.00 AVERAGE 4.97 3.55 2X AVERAGE 9.55 6.25 3X AVERAGE 23.99 7.99WOMEN: 1/2 AVERAGE 3.27 1.47 AVERAGE 4.44 3.22 2X AVERAGE 7.05 5.03 3X AVERAGE 11.04 6.14 ID Date Data Source [id number] 06/15/2020 01:00:[address] [facility] Name Value Range Interpretation Code Description Data Ilene rce(s) Supporting Document(s) COMPREHENSIVE METABOLIC PANEL [facility] COMPREHENSIVE METABOLIC PANEL Sodium [Moles/volume] in Serum or Plasma 139 mEq/L 134 - 153 [facility] Potassium [Moles/volume] in Serum or Plasma 4.6 mEq/L 3.6 - 5.0 [facility] Chloride [Moles/volume] in Serum or Plasma 103 mEq/L 98 - 107 [facility] Carbon dioxide, total [Moles/volume] in Serum or Plasma 26 MEQ/L 22 - 30 [facility] Glucose [Mass/volume] in Serum or Plasma 105 MG/DL 70 - [address] [facility] BUN 20 MG/DL 7 - 21 [facility] Creatinine [Mass/volume] in Serum or Plasma 0.9 MG/DL 0.7 - 1.5 [facility] BUN/CREAT 22 8 - 27 [facility] al Protein [Mass/volume] in Serum or Plasma 7.4 G/DL 6.3 - 8.2 [facility] Albumin [Mass/volume] in Serum or Plasma 4.4 G/DL 3.9 - 5.0 [facility] Globulin [Mass/volume] in Serum by calculation 3.0 GM/DL 2.4 - 3.2 [facility] A/G RATIO 1.5 0.8 - 2.0 [facility] Calcium [Mass/volume] in Serum or Plasma 10.0 MG/DL 8.4 - 10.2 [facility] Bilirubin.total [Mass/volume] in Serum or Plasma <0.7 MG/DL 0.2 - 1.3 [facility] Alkaline phosphatase [Enzymatic activity/volume] in Serum or Plasma 51 U/L 38 - 126 [facility] Aspartate aminotransferase [Enzymatic activity/volume] in Serum or Plasma 15 U/L 5 - 40 [facility] Alanine aminotransferase [Enzymatic activity/volume] in Seru m or Plasma 9 U/L 7 - 56 [facility] Anion gap 3 in Serum or Plasma 10.0 mmol/L 8.0 - 16.0 [facility] AGE 84 yrs [facility] al NON-AA GFR >60 mL/min [facility] ital AFR AMER GFR >60 [facility] pital Male GFR In terprentation 20-49 yrs [...] >32 mL/min Normal ID Date Data Source [id number] 06/15/2020 12:55:[address] [facility] Name Value Range Interpretation Code Description Data Ilene rce(s) Supporting Document(s) Magnesium [Mass/volume] in Serum or Plasma 2.0 MG/DL 1.7 - 2.2 [facility] ID Date Data Source [id number] 06/15/2020 12:55:[address] [facility] Name Value Range Interpretation Code Description Data Ilene rce(s) Supporting Document(s) Iron [Mass/volume] in Serum or Plasma 74 UG/DL 42 - 135 [facility] ID Date Data Source [id number] 06/15/2020 12:30:[address] [facility] Name Value Range Interpretation Code Description Data Ilene rce(s) Supporting Document(s) CBC W/AUTOMATED DIFF [facility] COMPLETE BLOOD COUNT Leukocytes [#/volume] in Blood by Automated count 5.2 10^3/uL 4.2 - [address] [facility] Erythrocytes [#/volume] in Blood by Automated count 3.55 10^6/uL 4. 20 - 5.[address] [facility] Hemoglobin [Mass/volume] in Blood 11.5 g/dL 12.0 - 16.[address] [facility] Hematocrit [Volume Fraction] of Blood by Automated count 35.1 % 3 7.0 - 47.[address] [facility] Erythrocyte mean corpuscular volume [Entitic volume] by Auto mated count 98.9 fL 81.0 - 101 [facility] Erythrocyte mean corpuscular hemoglobin [Entitic mass] by Automated count 32.4 pg 27.0 - 34.0 [facility] Erythrocyte mean corpuscular hemoglobin concentration [Mass/volume] by Automated count 32.8 g/dL 31.0 - 36.0 [facility] Erythrocyte distribution width [Ratio] by Automated count 13.9 % 11.5 - 14.5 [facility] Platelets [#/volume] in Blood by Automated count 238 10^3/uL 150 - [address] [facility] Platelet mean volume [Entitic volume] in Blood by Automated count 8.5 fL 7.4 - 10.4 [facility] Neutrophils/100 leukocytes in Blood by Automated count 48.3 % 37. 0 - 80.0 [facility] Lymphocytes/100 leukocytes in Blood by Manual count 40.9 % 25.0 - 40.[address] [facility] Monocytes/100 leukocytes in Blood by Automated count 5.6 % 3.0 - 8.0 [facility] Eosinophils/100 leukocytes in Blood by Automated count 3.8 % 0.0 - 7.0 [facility] Basophils/100 leukocytes in Blood by Automated count 1.2 % 0.0 - 2.5 [facility] %IG 0.2 % 0.0 - 0.0 [facility] %NRBC 0.0 % 0.0 - 0.0 [facility] Neutrophils [#/volume] in Blood by Automated count 2.52 10^3/uL 2.00 - 6.90 [facility] Lymphocytes [#/volume] in Blood by Automated count 2.13 10^3/uL 0.60 - 3.40 [facility] Monocytes [#/volume] in Blood by Automated count 0.29 10^3/uL 0.00 - 0.90 [facility] Eosinophils [#/volume] in Blood by Automated count 0.20 10^3/uL 0.00 - 0.70 [facility] Basophils [#/volume] in Blood by Automated count 0.06 10^3/uL 0.00 - 0.20 [facility] #IG 0.01 10^3/uL 0.00 - 0.10 [facility] #NRBC 0.00 10^3/uL 0.00 - 0.00 [facility] MANUAL DIFF NOT INDICATED [facility] RBC MORPH NOT INDICATED [facility] ID Date Data Source [id number] 06/15/2020 12:17:[address] [facility] Name Value Range Interpretation Code Description Data Ilene rce(s) Supporting Document(s) Hemoglobin A1c/Hemoglobin.total in Blood 5.8 % 4.4 - 6.1 [facility] {A1]{HB] ID Date Data Source [id number] 12/16/2019 12:09:00 PM EST [facility] [address] [place] [address] PHONE: [phone] FAX: [phone] Name .................. : HARMEET SARAH T Acct Number.................. : [id number] ROOM. ................. : Number ................... : [id number] Stay type ............. : O/P Discharge Date......... ... : 12/15/19 Admit Date .... ..... : 12/15/19 Admit Phys .................... : CARMINA REYES Date of ....... : 1935 Family Phys ................... : MARY ELLEN Phone .................. : [phone] Age ................................ : 84 Film# .................. .:[id number] Sex ................................. : F Unsigned transcriptions are preliminary reports and do not represent a medical or legal document CT CTA CHEST NON-CORONARY W C [id number] COMPLETE:12/15/19 12:04 BEM 59839 (REASON FOR EXAM: PE CT ANGIOGRAM OF [...] 00:03, Dictation Date: Page [address] [facility] [address] [place] [address] PHONE: [phone] FAX: [phone] Name .................. : HARMEET Melgoza Acct Number.................. : [id number] ROOM. ................. : MR Number ................... : [id number] Stay type ............. : O/P Discharge Date......... ... : 12/15/19 Admit Date ......... : 12/15/19 Admit Phys .................... : CARMINA REYES Date of ....... : 1935 Family Phys ................... : Terranova Phone .................. : [phone] Age ................................ : 84 Film# .................. .:[id number] Sex ................................. : F Unsigned transcriptions are preliminary reports and do not represent a medical or legal document CT CTA CHEST NON-CORONARY W C [id number] COMPLETE:12/15/19 12:04 [place] [id number] (REASON FOR EXAM: PE Copy for: CARMINA BROWN via modem Copy for: MARY ELLEN RAMOS via modem Copy for: [address] [place] [address] REC Page 2 of 2 Name Value Range Interpretation Code Description Data Ilene rce(s) Supporting Document(s) ID Date Data Source [id number] 10/26/2019 05:39:00 PM EDT [facility] Value Range Interpretation Code Description Data Ilene rce(s) Supporting Document(s) Thyrotropin [Units/volume] in Serum or Plasma by Detec tion limit <= 0.05 mIU/L 2.29 uIU/mL 0.47 - 5.01 [facility] ID Date Data Source [id number] 10/26/2019 05:39:00 PM EDT [facility] Value Range Interpretation Code Description Data Ilene rce(s) Supporting Document(s) BNP 1396 PG/ML 0 - 450 H [facility] j[facility]on ID Date Data Source [id number] 10/26/2019 05:39:00 PM EDT [facility] Value Range Interpretation Code Description Data Ilene rce(s) Supporting Document(s) Cobalamin (Vitamin B12) [Mass/volume] in Serum or Plasma 1311 PG /ML 232 - [address] [facility] ID Date Data Source [id number] 10/26/2019 05:39:00 PM EDT [facility] Value Range Interpretation Code Description Data Ilene rce(s) Supporting Document(s) Thyroxine (T4) free index in Serum or Plasma by calculation 1.48 NG/DL 0.93 - 1.70 [facility] ID Date Data Source [id number] 10/26/2019 05:39:00 PM EDT [facility] Value Range Interpretation Code Description Data Ilene rce(s) Supporting Document(s) Urate [Mass/volume] in Serum or Plasma 4.9 MG/DL 2.5 - 8.5 [facility] ID Date Data Source [id number] 10/26/2019 05:39:00 PM EDT [facility] Value Range Interpretation Code Description Data Ilene rce(s) Supporting Document(s) Magnesium [Mass/volume] in Serum or Plasma 1.9 MG/DL 1.7 - 2.2 [facility] ID Date Data Source [id number] 10/26/2019 05:39:[address] [facility] Name Value Range Interpretation Code Description Data Ilene rce(s) Supporting Document(s) CVE PANEL [facility] al LIPID PANEL Cholesterol [Mass/volume] in Serum or Plasma 186 MG/DL 131 - 200 [facility] Deprecated Triglyceride [Mass/volume] in Serum or Plasma 105 MG/DL 3 5 - 160 [facility] HDL 73 MG/DL 29 - 86 [facility] al Cholesterol in LDL [Mass/volume] in Serum or Plasma by Direc t assay 101 mg/dL 65 - 175 [facility] Cholesterol.total/Cholesterol in HDL [Mass Ratio] in Serum o r Plasma 2.5 3.2 - 4.[address] [facility] LDL/HDL 1.38 1.47 - 3.22 L [facility] ital CVE RISK CHOL/HDL LDL/HDLMEN: 1/2 AVERAGE 3.43 1.00 AVERAGE 4.97 3.55 2X AVERAGE 9.55 6.25 3X AVERAGE 23.99 7.99WOMEN: 1/2 AVERAGE 3.27 1.47 AVERAGE 4.44 3.22 2X AVERAGE 7.05 5.03 3X AVERAGE 11.04 6.14 ID Date Data Source [id number] 10/26/2019 05:39:[address] [facility] Name Value Range Interpretation Code Description Data Ilene rce(s) Supporting Document(s) COMPREHENSIVE METABOLIC PANEL [facility] COMPREHENSIVE METABOLIC PANEL Sodium [Moles/volume] in Serum or Plasma 141 mEq/L 134 - 153 [facility] Potassium [Moles/volume] in Serum or Plasma 4.3 mEq/L 3.6 - 5.0 [facility] Chloride [Moles/volume] in Serum or Plasma 103 mEq/L 98 - 107 [facility] Carbon dioxide, total [Moles/volume] in Serum or Plasma 28 MEQ/L 22 - 30 [facility] Glucose [Mass/volume] in Serum or Plasma 97 MG/DL 65 - 110 [facility] BUN 18 MG/DL 7 - 21 [facility] Creatinine [Mass/volume] in Serum or Plasma 1.0 MG/DL 0.7 - 1.5 [facility] BUN/CREAT 18 8 - 27 [facility] Protein [Mass/volume] in Serum or Plasma 7.3 G/DL 6.3 - 8.2 [facility] Albumin [Mass/volume] in Serum or Plasma 4.4 G/DL 3.9 - 5.0 [facility] Globulin [Mass/volume] in Serum by calculation 2.9 GM/DL 2.4 - 3.2 [facility] A/G RATIO 1.5 0.8 - 2.0 [facility] Calcium [Mass/volume] in Serum or Plasma 9.3 MG/DL 8.4 - 10.2 [facility] Bilirubin.total [Mass/volume] in Serum or Plasma <0.7 MG/DL 0.2 - 1.3 [facility] Alkaline phosphatase [Enzymatic activity/volume] in Serum or Plasma 52 U/L 38 - 126 [facility] Aspartate aminotransferase [Enzymatic activity/volume] in Serum or Plasma 19 U/L 5 - 40 [facility] Alanine aminotransferase [Enzymatic activity/volume] in Seru m or Plasma 12 U/L 7 - 56 [facility] Anion gap 3 in Serum or Plasma 10.0 mmol/L 8.0 - 16.0 [facility] AGE 84 yrs [facility] NON-AA GFR 56 mL[facility] A[facility] AMER GFR >60 [facility] Male GFR In terprentation 20-49 [...] >32 mL/min Normal ID Date Data Source [id number] 10/26/2019 05:39:[address] [facility] Name Value Range Interpretation Code Description Data Ilene rce(s) Supporting Document(s) Iron [Mass/volume] in Serum or Plasma 87 UG/DL 42 - 135 [facility] ID Date Data Source [id number] 10/26/2019 05:38:[address] [facility] Name Value Range Interpretation Code Description Data Ilene rce(s) Supporting Document(s) Hemoglobin A1c/Hemoglobin.total in Blood 5.5 % 4.4 - 6.1 [facility] {A1]{HB] ID Date Data Source [id number] 10/26/2019 04:05:[address] [facility] Name Value Range Interpretation Code Description Data Ilene rce(s) Supporting Document(s) Fibrin D-dimer FEU [Mass/volume] in Platelet poor plasma 0.39 ug /mL 0.27 - 0.50 [facility] ID Date Data Source [id number] 10/26/2019 03:53:[address] [facility] Name Value Range Interpretation Code Description Data Ilene rce(s) Supporting Document(s) CBC W/AUTOMATED DIFF [facility] COMPLETE BLOOD COUNT Leukocytes [#/volume] in Blood by Automated count 6.1 10^3/uL 4.2 - [address] [facility] Erythrocytes [#/volume] in Blood by Automated count 3.67 10^6/uL 4. 20 - 5.[address] [facility] Hemoglobin [Mass/volume] in Blood 11.4 g/dL 12.0 - 16.[address] [facility] Hematocrit [Volume Fraction] of Blood by Automated count 35.4 % 3 7.0 - 47.[address] [facility] Erythrocyte mean corpuscular volume [Entitic volume] by Auto mated count 96.5 fL 81.0 - 101 [facility] Erythrocyte mean corpuscular hemoglobin [Entitic mass] by Automated count 31.1 pg 27.0 - 34.0 [facility] Erythrocyte mean corpuscular hemoglobin concentration [Mass/volume] by Automated count 32.2 g/dL 31.0 - 36.0 [facility] Erythrocyte distribution width [Ratio] by Automated count 13.5 % 11.5 - 14.5 [facility] Platelets [#/volume] in Blood by Automated count 213 10^3/uL 150 - [address] [facility] Platelet mean volume [Entitic volume] in Blood by Automated count 8.3 fL 7.4 - 10.4 [facility] Neutrophils/100 leukocytes in Blood by Automated count 46.0 % 37. 0 - 80.0 [facility] Lymphocytes/100 leukocytes in Blood by Manual count 37.2 % 25.0 - 40.0 [facility] Monocytes/100 leukocytes in Blood by Automated count 7.4 % 3.0 - 8.0 [facility] Eosinophils/100 leukocytes in Blood by Automated count 8.1 % 0.0 - 7.[address] [facility] Basophils/100 leukocytes in Blood by Automated count 1.0 % 0.0 - 2.5 [facility] %IG 0.3 % 0.0 - [facility].0 [facility] %[facility] 0.0 % 0.0 - 0.0 [facility] al Neutrophils [#/volume] in Blood by Automated count 2.79 10^3/uL 2.00 - 6.90 [facility] Lymphocytes [#/volume] in Blood by Automated count 2.26 10^3/uL 0.60 - 3.40 [facility] Monocytes [#/volume] in Blood by Automated count 0.45 10^3/uL 0.00 - 0.90 [facility] Eosinophils [#/volume] in Blood by Automated count 0.49 10^3/uL 0.00 - 0.70 [facility] Basophils [#/volume] in Blood by Automated count 0.06 10^3/uL 0.00 - 0.20 [facility] #IG 0.02 10^3/uL 0.00 - 0.10 [facility] ospital #NRBC 0.00 10^3/uL 0.00 - 0.00 [facility] MANUAL DIFF NOT INDICATED [facility] RBC MORPH NOT INDICATED [facility] spital ID Date Data Source [id number] 10/13/2019 12:00:00 AM EDT [facility] oly Imaging Ayush DENG Patient Name: SARAH [id number] Date of : [address] [address] Date of Exam: 10/13/2019PH#: Fax: [phone] EXAM: [...] tobacco (finding) MICHELLE (Heriberto Jaramillo MD [facility]) Smoking 08/22/2020 09:04:57 AM EDT Never smoked tobacco (findi ng) completed Never smoked tobacco (finding) [place] (Heriberto Jaramillo MD [facility]) Vital Signs ID Date Data Source UNK Name Value Range Interpretation Code Description Data Source(s) Systolic blood pressure 115 mm[Hg] 115 [facility]Hg[facility] Diastolic blood pressure 72 mm[Hg] 72 mm[Hg] [facility] ([facility]) Heart rate 96 /min 96 /[facility] Body weight 106.00 [lb_av] 106.00 [lb_av] MEDEN T ([facility]) Respiratory rate 18 /min 18 /min [facility] ( [facility]) Body weight 108.00 [lb_av] 108.00 [lb_av] MEDEN T ([facility]) Systolic blood pressure 122 mm[Hg] 122 mm[Hg] [facility] Diastolic blood pressure 68 mm[Hg] 68 mm[Hg] [facility] ([facility]) Respiratory rate 18 /min 18 /min [facility] ( [facility]) Body weight 108.00 [lb_av] 108.00 [lb_av] MEDEN T ([facility]) Body weight 108.00 [lb_av] 108.00 [lb_av] MEDEN T ([facility]) Systolic blood pressure 118 mm[Hg] 118 mm[Hg] [facility] Diastolic blood pressure 68 mm[Hg] 68 mm[Hg] [facility] ([facility]) Respiratory rate 18 /min 18 /min [facility] Body height 60 [in_i] 60 [in_i] [facility]Kevin Baer [facility] 5'0" Body weight 106.50 [lb_av] 106.50 [lb_av] MEDEN T (Kevin Baer MD) Body mass index (BMI) [Ratio] 20.8 kg/m2 20.8 k g/m2 [facility] (Kevin Baer MD) Body temperature 97.5 [degF] 97.5 [degF] LILIANENT (Kevin Baer MD) Systolic blood pressure 110 mm[Hg] 110 mm[Hg] [facility]Kevin [facility] Diastolic blood pressure [...] [in_i] [facility] (Kevin Baer MD) 5'0" Body temperature 98.2 [degF] 98.2 [degF] [facility] (Kevin Baer MD) Diastolic blood pressure 57 mm[Hg] 57 mm[Hg] [facility] (Kevin Baer MD) Body weight 104.00 [lb_av] 104.00 [lb_av] MEDEN T (Kevin Bear MD) Heart rate 93 /min 93 /min [facility] (Kevin Baer MD) Oxygen saturation in Arterial blood by Pulse oximetry 97 % 97 % [facility] (Kevin Baer MD) Systolic blood pressure 94 mm[Hg] 94 mm[Hg] M EDENT (Kevin Baer MD) Body mass index (BMI) [Ratio] 20.3 kg/m2 20.3 k g/m2 [facility] (Kevin Baer MD) Respiratory rate 16 /min 16 /min [facility] ( Kevin Baer MD)
[2020-12-04] MEDS ORDERED: GI COCKTAIL 50ML BTL(HYOSCYAMINE/MAALOX/LIDOCAINE VISCOUS)(1:3:1) PO ONE (07:50)
[2020-12-04 08:00] LABS: BASO # 0.1 10^3/uL (0.0-0.2); BASO % 1.2 % (0.0-1.0); EOS # 0.9 10^3/uL (0.0-0.5); EOS % 15.4 % (0.0-3.0); HEMATOCRIT 35.9 % (36.0-47.0); HEMOGLOBIN 11.3 g/dl (12.0-15.5); LYMPH # 2.4 10^3/uL (1.5-5.0); LYMPH % 41.9 % (24.0-44.0); MEAN CORPUSCULAR HEMOGLOBIN 31.7 pg (27.0-33.0); MEAN CORPUSCULAR HGB CONC 31.5 g/dl (32.0-36.5); MEAN CORPUSCULAR VOLUME 100.8 fl (80.0-96.0); MONO # 0.5 10^3/uL (0.0-0.8); NEUTROPHILS # 1.8 10^3/uL (1.5-8.5); NEUTROPHILS % 32.1 % (36.0-66.0); PLATELET COUNT, AUTOMATED 220 10^3/uL (150-450); RED BLOOD COUNT 3.56 10^6/uL (4.00-5.40); WHITE BLOOD COUNT 5.7 10^3/uL (4.0-10.0)
--- NOTE | 2020-12-04 08:16 | REP ---
INDICATION: CHEST PAIN. COMPARISON: Portable chest, 02/01/2015 TECHNIQUE: Sitting AP portable chest image was obtained. FINDINGS: The lungs are clear. There is no lobar consolidation or pleural effusion. The heart borders and mediastinum are normal. 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 The upper abdominal bowel gas pattern is normal. There are no bony abnormalities. IMPRESSION: No evidence of acute cardiopulmonary pathology. Other findings as noted. <Electronically signed by Kye Albert > 12/04/20 [id number]
[2020-12-04 08:21] LABS: ALBUMIN 3.6 GM/DL (3.2-5.2); BILIRUBIN,DIRECT 0.1 MG/DL (0.0-0.2); BILIRUBIN,TOTAL 0.4 MG/DL (0.2-1.0); CALCIUM LEVEL 9.7 MG/DL (8.8-10.2); CREATININE FOR GFR 1.08 MG/DL (0.55-1.30); GLOMERULAR FILTRATION RATE 51.5 (>32); POTASSIUM SERUM 4.8 MEQ/L (3.5-5.1); TOTAL PROTEIN 7.3 GM/DL (6.4-8.2)
[2020-12-04 08:45] LABS: CK-MB VALUE MASS 1.3 NG/ML (<3.6); CPK CREATINE PHOSPHOKINASE 73 U/L (26-192); MB/CK RELATIVE INDEX 1.78 (< OR =4); TROPONIN I < 0.02 NG/ML (< 0.10)
[2020-12-04 09:02] VITALS: BP 117/56
--- NOTE | 2020-12-04 18:22 | ECGEPIP ---
[facility] - ED Test Date: 2020-12-04 Pat Name: SARAH GA Department: Room: - Gender: Female [employer]: DEMETRI : 1935 Requested By: ROSS Teran PA-C Order Number: [id number] Reading MD: Itzel Orozco Measurements Intervals [place] Rate: 66 P: 77 FL: 148 QRS: -72 QRSD: 162 T: 85 QT: 474 QTc: 496 Interpretive Statements Atrial-sensed ventricular-paced rhythm decreased rate 02/01/15 Electronically Signed on 12-04-2020 18:22:23 EDT by Itzel Orozco
== END 2020-12-04 09:05 | disposition home or self-care (01) ==
LOC: M ED 05:40
DX: R10.13 Epigastric pain (principal); R79.9 Abnormal finding of blood chemistry, unspecified; Z95.0 Presence of cardiac pacemaker; E73.9 Lactose intolerance, unspecified; Z78.0 Asymptomatic menopausal state

== ENCOUNTER → 2021-08-02 | Outpatient (CLI) | payer MEDICARE, BC ==
[~2021-08-02] MED LIST changes: +CVS5000S2 PO; +FISH1000 PO; +FLON1SPR NARES; +NOXI1TAB PO; +TREL1AER PO; +ULTR5TAB PO
== END ==
LOC: M WHC 12:29
PROVIDERS: ATTEND Internal Medicine Cardiovascular Disease
DX: Z12.31 Encounter for screening mammogram for malignant neoplasm of breast (principal)

== ENCOUNTER 2021-12-13 11:35 | Inpatient (IN) | payer MEDICARE, BC ==
[~2021-12-13] VITALS: Ht 152.4 cm; Wt 49.4 kg
[2021-12-13 14:59] LABS: VENOUS BASE EXCESS -2.3 (-2.0-2.0); VENOUS HCO3 22.8 MEQ/L (23.0-27.0); VENOUS O2 SATURATION 97.4 % (60.0-80.0); VENOUS PARTIAL PRESSURE CO2 40.7 mmHg (38.0-50.0); VENOUS PARTIAL PRESSURE O2 104.6 mmHg (30.0-50.0); VENOUS PH 7.367 UNITS (7.330-7.430); VENOUS STANDARD HCO3 22.5 MEQ/L; VENOUS TOTAL CO2 24.1 MEQ/L (24.0-28.0)
[2021-12-13 15:06] LABS: BASO # 0.1 10^3/uL (0.0-0.2); BASO % 0.3 % (0.0-1.0); EOS # 0.1 10^3/uL (0.0-0.5); EOS % 0.4 % (0.0-3.0); HEMATOCRIT 34.2 % (36.0-47.0); HEMOGLOBIN 10.4 g/dl (12.0-15.5); LYMPH # 1.1 10^3/uL (1.5-5.0); LYMPH % 5.6 % (24.0-44.0); MEAN CORPUSCULAR HEMOGLOBIN 30.5 pg (27.0-33.0); MEAN CORPUSCULAR HGB CONC 30.4 g/dl (32.0-36.5); MEAN CORPUSCULAR VOLUME 100.3 fl (80.0-96.0); MONO # 1.2 10^3/uL (0.0-0.8); MONO % 6.3 % (2.0-8.0); NEUTROPHILS # 16.9 10^3/uL (1.5-8.5); PLATELET COUNT, AUTOMATED 537 10^3/uL (150-450); RED BLOOD COUNT 3.41 10^6/uL (4.00-5.40); WHITE BLOOD COUNT 19.6 10^3/uL (4.0-10.0)
[2021-12-13] MEDS ORDERED: AZITHROMYCIN INJ 500 MG, VIAL MATE ADAPTER 1 EACH in D5W 250 ML IV ONE (15:45)
[2021-12-13] MEDS ORDERED: cefTRIAXone SOD 1 GM in D5W MINI-BAG PLUS 50 ML IV ONE (15:45)
[2021-12-13 15:50] LABS: ALBUMIN 2.2 GM/DL (3.2-5.2); ALT/SGPT 25 U/L (12-78); BILIRUBIN,DIRECT < 0.1 MG/DL (0.0-0.2); BILIRUBIN,TOTAL 0.5 MG/DL (0.2-1.0); BLOOD UREA NITROGEN 19 MG/DL (7-18); CALCIUM LEVEL 8.9 MG/DL (8.8-10.2); CARBON DIOXIDE LEVEL 23 MEQ/L (21-32); CHLORIDE LEVEL 106 MEQ/L (98-107); CREATININE FOR GFR 1.07 MG/DL (0.55-1.30); GLOMERULAR FILTRATION RATE 51.9 (>32); GLUCOSE, FASTING 114 MG/DL (70-100); NT-PRO BNP 6764 PG/ML (<450); POTASSIUM SERUM 5.1 MEQ/L (3.5-5.1); SODIUM LEVEL 139 MEQ/L (136-145); THYROID STIMULATING HORMONE 0.752 uIU/ML (0.358-3.740); THYROXINE (T4) 11.1 UG/DL (4.5-12.0); TOTAL PROTEIN 6.5 GM/DL (6.4-8.2)
[2021-12-13 15:52] LABS: CK-MB VALUE MASS < 1.0 NG/ML (<3.6); CPK CREATINE PHOSPHOKINASE 74 U/L (26-192); MB/CK RELATIVE INDEX 1.35 (< OR =4)
[2021-12-13] MEDS ORDERED: NAPHSOL OU (17:59)
[2021-12-13] MEDS ORDERED: [UNRECOGNIZED DRUG - OTHER] (17:59)
[2021-12-13] MEDS ORDERED: OMEG10002 PO (17:59)
[2021-12-13] MEDS ORDERED: OXYB10TA23 PO (17:59)
[2021-12-13] MEDS ORDERED: HOME MED LIST COMPLETE! XX SCH (18:00)
[2021-12-13] MEDS ORDERED: methylPREDNISolone 40MG 1ML VIAL IV ONE (18:20)
[2021-12-13] MEDS: ADVAIR HFA 230/21MCG INHALER INH SCH (20:13)
[2021-12-13] MEDS: IPRATROPIUM 0.5MG/ALBUTEROL 2.5MG INH SOL UD 3ML (DUONEB) NEB SCH ×2 (20:13→23:38)
[2021-12-13 20:57] VITALS: BP 118/63
[2021-12-13] MEDS: RAMELTEON 8 MG TAB (ROZEREM) PO PRN (21:35)
[2021-12-13] MEDS: ACETAMINOPHEN TAB 650MG DOSE (2X325MG) PO PRN (23:35)
[2021-12-14] MEDS ORDERED: REMDESIVIR 200 MG in NS 250 ML IV ONE ×2
[2021-12-14] MEDS ORDERED: traMADol 50 MG TAB PO ONE (02:00)
[2021-12-14] MEDS ORDERED: SODIUM CHLORIDE 0.9% INJ 10 ML SYR IV ONE (02:00)
[2021-12-14] MEDS: LIDOCAINE 5% (LIDODERM) PATCH TD SCH ×2 (02:33→20:19)
[2021-12-14] MEDS: IPRATROPIUM 0.5MG/ALBUTEROL 2.5MG INH SOL UD 3ML (DUONEB) NEB SCH ×6 (03:40→23:27)
[2021-12-14 05:51] VITALS: BP 113/44
[2021-12-14 07:09] LABS: BASO % 0.2 % (0.0-1.0); HEMATOCRIT 26.6 % (36.0-47.0); HEMOGLOBIN 8.7 g/dl (12.0-15.5); LYMPH # 0.5 10^3/uL (1.5-5.0); LYMPH % 2.7 % (24.0-44.0); MEAN CORPUSCULAR HEMOGLOBIN 31.2 pg (27.0-33.0); MEAN CORPUSCULAR HGB CONC 32.7 g/dl (32.0-36.5); MEAN CORPUSCULAR VOLUME 95.3 fl (80.0-96.0); MONO # 0.3 10^3/uL (0.0-0.8); MONO % 1.5 % (2.0-8.0); NEUTROPHILS # 18.5 10^3/uL (1.5-8.5); NEUTROPHILS % 93.8 % (36.0-66.0); PLATELET COUNT, AUTOMATED 529 10^3/uL (150-450); RED BLOOD COUNT 2.79 10^6/uL (4.00-5.40); WHITE BLOOD COUNT 19.7 10^3/uL (4.0-10.0)
[2021-12-14] MEDS: ADVAIR HFA 230/21MCG INHALER INH SCH ×2 (07:45→21:02)
[2021-12-14 07:55] LABS: ALBUMIN 1.8 GM/DL (3.2-5.2); ALT/SGPT 19 U/L (12-78); BILIRUBIN,DIRECT < 0.1 MG/DL (0.0-0.2); BILIRUBIN,TOTAL 0.4 MG/DL (0.2-1.0); BLOOD UREA NITROGEN 23 MG/DL (7-18); CALCIUM LEVEL 8.3 MG/DL (8.8-10.2); CARBON DIOXIDE LEVEL 24 MEQ/L (21-32); CHLORIDE LEVEL 106 MEQ/L (98-107); CREATININE FOR GFR 1.03 MG/DL (0.55-1.30); GLOMERULAR FILTRATION RATE 54.2 (>32); GLUCOSE, FASTING 172 MG/DL (70-100); MAGNESIUM LEVEL 1.7 MG/DL (1.8-2.4); PHOSPHORUS LEVEL 3.3 MG/DL (2.5-4.9); POTASSIUM SERUM 4.2 MEQ/L (3.5-5.1); SODIUM LEVEL 139 MEQ/L (136-145); TOTAL PROTEIN 5.4 GM/DL (6.4-8.2)
[2021-12-14] MEDS: FLUTICASONE PROP 0.05% NASAL SPRAY 16 GM (FLONASE) NARES SCH (09:00)
[2021-12-14] MEDS: DOXYCYCLINE HYCLATE 100MG TABLET PO SCH ×2 (09:47→20:18)
[2021-12-14] MEDS: cefTRIAXone SOD 1 GM in D5W MINI-BAG PLUS 50 ML IV SCH (09:47)
[2021-12-14] MEDS: ENOXAPARIN 30MG/0.3ML SYRINGE (J1650 PER 10MG) SC SCH (09:47)
[2021-12-14 14:00] VITALS: BP 113/44
[2021-12-14] MEDS: guaiFENesin DM LIQ 10ML UD PO PRN (17:37)
[2021-12-14] MEDS ORDERED: MAGNESIUM OXIDE 400MG TAB (MAG-OX) PO ONE (19:00)
[2021-12-14] MEDS: ACETAMINOPHEN TAB 650MG DOSE (2X325MG) PO PRN (20:18)
[2021-12-14] MEDS: RAMELTEON 8 MG TAB (ROZEREM) PO PRN (20:18)
[2021-12-14] MEDS: REMDESIVIR 100 MG in NS 250 ML IV SCH (20:19)
[2021-12-14 22:00] VITALS: BP 122/62
[2021-12-14] MEDS: SODIUM CHLORIDE 0.9% INJ 10 ML SYR IV SCH (22:09)
[2021-12-15] MEDS: IPRATROPIUM 0.5MG/ALBUTEROL 2.5MG INH SOL UD 3ML (DUONEB) NEB SCH ×5 (04:00→18:22)
[2021-12-15] MEDS: guaiFENesin DM LIQ 10ML UD PO PRN (05:17)
[2021-12-15 05:19] VITALS: BP 123/46
[2021-12-15] MEDS: FLUTICASONE PROP 0.05% NASAL SPRAY 16 GM (FLONASE) NARES SCH (09:00)
[2021-12-15] MEDS: ADVAIR HFA 230/21MCG INHALER INH SCH ×2 (09:23→18:22)
[2021-12-15] MEDS ORDERED: MOM 30ML SUSPENSION UDC PO ONE (09:50)
[2021-12-15] MEDS: cefTRIAXone SOD 1 GM in D5W MINI-BAG PLUS 50 ML IV SCH (10:40)
[2021-12-15] MEDS: DOCUSATE SODIUM 100MG CAPSULE PO SCH ×2 (10:41→20:39)
[2021-12-15] MEDS: ENOXAPARIN 30MG/0.3ML SYRINGE (J1650 PER 10MG) SC SCH (10:41)
[2021-12-15] MEDS: ACETAMINOPHEN TAB 650MG DOSE (2X325MG) PO PRN (10:41)
[2021-12-15] MEDS: DOXYCYCLINE HYCLATE 100MG TABLET PO SCH ×2 (10:41→20:39)
[2021-12-15 12:59] LABS: HEMATOCRIT 28.2 % (36.0-47.0); HEMOGLOBIN 9.4 g/dl (12.0-15.5); MEAN CORPUSCULAR HEMOGLOBIN 30.8 pg (27.0-33.0); MEAN CORPUSCULAR HGB CONC 33.3 g/dl (32.0-36.5); MEAN CORPUSCULAR VOLUME 92.5 fl (80.0-96.0); PLATELET COUNT, AUTOMATED 621 10^3/uL (150-450); RED BLOOD COUNT 3.05 10^6/uL (4.00-5.40); WHITE BLOOD COUNT 17.7 10^3/uL (4.0-10.0)
[2021-12-15 13:49] LABS: CALCIUM LEVEL 8.2 MG/DL (8.8-10.2); CREATININE FOR GFR 0.98 MG/DL (0.55-1.30); GLOMERULAR FILTRATION RATE 57.4 (>32); PHOSPHORUS LEVEL 3.2 MG/DL (2.5-4.9); POTASSIUM SERUM 4.5 MEQ/L (3.5-5.1)
[2021-12-15 14:00] VITALS: BP 110/42
[2021-12-15] MEDS: REMDESIVIR 100 MG in NS 250 ML IV SCH (20:39)
[2021-12-15] MEDS: LIDOCAINE 5% (LIDODERM) PATCH TD SCH (20:39)
[2021-12-15] MEDS: SODIUM CHLORIDE 0.9% INJ 10 ML SYR IV SCH (20:40)
[2021-12-15 20:59] VITALS: BP 104/65
[2021-12-15] MEDS ORDERED: RAMELTEON 8 MG TAB (ROZEREM) PO SCH (21:00)
[2021-12-16] MEDS: IPRATROPIUM 0.5MG/ALBUTEROL 2.5MG INH SOL UD 3ML (DUONEB) NEB SCH ×3 (00:33→08:00)
[2021-12-16] MEDS: guaiFENesin DM LIQ 10ML UD PO PRN (04:36)
[2021-12-16] MEDS: ACETAMINOPHEN TAB 650MG DOSE (2X325MG) PO PRN ×2 (04:37→10:38)
[2021-12-16 05:11] VITALS: BP 116/62
[2021-12-16 07:00] LABS: HEMATOCRIT 25.8 % (36.0-47.0); HEMOGLOBIN 8.6 g/dl (12.0-15.5); MEAN CORPUSCULAR HEMOGLOBIN 30.9 pg (27.0-33.0); MEAN CORPUSCULAR HGB CONC 33.3 g/dl (32.0-36.5); MEAN CORPUSCULAR VOLUME 92.8 fl (80.0-96.0); PLATELET COUNT, AUTOMATED 581 10^3/uL (150-450); RED BLOOD COUNT 2.78 10^6/uL (4.00-5.40); WHITE BLOOD COUNT 12.3 10^3/uL (4.0-10.0)
[2021-12-16] MEDS: ADVAIR HFA 230/21MCG INHALER INH SCH (08:10)
[2021-12-16] MEDS ORDERED: DOXY100T PO (08:54)
[2021-12-16] MEDS ORDERED: GUAISYP5 PO (08:54)
[2021-12-16] MEDS ORDERED: COLA100C5 PO (08:54)
[2021-12-16] MEDS ORDERED: CEFD300C41 PO (08:56)
[2021-12-16] MEDS: ENOXAPARIN 30MG/0.3ML SYRINGE (J1650 PER 10MG) SC SCH (09:00)
[2021-12-16] MEDS: FLUTICASONE PROP 0.05% NASAL SPRAY 16 GM (FLONASE) NARES SCH (09:00)
[2021-12-16] MEDS ORDERED: VENTAER INH (09:01)
[2021-12-16] MEDS: DOCUSATE SODIUM 100MG CAPSULE PO SCH (10:38)
[2021-12-16] MEDS: cefTRIAXone SOD 1 GM in D5W MINI-BAG PLUS 50 ML IV SCH (10:38)
[2021-12-16] MEDS: DOXYCYCLINE HYCLATE 100MG TABLET PO SCH (10:39)
[2021-12-16] MEDS ORDERED: CALCIUM CARBONATE 500 MG CHEW U/D PO ONE (10:45)
== END 2021-12-16 11:13 | disposition home or self-care (01) | DRG 177 ==
LOC: M ED 11:35 → M ED INP 18:07 → M MSPAV 20:56
PROVIDERS: ADMIT Internal Medicine; ATTEND Internal Medicine
PROC: XW033E5 Introduction of Remdesivir Anti-infective into Peripheral Vein, Percutaneous Approach, New Technology Group 5 (ICD-10-PCS; principal; 2021-12-14)
DX: U07.1 COVID-19 (principal); J12.82 Pneumonia due to coronavirus disease 2019; D64.9 Anemia, unspecified; K21.9 Gastro-esophageal reflux disease without esophagitis; M19.90 Unspecified osteoarthritis, unspecified site; Z95.0 Presence of cardiac pacemaker; R07.89 Other chest pain; Z79.899 Other long term (current) drug therapy; Z91.011 Allergy to milk products; K59.00 Constipation, unspecified; D69.6 Thrombocytopenia, unspecified

== ENCOUNTER → 2022-08-08 | Outpatient (CLI) | payer MEDICARE, BC ==
[~2022-08-08] MED LIST changes: +CEFD300C41 PO; +COLA100C5 PO; +DOXY100T PO; +GUAISYP5 PO; +NAPHSOL OU; +OMEG10002 PO; +OXYB10TA23 PO; +VENTAER INH; +[UNRECOGNIZED DRUG - OTHER]
== END ==
LOC: M WHC 13:24
PROVIDERS: ATTEND Internal Medicine Cardiovascular Disease
DX: Z12.31 Encounter for screening mammogram for malignant neoplasm of breast (principal)

== ENCOUNTER 2023-03-07 23:32 | Emergency (ER) | payer MEDICARE, BC ==
[~2023-03-07] VITALS: Ht 157.5 cm; Wt 55.0 kg
[~2023-03-07 23:32] MED LIST changes: +CEFD1CAP9 PO; -CEFD300C41 PO
[2023-03-07] MEDS ORDERED: EPINEPHrine 1MG/10ML SYRINGE 1.5IN ONE (23:33)
[2023-03-07] MEDS ORDERED: SODIUM BICARBONATE 8.4% INJ 50ML SYRINGE ONE (23:33)
[2023-03-07] MEDS ORDERED: MAGNESIUM SULFATE 1GM/2ML (8MEQ/2ML) VIAL ONE (23:33)
== END 2023-03-08 03:22 | disposition expired ==
LOC: M ED 23:32
DX: I46.9 Cardiac arrest, cause unspecified (principal); S61.412A Laceration without foreign body of left hand, initial encounter; S61.411A Laceration without foreign body of right hand, initial encounter; S00.03XA Contusion of scalp, initial encounter; W10.8XXA Fall (on) (from) other stairs and steps, initial encounter; Y92.009 Unspecified place in unspecified non-institutional (private) residence as the place of occurrence of the external cause; Y93.9 Activity, unspecified; Y99.9 Unspecified external cause status; Z79.899 Other long term (current) drug therapy
CPT/HCPCS: 99284; J0171; J3475